=== PATIENT | female | born 1955 | race Caucasian/White ===

== ENCOUNTER 2020-03-26 08:18 | Outpatient (REF) | payer OTHER, SELFPAY | END 2020-03-26 08:19 | disposition home or self-care (01) | LOC: HO.LAB 08:18 | PROVIDERS: PCP Internal Medicine; Visit Provider Internal Medicine | DX: Z20.828 Contact with and (suspected) exposure to other viral communicable diseases (principal) | CPT/HCPCS: C9803; U0003 ==

== ENCOUNTER 2020-06-04 10:09 | Outpatient (REF) | payer OTHER, SELFPAY | END 2020-06-04 10:10 | disposition home or self-care (01) | LOC: HO.LAB 10:09 | PROVIDERS: PCP Internal Medicine; Visit Provider Internal Medicine | DX: Z20.822 Contact with and (suspected) exposure to COVID-19 (principal) | CPT/HCPCS: 36415; C9803; U0003 ==

== ENCOUNTER → 2021-03-30 14:44 | Outpatient (REF) | payer OTHER, SELFPAY ==
--- NOTE | 2021-03-30 14:48 | CA_ITS ---
INDICATIONS: OTHER SPECIFIED SOFT TISSUE DISORDERS BILATERAL ANKLE EDEMA HT: 5'2 WT: 252 BSA: BP: 120/80 M-MODE/2D MEASUREMENTS: LVd: 4.67 LVs: 3.14 IVSd: 1.10 IVSs: LVPWd: .97 LVPWs: ASC AORTA: 3.0 RVd: 3.15 AO Root: 3.8 LA: 3.0 AV Cusp: LVOT: 24 EF% 60-65% TAPSE: 1.78 OTHER: EFFUSION: 0 THROMBUS: 0 WALL MOTION: RVSP: MITRAL E/A: 59.6/72.4 = ,8 E MED 4.57 E LAT. 5.55 AV CUSPS TRILEAFLET: DOPPLER MEASUREMENTS: AORTIC PP mmHg MP mmHg VELOCITY: 154 m/s VALVE AREA: 3.53 cm^2 RA VOL. 14.2 IVC: 1.67 LA VOL. 22.5 RVS: 10 MTDD
--- NOTE | 2021-03-30 14:48 | CA_ITS ---
Transthoracic Echocardiogram Patient (Last, First, Middle): Rena Cancino A Gender: Female Date of : 1955 Age: 65 Procedure Date: 03/30/2021 Procedure Type: Transthoracic Echocardiogram Location: OP Height: 157.48 cm Weight: 114.31 kg BSA: 2.11 m2 Heart Rate: bpm BP: 120 / 80 mmHg Personal Care Aid: LUIS Sheffield MD: Radha PRAJAPATI Nursing Teacher: Marc Ewing MD Symptoms: M79.89 - Other specified soft tissue disorders Study Quality: Technically Difficult ECG Rhythm: Sinus Conclusions: - 1. Normal LV systolic function with impaired relaxation filling pattern 2. Normal cardiac valvular Doppler 3. Normal RV systolic pressure 4. No gross pericardial effusion Findings Left Ventricle Normal left ventricular size, thickness, and systolic function. The visually estimated ejection fraction is between 55-60%. Regional wall motion abnormalities can not be excluded due to suboptimal endocardial definition. Spectral Doppler is indicative of an impaired relaxation filling pattern. E/E prime ratio is between 8 and 15 consistent with indeterminate filling pressures. Right Ventricle Normal right ventricular cavity size. There is normal right ventricular systolic function. Atria The left atrium is normal in size. Interatrial shunt cannot be excluded. The right atrium was not well visualized. Aortic Valve The aortic valve was not well visualized. There is no aortic valve stenosis. There is no aortic valve regurgitation. Mitral Valve Likely normal mitral valve structure and function. There is trace mitral valve regurgitation. There is no mitral valve stenosis. Pulmonic Valve The pulmonic valve was not well visualized. Tricuspid Valve Likely normal tricuspid valve structure and function. There is trace tricuspid valve regurgitation. The right ventricular systolic pressure is normal. The right ventricular systolic pressure is 21 mmHg. Normal right atrial pressure. There is no evidence of pulmonary hypertension. Great Vessels All visible segments of the aorta are normal in size. The pulmonary artery was not well visualized. Venous The inferior vena cava is normal in size and collapses greater than 50% with inspiration. Pericardium/Pleural There is no evidence of pericardial effusion. Prior Study Comparison No significant change compared to prior study dated: 01/26/2019. Measurements 2D Linear Measurements IVSd: 1.10 0.6-0.9/0.6-1.0 cm LVIDd: 4.67 3.9-5.3/4.2-5.9 cm LVIDd Index: 2.21 2.4-3.2/2.2-3.1 cm/m2 LVIDs: 3.14 2.0-3.6 cm LVPWd: 0.97 0.7-1.1 cm Ao Root: 3.80 2.1-3.5 cm LA Diam: 3.00 2.7-3.8/3.0-4.0 cm LAIDs Index: 1.42 1.5-2.3 cm/m2 LV Mass: 212.65 67-162/88-224 g LV Mass Index: 100.78 43-95/49-115 g/m2 LVOT Diam: 2.40 3.0+(-)1.3 cm 2D Systolic Function EF 4C: 59.20 >55% EF 2C: 55.90 >55% EF BiP: 56.90 >55% Mitral Valve MV Pk E: 0.60 MV PK A: 0.72 MV Decel Time: 338.00 E/A: 0.80 E'Lateral: 5.55 E'Medial: 4.57 E/E' Med: 13.00 E/E' Lat: 10.70 PHT: 99.00 MVA PHT: 2.22 Decel [place]: 1.76 Aortic Valve AoV Pk Van: 1.54 AoV Mn Vna: 1.11 AoV VTI: 0.34 AoV Pk Grad: 9.00 Aov Mn Grad: 5.00 REGINALD Cont.VTI: 3.53 LVOT LVOT Pk Van: 1.25 LVOT Mn Avn: 0.80 LVOT VTI: 0.27 LVOT Pk Grad: 6.00 LVOT Mn Grad: 3.00 LVOT Diam: 2.40 LVOT Area: 4.52 Diastolic Function MV Pk E: 0.60 MV Pk A: 0.72 E/A: 0.80 E'Medial: 4.57 E/E' Med: 13.00 E' Laterial: 5.55 E/E' Lat: 10.70 Right Ventricle TAPSE (mm): 1.78 Tricuspid Valve TR Pk Van: 1.78 TR Pk Grad: 13.00 RA Press: 8.00 RVSP: 21.00 Great Vessels Aorta Ao Root-2D: 3.80 2.0-3.7 cm Ao Asc: 3.00 2.1-3.4 cm Updated in Other Vendor System with Status of Final Marc Ewing MD electronically signed on 04/05/2021 3:41:12 PM with status of Final
== END ==
LOC: HO.CARD 14:44
PROVIDERS: PCP Internal Medicine; Visit Provider Nurse Practitioner Family
DX: M79.89 Other specified soft tissue disorders (principal)
CPT/HCPCS: 93306

== ENCOUNTER 2021-04-21 09:44 | Outpatient (REF) | payer OTHER, SELFPAY ==
[2021-04-21 11:05] LABS: Hematocrit 50.7 % (37.0-47.0); Hemoglobin 16.1 g/dl (12.0-16.0); Mean Corpuscular HGB Conc 31.8 g/dl (31.0-35.0); Mean Corpuscular Volume 97.5 fL (80.0-98.0); Mean Platelet Volume 11.8 fL (9.4-12.3); Platelet Count 145 X10*3/uL (160-400); White Blood Count 7.9 X10*3/uL (4.8-10.8)
[2021-04-21 11:39] LABS: Alanine Aminotransferase 30 U/L (0-31); Albumin Level 4.3 g/dL (3.5-5.0); Alkaline Phosphatase 118 U/L (39-117); Anion Gap 15 (12-20); Aspartate Amino Transferase 42 U/L (5-31); Bilirubin Total 0.9 mg/dL (0.0-1.0); Blood Urea Nitrogen 16 mg/dL (9-16); Calcium 9.9 mg/dL (8.4-10.2); Carbon Dioxide 32 mmol/L (22-29); Chloride 103 mmol/L (96-108); Cholesterol 165 mg/dL; Estimated Glomerular Filt Rate 34; Glucose Fasting 88 mg/dL (60-99); HDL Cholesterol 54 mg/dL; LDL Cholesterol Calculated 81 mg/dl; Potassium 4.6 mmol/L (3.3-5.1); Sodium 145 mmol/L (135-145); Total Protein 7.4 g/dL (6.5-8.0); Triglycerides 152 mg/dL
== END 2021-04-21 09:45 | disposition home or self-care (01) ==
LOC: HO.LAB 09:44
PROVIDERS: PCP Internal Medicine; Visit Provider Nurse Practitioner Family
DX: I10 Essential (primary) hypertension (principal)
CPT/HCPCS: 36415; 80053; 80061; 85027

== ENCOUNTER 2021-06-09 12:27 | Outpatient (REF) | payer OTHER, SELFPAY ==
--- NOTE | ~2021-06-09 | US_ITS ---
EXAMINATION: US VENOUS ULTRASOUND WITH DOPPLER LOWER EXTREMITY, LEFT CLINICAL INFORMATION: Leg pain. COMPARISON: None TECHNIQUE: Ultrasound of the deep veins is performed from the hip to the calf with compression sonography and color and pulse Doppler assessment. Spectral analysis with color-flow imaging is performed. FINDINGS: There is normal venous compression and respiratory variation and augmented flow. The visualized common femoral vein, superficial femoral vein, profunda femoral vein, popliteal vein, and the trifurcation region shows no evidence of deep venous thrombosis. The left peroneal vein is not visualized due to calf swelling. There is no significant popliteal fossa cyst. If the patient's symptoms persist, followup ultrasound in 5 days 7 days might be of value to exclude proximal propagation from a non-visualized calf vein. US/US venous duplex LE LT IMPRESSION: No DVT demonstrated in the left lower extremity. Peroneal vein is not seen due to calf swelling.
== END 2021-06-09 12:28 | disposition home or self-care (01) ==
LOC: HO.US 12:27
PROVIDERS: PCP Internal Medicine; Visit Provider Nurse Practitioner Acute Care
DX: R60.0 Localized edema (principal); M79.89 Other specified soft tissue disorders
CPT/HCPCS: 93971

== ENCOUNTER 2021-06-15 11:42 | Outpatient (REF) | payer OTHER, SELFPAY ==
--- NOTE | ~2021-06-15 | XR_ITS ---
EXAMINATION: XR ankle LT min 3V, XR tibia fibula LT 2V CLINICAL INFORMATION: Reason for Exam M79.662 - Pain in left lower leg COMPARISON: Left foot radiographs 07/23/2019 TECHNIQUE: AP, lateral, and oblique views of the ankle and 2 views of the fibula and tibia XR/XR ankle LT min 3V FINDINGS/IMPRESSION: No acute fracture or dislocation. Joint spaces are preserved. No tibiotalar joint effusion. No suprapatellar joint effusion. Plantar calcaneal and Achilles tendon enthesopathy. Marked soft tissue swelling about the ankle and in the calf. Atherosclerotic vascular calcification.
--- NOTE | ~2021-06-15 | XR_ITS ---
EXAMINATION: XR ankle LT min 3V, XR tibia fibula LT 2V CLINICAL INFORMATION: Reason for Exam M79.662 - Pain in left lower leg COMPARISON: Left foot radiographs 07/23/2019 TECHNIQUE: AP, lateral, and oblique views of the ankle and 2 views of the fibula and tibia XR/XR tibia fibula LT 2V FINDINGS/IMPRESSION: No acute fracture or dislocation. Joint spaces are preserved. No tibiotalar joint effusion. No suprapatellar joint effusion. Plantar calcaneal and Achilles tendon enthesopathy. Marked soft tissue swelling about the ankle and in the calf. Atherosclerotic vascular calcification.
== END 2021-06-15 11:43 | disposition home or self-care (01) ==
LOC: HO.XRAY 11:42
PROVIDERS: PCP Internal Medicine; Visit Provider Nurse Practitioner Acute Care
DX: M79.662 Pain in left lower leg (principal)
CPT/HCPCS: 73590; 73610

== ENCOUNTER → 2021-07-31 09:07 | Outpatient (BNVA) | payer OTHER, SELFPAY | PROVIDERS: PCP Internal Medicine; Referring Provider Internal Medicine; Visit Provider Internal Medicine | DX: I25.10 Atherosclerotic heart disease of native coronary artery without angina pectoris (principal); E66.01 Morbid (severe) obesity due to excess calories; F17.200 Nicotine dependence, unspecified, uncomplicated; Z71.3 Dietary counseling and surveillance; Z71.6 Tobacco abuse counseling | CPT/HCPCS: 93005; 99212 ==

== ENCOUNTER 2021-09-11 04:20 | Inpatient (IN) | payer OTHER, SELFPAY ==
[2021-09-11] VITALS (13 sets, daily range): BP systolic 109–207; BP diastolic 38–111; PULSE 42–55; RESP 9–28; TEMP 34.5–36.5; O2SAT 88–97; BMI 43.9; BMI 51.4
--- NOTE | ~2021-09-11 | MR_ITS ---
EXAMINATION: MR ABDOMEN WITHOUT AND WITH CONTRAST CLINICAL INFORMATION: Followup renal mass seen on ultrasound. COMPARISON: Abdominal ultrasound from yesterday, previous MRI of the abdomen March [address] of the abdomen March 2015. TECHNIQUE: MR abdomen was performed without and with use of 10 mL intravenous Gadavist gadolinium contrast. Postcontrast images are performed in multiphase dynamic sequences. Imaging was performed in 3 planes. Exam is significantly limited due to motion artifact. FINDINGS: LUNG BASES: The visualized lung bases are unremarkable. LIVER, GALLBLADDER, AND BILIARY TREE: The liver is normal in size and contour. There is signal loss in the liver on [id number] sequences suggestive of fatty infiltration. No focal liver lesion. The gallbladder has been removed. There is no biliary duct dilatation. PANCREAS: Unremarkable. SPLEEN: Normal. ADRENAL GLANDS: There is a right suprarenal 4.2 x 4.7 x 4.4 cm lesion probably adrenal in origin. This does not demonstrate signal loss on gradient echo sequences. This is intermediate to low signal on T1-weighted sequences, heterogeneous in signal on T2-weighted sequences and demonstrates no evidence of enhancement. This is a new finding from previous exams. The left adrenal gland is normal. KIDNEYS AND URETERS: There is a 4.2 x 4.7 x 4.4 cm right suprarenal mass that is probably adrenal in origin. There is a slight increased stranding of the right perinephric fat. Small amount of fluid in the right posterior pararenal fascia. The kidneys are otherwise normal. GASTROINTESTINAL TRACT: No bowel obstruction. No ascites or fluid collection. ABDOMINAL WALL: No significant hernia is appreciated. LYMPH NODES: No lymphadenopathy. VASCULAR: There is dilatation of the lower abdominal aorta measuring 3.2 x 3.3 cm. OSSEOUS STRUCTURES: Marrow signal normal. There are degenerative changes of the spine. MR/MR abdomen wo/w con IMPRESSION: Very limited exam due to motion. New 4.2 x 4.7 x 4.4 cm right suprarenal mass probably adrenal in origin. Slight asymmetric fat stranding in the right perinephric fat and small amount of fluid in the posterior pararenal fascia. This may represent right adrenal hemorrhage. Differential would include a complex cyst. This is a new finding from previous exams. Follow-up CT scan may be helpful. Fatty infiltration of the liver.
--- NOTE | ~2021-09-11 | XR_ITS ---
EXAMINATION: XR CHEST CLINICAL INFORMATION: Shortness of breath COMPARISON: Chest radiograph 05/26/2019 TECHNIQUE: Frontal view of the chest was obtained. FINDINGS: Low lung volumes are present. No effusions or pneumothoraces are identified. The upper lung zones are partially obscured from visualization by maxillofacial structures projected over the upper thorax. Making allowances for low lung volumes, grossly normal pattern of pulmonary vasculature is noted. No focal pulmonary consolidation noted. Single subpleural reticular opacity is present peripherally in the left lung base and may represent minimal atelectasis. XR/XR chest 1V IMPRESSION: Low lung volumes; otherwise, no acute cardiopulmonary abnormalities identified.
--- NOTE | ~2021-09-11 | US_ITS ---
EXAMINATION: US ABDOMEN LIMITED CLINICAL INFORMATION: Transaminitis. COMPARISON: Previous MRI of the abdomen March [address] of the abdomen and pelvis March 2020 TECHNIQUE: Real-time imaging of the right upper quadrant abdominal viscera. FINDINGS: PANCREAS: Not well visualized due to bowel gas. LIVER: Liver echotexture is increased. The liver is heterogeneous probably representing fatty infiltration with areas of focal fatty sparing. The liver is normal in size and contour. There is no biliary duct dilatation. GALLBLADDER: Surgically removed COMMON BILE DUCT: Slightly dilated measuring 1 cm in diameter. This may be normal postcholecystectomy. RIGHT KIDNEY: There is a 3.9 x 4.5 x 4.2 cm hypoechoic solid lesion in the upper pole worrisome for a renal mass. No hydronephrosis. No renal calculi. The kidney measures 11.2 cm in maximum dimension. FREE FLUID: None. US/US abdomen limited IMPRESSION: Echogenic heterogeneous liver echotexture probably representing fatty infiltration with areas of focal fatty sparing. 3.9 x 4.5 x 4.2 cm solid hypoechoic lesion in the upper pole of the right kidney worrisome for a mass. Follow-up CT or MRI kidneys with and without contrast recommended. Slightly dilated common bile duct. This may be normal postcholecystectomy. Limited visualization of the pancreas.
--- NOTE | 2021-09-11 05:13 | ED.SOB ---
HPI - SOB/Dyspnea General Chief Complaint: Dyspnea Stated Complaint: Flank pain Time Seen by Provider: 09/11/21 05:13 Source: patient Mode of arrival: ambulatory Limitations: no limitations History of Present Illness HPI Narrative: Patient with increasing shortness of breath and lethargy, states she has right lower abdominal pain. MD elicited complaint: shortness of breath Pertinent past history: COPD Onset (ago): day(s) Timing: constant Severity: severe Known history of: COPD Associated symptoms: cough and wheezing Related Data Home Medications Medication Instructions Recorded Confirmed peginterferon beta-1a 125 mcg/0.5 mcg SUBCUT Q28D 09/11/21 mL subcutaneous pen injector (Plegridy) Previous Rx's Medication Instructions Recorded albuterol sulfate 90 mcg/actuation 2 puff INHALATION Q6H PRN 30 Days 05/04/20 aerosol inhaler (Ventolin HFA) #8.5 g incontinence pad, liner, disp #80 ea 06/07/20 atorvastatin 40 mg tablet 40 mg PO BEDTIME #90 tab 08/08/20 compr.stocking,knee,long,large #2 ea 02/08/21 albuterol sulfate 2.5 mg (3 mL) INHALATION TID PRN 06/09/21 30 Days #270 ml furosemide 20 mg tablet (Lasix) 20 mg PO Q OTHER DAY PRN #14 tab 06/09/21 tiotropium bromide 18 mcg capsule 1 cap INHALATION DAILY 30 Days #3 06/09/21 with inhalation device (Spiriva inh with HandiHaler) diclofenac sodium 1 % topical gel 2 g TOPICAL QID PRN 30 Days #100 g 06/22/21 (Arthritis Pain (diclofenac)) levothyroxine 25 mcg tablet 25 mcg PO DAILY 90 Days #90 tab 06/23/21 ibuprofen 800 mg tablet 800 mg PO Q8H PRN 30 Days #90 tab 07/16/21 aspirin 81 mg tablet,delayed 81 mg PO DAILY #90 tab 07/31/21 release (Adult Low Dose Aspirin) gabapentin 400 mg capsule 400 mg PO TID 30 Days #90 cap 08/20/21 Allergies Allergy/AdvReac Type Severity Reaction Status Date / Time dimethyl fumarate [Tecfidera] Allergy Intermediate hives Verified 09/11/21 05:09 Plegridy Allergy Intermediate Hives Uncoded 09/11/21 05:09 Review of Systems Constitutional: Constitutional: Reports no additional constitutional complaints Eyes: Eyes: Reports no additional eye complaints ENT: Denies dizziness Cardiovascular: Cardiovascular: Reports no additional cardiovascular complaints Respiratory: Respiratory: Reports as per HPI Gastrointestinal: Gastrointestinal: Reports no additional gastrointestinal complaints Genitourinary: Genitourinary: Reports no additional female genitourinary complaints Musculoskeletal: Musculoskeletal: Reports no additional musculoskeletal complaints Integumentary/Breasts: Skin/Breast: Denies rash Neurologic: Reports system reviewed and no additional complaints, except as documented, Denies dizziness and Denies Sensory deficit (Neuro) Psychiatric: Psychiatric: Denies anxiety [facility] Past Medical History Medical History Atherosclerotic cardiovascular disease COPD (chronic obstructive pulmonary disease) Daytime sleepiness Dyslipidemia Essential hypertension History of heart attack Morbid obesity Multiple sclerosis Swelling of both ankles Surgical History History of cholecystectomy History of heart artery stent Family History Family History Father No problems noted. Mother No problems noted. Social History Social History Housing: House Alcohol intake: never Patient Tobacco Use Status: Current everyday Tobacco user Cigarette Packs Per Day: 1 Cigarettes Per Day: 20 e-Cigarette/Vaping Use: Never Used Second Hand Smoke Exposure: No Use of substances other than those prescribed or required for medical reasons: No Advance Directives: No Current occupational status: retired Cognitive needs: No Hearing needs: No Vision needs: No Physical Exam Vital Signs: Vital Signs: Last Vital Signs Temp 94.3 F L 09/11/21 07:56 Pulse 42 L 09/11/21 07:18 Resp 14 09/11/21 07:18 BP 119/38 L 09/11/21 07:18 Pulse Ox 95 09/11/21 07:18 BMI result Body Mass Index 43.9 Const: Other: Ill appearing Nutritional Appearance: obese Orientation/consciousness: oriented to person Limitations: other limitations (lethargic) HEENT: Head: Yes normal to inspection Ears: external ears normal General nose exam: Normal external nose present Mouth: Normal oral and palatal mucosa present and oropharynx normal Throat: Yes posterior oropharynx normal Eyes: General: appearance normal, both eyes and all related structures Neck: Other: supple Neck: Yes normal visual inspection Chest: Chest palpation & inspection: normal inspection of the chest Resp: Other: diffuse rhonchi Cardio: Jugular venous distension: no JVD Rate: regular rate Rhythm: regular rhythm Heart sounds: S1 normal heart sound present and S2 normal heart sound present GI: Inspection: Yes normal to inspection Palpation (GI): Soft to palpation, nontender and No hepatosplenomegaly present Auscultation: normal bowel sounds : General: Yes no CVA tenderness Back/Spine/Pelvis: Back: no CVA tenderness Skin: General skin exam: no rashes or lesions noted Neuro: General: oriented to person Cranial nerves: Yes CN's II-XII intact bilaterally Motor exam (neuro): 5/5 motor strength present throughout Sensory Exam: No Sensory deficit (Neuro) Extrem: Other: bilateral edema Psych: Appearance: grossly normal Course Reevaluation(s) Reevaluation #1: Activated code sepsis for lethargy and hypothermia and bradycardia. Lactic acid 1.7, no WBC, LFTs are abnormal but have been chronically abnormal. With the hypothermia and bradycardia, I believe this is most likely hypothyroidism with COPD exacerbation. Will give ceftriaxone, solumedrol for COPD but will also give IV synthroid Time: 06:30 Reevaluation #2: Will cancel the 3L of fluid and give 1L as patient is not in septic shock and is chronically fluid overloaded Time: 06:31 Reevaluation #3: Discussed with Dr. Negrete will come and see the patient, TSH came back 26 Time: 07:41 MDM - SOB/Dyspnea Lab Data Result diagrams: 09/11/21 05:45 09/11/21 05:45 Labs: Lab Results 09/11/21 09/11/21 09/11/21 Range/Units 05:45 05:45 05:45 WBC (4.8-10.8) X10*3/uL RBC (4.20-5.50) X10*6/uL Hgb (12.0-16.0) g/dl Hct (37.0-47.0) % MCV (80.0-98.0) fL MCH (27.0-33.0) pg MCHC (31.0-35.0) g/dl RDW (11.0-16.0) % Plt Count (160-400) X10*3/uL MPV (9.4-12.3) fL Immature Gran % (Auto) (0.0-0.4) % Neut % (Auto) (45-73) % Lymph % (Auto) (20-40) % [place] % (Auto) (2-11) % Eos % (Auto) (0-4) % Baso % (Auto) (0-2) % Lymph # (Auto) (1.2-4.9) X10*3/uL [place] # (Auto) (0.1-1.2) X10*3/uL Eos # (Auto) (0.0-0.4) X10*3/uL Baso # (Auto) (0.0-0.2) X10*3/uL Abs Immat Gran (auto) (0.00-0.03) X10*3/uL Absolute Neuts (auto) (2.0-8.3) x10*3/uL Absolute Nucleated RBC (0.0-0.012) X10*3/uL Nucleated RBC % (auto) (0.0-0.2) /100WBC PT (9.9-13.0) SEC INR (0.9-1.1) APTT (24.1-38.0) SEC VBG pH (7.32-7.43) VBG pCO2 mmHg VBG pO2 mmHg VBG HCO3 (22-26) mmol/L VBG O2 Saturation % VBG Base Excess mmol/L Sodium 137 (135-145) mmol/L Potassium 3.6 D (3.3-5.1) mmol/L Chloride 91 L (96-108) mmol/L Carbon Dioxide 34 H (22-29) mmol/L Anion Gap 16 (12-20) BUN 9 (9-16) mg/dL Creatinine 1.33 (0.5-1.4) mg/dL Estim Creat Clear Calc 49.6 Estimated GFR 40 Random Glucose 91 (60-115) mg/dL Lactic Acid 1.7 (0.5-2.0) mmol/L Calcium 9.6 (8.4-10.2) mg/dL Total Bilirubin 1.6 H (0.0-1.0) mg/dL AST 75 H (5-31) U/L ALT 39 H (0-31) U/L Alkaline Phosphatase 112 (39-117) U/L Troponin I High Sens < 3.5 (<3.5-17.0) ng/L B-Natriuretic Peptide 66 (<100) pg/mL Total Protein 7.8 (6.5-8.0) g/dL Albumin 4.5 (3.5-5.0) g/dL Lipase 22 (8-78) U/L TSH 26.42 H (0.32-4.0) uIU/mL Free T4 0.58 L (0.71-1.85) ng/dL Urine Color Urine Appearance Urine pH (5.0-8.0) Ur Specific [place] (1.005-1.025) Urine Protein (NEG-TRACE) MG/DL Urine Glucose (UA) (NEG) MG/DL Urine Ketones (NEG) MG/DL Urine Blood (NEG) Urine Nitrite (NEG) Ur Leukocyte Esterase (NEG) Urine RBC (0) /HPF Urine WBC (0-4) /HPF Ur Squamous Epith Cells /LPF Urine Bacteria /LPF Hyaline Casts /LPF Granular Casts /LPF COVID-19 (CASEY) (Negative) COVID-19 Clin Com Influenza Type A (JENNA) (Negative) Influenza Type B (JENNA) (Negative) Influenza A & B Note 09/11/21 09/11/21 09/11/21 Range/Units 05:45 05:45 05:50 WBC 8.7 (4.8-10.8) X10*3/uL RBC 5.57 H (4.20-5.50) X10*6/uL Hgb 17.4 H (12.0-16.0) g/dl Hct 52.0 H (37.0-47.0) % MCV 93.4 (80.0-98.0) fL MCH 31.2 (27.0-33.0) pg MCHC 33.5 (31.0-35.0) g/dl RDW 15.8 (11.0-16.0) % Plt Count 124 L (160-400) X10*3/uL MPV 10.4 (9.4-12.3) fL Immature Gran % (Auto) 1.2 H (0.0-0.4) % Neut % (Auto) 78.0 H (45-73) % Lymph % (Auto) 12.2 L (20-40) % [place] % (Auto) 6.3 (2-11) % Eos % (Auto) 1.8 (0-4) % Baso % (Auto) 0.5 (0-2) % Lymph # (Auto) 1.1 L (1.2-4.9) X10*3/uL [place] # (Auto) 0.6 (0.1-1.2) X10*3/uL Eos # (Auto) 0.2 (0.0-0.4) X10*3/uL Baso # (Auto) 0.0 (0.0-0.2) X10*3/uL Abs Immat Gran (auto) 0.10 H (0.00-0.03) X10*3/uL Absolute Neuts (auto) 6.8 (2.0-8.3) x10*3/uL Absolute Nucleated RBC 0.000 (0.0-0.012) X10*3/uL Nucleated RBC % (auto) 0.0 (0.0-0.2) /100WBC PT 10.7 (9.9-13.0) SEC INR 0.9 (0.9-1.1) APTT 50.3 H (24.1-38.0) SEC VBG pH 7.46 H (7.32-7.43) VBG pCO2 49 mmHg VBG pO2 61 mmHg VBG HCO3 35 H (22-26) mmol/L VBG O2 Saturation 91.0 % VBG Base Excess 9.8 mmol/L Sodium (135-145) mmol/L Potassium (3.3-5.1) mmol/L Chloride (96-108) mmol/L Carbon Dioxide (22-29) mmol/L Anion Gap (12-20) BUN (9-16) mg/dL Creatinine (0.5-1.4) mg/dL Estim Creat Clear Calc Estimated GFR Random Glucose (60-115) mg/dL Lactic Acid (0.5-2.0) mmol/L Calcium (8.4-10.2) mg/dL Total Bilirubin (0.0-1.0) mg/dL AST (5-31) U/L ALT (0-31) U/L Alkaline Phosphatase (39-117) U/L Troponin I High Sens (<3.5-17.0) ng/L B-Natriuretic Peptide (<100) pg/mL Total Protein (6.5-8.0) g/dL Albumin (3.5-5.0) g/dL Lipase (8-78) U/L TSH (0.32-4.0) uIU/mL Free T4 (0.71-1.85) ng/dL Urine Color Urine Appearance Urine pH (5.0-8.0) Ur Specific [place] (1.005-1.025) Urine Protein (NEG-TRACE) MG/DL Urine Glucose (UA) (NEG) MG/DL Urine Ketones (NEG) MG/DL Urine Blood (NEG) Urine Nitrite (NEG) Ur Leukocyte Esterase (NEG) Urine RBC (0) /HPF Urine WBC (0-4) /HPF Ur Squamous Epith Cells /LPF Urine Bacteria /LPF Hyaline Casts /LPF Granular Casts /LPF COVID-19 (CASEY) (Negative) COVID-19 Clin Com Influenza Type A (JENNA) (Negative) Influenza Type B (JENNA) (Negative) Influenza A & B Note 09/11/21 09/11/21 09/11/21 Range/Units 07:41 07:41 07:57 WBC (4.8-10.8) X10*3/uL RBC (4.20-5.50) X10*6/uL Hgb (12.0-16.0) g/dl Hct (37.0-47.0) % MCV (80.0-98.0) fL MCH (27.0-33.0) pg MCHC (31.0-35.0) g/dl RDW (11.0-16.0) % Plt Count (160-400) X10*3/uL MPV (9.4-12.3) fL Immature Gran % (Auto) (0.0-0.4) % Neut % (Auto) (45-73) % Lymph % (Auto) (20-40) % [place] % (Auto) (2-11) % Eos % (Auto) (0-4) % Baso % (Auto) (0-2) % Lymph # (Auto) (1.2-4.9) X10*3/uL [place] # (Auto) (0.1-1.2) X10*3/uL Eos # (Auto) (0.0-0.4) X10*3/uL Baso # (Auto) (0.0-0.2) X10*3/uL Abs Immat Gran (auto) (0.00-0.03) X10*3/uL Absolute Neuts (auto) (2.0-8.3) x10*3/uL Absolute Nucleated RBC (0.0-0.012) X10*3/uL Nucleated RBC % (auto) (0.0-0.2) /100WBC PT (9.9-13.0) SEC INR (0.9-1.1) APTT (24.1-38.0) SEC VBG pH (7.32-7.43) VBG pCO2 mmHg VBG pO2 mmHg VBG HCO3 (22-26) mmol/L VBG O2 Saturation % VBG Base Excess mmol/L Sodium (135-145) mmol/L Potassium (3.3-5.1) mmol/L Chloride (96-108) mmol/L Carbon Dioxide (22-29) mmol/L Anion Gap (12-20) BUN (9-16) mg/dL Creatinine (0.5-1.4) mg/dL Estim Creat Clear Calc Estimated GFR Random Glucose (60-115) mg/dL Lactic Acid (0.5-2.0) mmol/L Calcium (8.4-10.2) mg/dL Total Bilirubin (0.0-1.0) mg/dL AST (5-31) U/L ALT (0-31) U/L Alkaline Phosphatase (39-117) U/L Troponin I High Sens (<3.5-17.0) ng/L B-Natriuretic Peptide (<100) pg/mL Total Protein (6.5-8.0) g/dL Albumin (3.5-5.0) g/dL Lipase (8-78) U/L TSH (0.32-4.0) uIU/mL Free T4 (0.71-1.85) ng/dL Urine Color YELLOW Urine Appearance CLEAR Urine pH 7.0 (5.0-8.0) Ur Specific [place] 1.020 (1.005-1.025) Urine Protein 2+ H (NEG-TRACE) MG/DL Urine Glucose (UA) NEG (NEG) MG/DL Urine Ketones NEG (NEG) MG/DL Urine Blood 1+ H (NEG) Urine Nitrite NEG (NEG) Ur Leukocyte Esterase NEG (NEG) Urine RBC 10-14 H (0) /HPF Urine WBC 0-2 (0-4) /HPF Ur Squamous Epith Cells 1+ /LPF Urine Bacteria NONE /LPF Hyaline Casts 0-2 /LPF Granular Casts 0-2 /LPF COVID-19 (CASEY) Negative (Negative) COVID-19 Clin Com See Note Influenza Type A (JENNA) Negative (Negative) Influenza Type B (JENNA) Negative (Negative) Influenza A & B Note See Note Imaging Data Chest x-ray: Radiologist's impression: IMPRESSION: Low lung volumes; otherwise, no acute cardiopulmonary abnormalities identified. ? Procedures Procedure Narrative Procedure Narrative: Patient prepped, IV inserted under ultrasound. Critical Care Time Critical Care Time Attestation: I spent 40 minutes of critical care, with interventions, assessments, speaking to patient, consultants, and family. Discharge Plan Discharge Clinical Impression: Hypothyroid coma, COPD exacerbation Patient Disposition: Admitted As Inpatient
[2021-09-11 05:54] LABS: Mean Corpuscular Volume 93.4 fL (80.0-98.0); Mean Platelet Volume 10.4 fL (9.4-12.3)
[2021-09-11 05:55] LABS: PLT CLUMP 1; SCAN SMEAR FLAG 1
[2021-09-11 05:56] LABS: Basophils Percent Auto 0.5 % (0-2); Eosinophils Absolute Auto 0.2 X10*3/uL (0.0-0.4); Eosinophils Percent Auto 1.8 % (0-4); Hemoglobin 17.4 g/dl (12.0-16.0); Imm Gran Pct Auto 1.2 % (0.0-0.4); Lymphocytes Absolute Auto 1.1 X10*3/uL (1.2-4.9); Lymphocytes Percent Auto 12.2 % (20-40); Mean Corpuscular HGB Conc 33.5 g/dl (31.0-35.0); Mean Corpuscular Hemoglobin 31.2 pg (27.0-33.0); Monocytes Absolute Auto 0.6 X10*3/uL (0.1-1.2); Monocytes Percent Auto 6.3 % (2-11); Neutrophils Absolute Auto 6.8 x10*3/uL (2.0-8.3); Red Blood Count 5.57 X10*6/uL (4.20-5.50); Red Cell Distribution Width 15.8 % (11.0-16.0)
[2021-09-11 05:58] LABS: Venous Blood Gas Refer to POC result
[2021-09-11 06:00] LABS: VBG Base Excess 9.8 mmol/L; VBG HCO3 35 mmol/L (22-26); VBG pCO2 49 mmHg; VBG pH 7.46 (7.32-7.43); VBG pO2 61 mmHg
[2021-09-11 06:02] LABS: Lactic Acid 1.7 mmol/L (0.5-2.0)
[2021-09-11 06:06] LABS: MANUAL DIFF FLAG NO; Platelet Count 124 X10*3/uL (160-400); White Blood Count 8.7 X10*3/uL (4.8-10.8)
[2021-09-11 06:07] LABS: INTERNATIONAL NORM RATIO 0.9 (0.9-1.1); Prothrombin Time 10.7 SEC (9.9-13.0)
[2021-09-11 06:10] LABS: Alanine Aminotransferase 39 U/L (0-31); Albumin Level 4.5 g/dL (3.5-5.0); Alkaline Phosphatase 112 U/L (39-117); Anion Gap 16 (12-20); Aspartate Amino Transferase 75 U/L (5-31); Bilirubin Total 1.6 mg/dL (0.0-1.0); Blood Urea Nitrogen 9 mg/dL (9-16); Calcium 9.6 mg/dL (8.4-10.2); Carbon Dioxide 34 mmol/L (22-29); Chloride 91 mmol/L (96-108); Creatinine Clr Calc Pharmacy 49.6; Estimated Glomerular Filt Rate 40; Glucose Random 91 mg/dL (60-115); Lipase 22 U/L (8-78); Partial Thromboplastin Time 50.3 SEC (24.1-38.0); Potassium 3.6 mmol/L (3.3-5.1); Sodium 137 mmol/L (135-145); Total Protein 7.8 g/dL (6.5-8.0)
[2021-09-11] MEDS: Albuterol Sulfate 90 MCG 8 GM INHALER 4 PUFF INHALE (06:20)
[2021-09-11 06:31] LABS: B Type Natriuretic Peptide 66 pg/mL (<100)
[2021-09-11 06:34] LABS: Troponin-I High Sensitivity < 3.5 ng/L (<3.5-17.0)
[2021-09-11] MEDS: 0.9 % Sodium Chloride 500 ML 999 ML IV (06:48)
[2021-09-11 06:54] LABS: Free T4 (Free Thyroxine) 0.58 ng/dL (0.71-1.85); Thyroid Stimulating Hormone 26.42 uIU/mL (0.32-4.0)
--- NOTE | 2021-09-11 06:54 | PC.NURSE ---
pt came in with sob, unable to ambulate. labs drawn, Iv placed by ultra sound. pt has a low core temp. bear hugger placed. pt Ekg completed. Respiratory provided a breathing treatment.
[2021-09-11] MEDS: Levothyroxine Sodium 100 MCG VIAL 25 MCG IVPUSH (07:17)
--- NOTE | 2021-09-11 07:21 | PC.NURSE ---
Thyroid medication reviewed with Dr. Knox and Pharmacy.
[2021-09-11] MEDS: Atropine Sulfate 1 MG/10 ML SYRINGE 0.5 MG IVPUSH (07:32)
--- NOTE | 2021-09-11 07:51 | PC.NURSE ---
straight cath completed, pt tolerated well. yyellow urine sent to lab. pt lethargic but is arrousable to name, rolled for rectal temp. snoring respiratiosn at times, contin ues on bare hugger.
[2021-09-11 08:03] LABS: Appearance Urine CLEAR; Color Urine YELLOW; Glucose Urine UA NEG (NEG); Leukocyte Esterase Urine NEG (NEG); Nitrite Urine NEG (NEG); UACC Culture Trigger NO; Urine Blood 1+ (NEG); Urine Ketones NEG (NEG); Urine Protein 2+ MG/DL (NEG-TRACE)
[2021-09-11 08:13] LABS: Squamous Epithelial Cell Urine 1+ /LPF
[2021-09-11 08:14] LABS: WBC Urine 0-2 /HPF (0-4)
[2021-09-11 08:15] LABS: Granular Casts Urine 0-2 /LPF; Hyaline Casts Urine 0-2 /LPF
[2021-09-11 08:23] LABS: COVID-19 Test Negative (Negative); IDNOW Serial# 16C4AD1C; Influenza A Negative (Negative); Influenza B2 Negative (Negative)
--- NOTE | 2021-09-11 08:24 | PM.CCN ---
Critical Care Event Note Summary Date of Service: 09/11/21 Code activated: No Narrative: 65-year-old lady with underlying obesity, hypothyroidism, COPD, CAD, poor compliance with medication being admitted on 09/11/2021 with complaints of malaise dyspnea. On ER evaluation patient noted to be hypothermic, bradycardic, but maintain systolic blood pressure in 110 to 120s, lethargic, but arousable and answering appropriately. TSH 26, FT4 0.58, given 25 mcg of IV Synthroid and put on a Jackson Hugger. On my evaluation, lethargic, arousable, answers appropriately, heart rate in 40s, systolic blood pressure 120s, complains of malaise. Would suggest to add additional 75 mcg of IV Synthroid today for total dose of 100 mcg per day, continue over the next 3-5 days, until symptoms improve, to decrease to her baseline dose of 25 mcg daily at that time. At this time patient does not require intensive care unit level of care, please notify for re-evaluation, if patient's condition changes. Critical Care Time (minutes): 0
[2021-09-11 08:48] LABS: Influenza A PCR NEGATIVE (Negative); Influenza B PCR NEGATIVE (Negative); Resp Syncy Virus RNA Qual PCR NEGATIVE (Negative); SARS COV2 PCR INHOUSE NEGATIVE (Negative)
--- NOTE | 2021-09-11 09:23 | P.HPHOSP_ITS ---
History of Present Illness Date of Service: 09/11/21 Chief Complaint: abd pain 65F presented with abd pain for one day. history taken from roomate, as patient is currently obtunded. she states patient has been progressively more lethargic and sleepy over the last few months, she does not follow with physicians and questions her medication compliance. patient does not use CPAP for MAXIMO. she reports weight gain and abdominal and lower extremity swelling. patient had been complaining of feeling sluggish and cold. she has known hypothyroid and is on 25mcg daily at home, but unclear if taking. in ED found to be hypothermic, bradycardic, lethargic. TSH 26.42, free t4 0.58. Review of Systems Review of Systems: Yes Unobtainable due to mental condition PMFSH Medical History Atherosclerotic cardiovascular disease Chronic diastolic (congestive) heart failure COPD (chronic obstructive pulmonary disease) Dyslipidemia Essential hypertension Fatty liver History of heart attack Morbid obesity Multiple sclerosis MAXIMO (obstructive sleep apnea) Family History Father CAD (coronary artery disease) Mother No problems noted. Brother CAD (coronary artery disease) Surgical History History of cholecystectomy History of heart artery stent Social History Housing: House Alcohol intake: never Patient Tobacco Use Status: Current everyday Tobacco user Cigarette Packs Per Day: 1 Cigarettes Per Day: 20 e-Cigarette/Vaping Use: Never Used Second Hand Smoke Exposure: No Use of substances other than those prescribed or required for medical reasons: No Substance Use Type: Crack/Cocaine Advance Directives: No Current occupational status: retired Cognitive needs: No Hearing needs: No Vision needs: No Meds Allergies Allergy/AdvReac Type Severity Reaction Status Date / Time dimethyl fumarate [Tecfidera] Allergy Intermediate hives Verified 09/11/21 05:09 Plegridy Allergy Intermediate Hives Uncoded 09/11/21 05:09 Active Medications: Current Medications Acetaminophen (Acetaminophen 325 Mg Tablet) 650 mg PO Q6H PRN PRN Reason: Pain, Mild (Pain Scale 1-3) Enoxaparin Sodium (Enoxaparin Sodium 40 Mg/0.4 Ml Syringe) 40 mg SUBCUT Q24H [facility] Sodium Chloride (Ns) 1,000 mls @ 999 mls/hr IVCONT .Q1H1M [facility] Stop: 09/11/21 10:45 Levothyroxine Sodium (Levothyroxine Sodium 100 Mcg Vial) 100 mcg IVPUSH DAILY [facility] Pharmacy Consult (Consult Rx Perform Med Rec) 1 each MISCELLANE ONCE PRN PRN Reason: Consult order Sodium Chloride (0.9 % Sodium Chloride Flush 3 Ml Syringe) 3 ml IVFLUSH QSHIFT [facility] Home Medications Medication Instructions Recorded Confirmed Last Taken Type peginterferon beta-1a 125 mcg/0.5 mcg SUBCUT Q28D 09/11/21 Unknown History mL subcutaneous pen injector (Plegridy) Physical Exam Vital Signs and Narrative: Vital Signs: Last Vital Signs Temp 94.3 F L 09/11/21 07:56 Pulse 42 L 09/11/21 07:18 Resp 14 09/11/21 07:18 BP 119/38 L 09/11/21 07:18 Pulse Ox 95 09/11/21 07:18 BMI result Body Mass Index 43.9 General: obtunded HEENT: atraumatic Neck: normal to visual inspection CVS: S1, S2, slow rate Resp: CTA bilateral Chest: non tender GI: soft, non tender, non distended : no CVA tenderness Skin: cool Extremities: LE edema Neuro: obtunded, reacts to sternal rub, protecting airway Psych: impaired insight Results Labs CBC and Chem 7: 09/11/21 05:45 09/11/21 05:45 Labs: Laboratory Results - last 24 hr 09/11/21 09/11/21 09/11/21 05:45 05:45 05:45 MCV MCH MCHC RDW Plt Count MPV Immature Gran % (Auto) Neut % (Auto) Lymph % (Auto) [place] % (Auto) Eos % (Auto) Baso % (Auto) Lymph # (Auto) [place] # (Auto) Eos # (Auto) Baso # (Auto) Abs Immat Gran (auto) Absolute Neuts (auto) Absolute Nucleated RBC Nucleated RBC % (auto) PT INR APTT VBG pH VBG pCO2 VBG pO2 VBG HCO3 VBG O2 Saturation VBG Base Excess Anion Gap 16 Estim Creat Clear Calc 49.6 Estimated GFR 40 Random Glucose 91 Lactic Acid 1.7 Calcium 9.6 Total Bilirubin 1.6 H AST 75 H ALT 39 H Alkaline Phosphatase 112 Troponin I High Sens < 3.5 B-Natriuretic Peptide 66 Total Protein 7.8 Albumin 4.5 Lipase 22 TSH 26.42 H Free T4 0.58 L Urine Color Urine Appearance Urine pH Ur Specific [place] Urine Protein Urine Glucose (UA) Urine Ketones Urine Blood Urine Nitrite Ur Leukocyte Esterase Urine RBC Urine WBC Ur Squamous Epith Cells Urine Bacteria Hyaline Casts Granular Casts COVID-19 (CASEY) COVID-19 Clin Com Influenza Type A (JENNA) Influenza Type A (PCR) Influenza Type B (JENNA) Influenza Type B (PCR) Influenza A & B Note RSV RNA Qual (PCR) SARS-CoV-2 RNA (RT-PCR) 09/11/21 09/11/21 09/11/21 05:45 05:45 05:50 MCV 93.4 MCH 31.2 MCHC 33.5 RDW 15.8 Plt Count 124 L MPV 10.4 Immature Gran % (Auto) 1.2 H Neut % (Auto) 78.0 H Lymph % (Auto) 12.2 L [place] % (Auto) 6.3 Eos % (Auto) 1.8 Baso % (Auto) 0.5 Lymph # (Auto) 1.1 L [place] # (Auto) 0.6 Eos # (Auto) 0.2 Baso # (Auto) 0.0 Abs Immat Gran (auto) 0.10 H Absolute Neuts (auto) 6.8 Absolute Nucleated RBC 0.000 Nucleated RBC % (auto) 0.0 PT 10.7 INR 0.9 APTT 50.3 H VBG pH 7.46 H VBG pCO2 49 VBG pO2 61 VBG HCO3 35 H VBG O2 Saturation 91.0 VBG Base Excess 9.8 Anion Gap Estim Creat Clear Calc Estimated GFR Random Glucose Lactic Acid Calcium Total Bilirubin AST ALT Alkaline Phosphatase Troponin I High Sens B-Natriuretic Peptide Total Protein Albumin Lipase TSH Free T4 Urine Color Urine Appearance Urine pH Ur Specific [place] Urine Protein Urine Glucose (UA) Urine Ketones Urine Blood Urine Nitrite Ur Leukocyte Esterase Urine RBC Urine WBC Ur Squamous Epith Cells Urine Bacteria Hyaline Casts Granular Casts COVID-19 (CASEY) COVID-19 Clin Com Influenza Type A (JENNA) Influenza Type A (PCR) Influenza Type B (JENNA) Influenza Type B (PCR) Influenza A & B Note RSV RNA Qual (PCR) SARS-CoV-2 RNA (RT-PCR) 09/11/21 09/11/21 09/11/21 07:41 07:41 07:41 MCV MCH MCHC RDW Plt Count MPV Immature Gran % (Auto) Neut % (Auto) Lymph % (Auto) [place] % (Auto) Eos % (Auto) Baso % (Auto) Lymph # (Auto) [place] # (Auto) Eos # (Auto) Baso # (Auto) Abs Immat Gran (auto) Absolute Neuts (auto) Absolute Nucleated RBC Nucleated RBC % (auto) PT INR APTT VBG pH VBG pCO2 VBG pO2 VBG HCO3 VBG O2 Saturation VBG Base Excess Anion Gap Estim Creat Clear Calc Estimated GFR Random Glucose Lactic Acid Calcium Total Bilirubin AST ALT Alkaline Phosphatase Troponin I High Sens B-Natriuretic Peptide Total Protein Albumin Lipase TSH Free T4 Urine Color Urine Appearance Urine pH Ur Specific [place] Urine Protein Urine Glucose (UA) Urine Ketones Urine Blood Urine Nitrite Ur Leukocyte Esterase Urine RBC Urine WBC Ur Squamous Epith Cells Urine Bacteria Hyaline Casts Granular Casts COVID-19 (CASEY) Negative COVID-19 Clin Com See Note Influenza Type A (JENNA) Negative Influenza Type A (PCR) NEGATIVE Influenza Type B (JENNA) Negative Influenza Type B (PCR) NEGATIVE Influenza A & B Note See Note RSV RNA Qual (PCR) NEGATIVE SARS-CoV-2 RNA (RT-PCR) NEGATIVE 09/11/21 07:57 MCV MCH MCHC RDW Plt Count MPV Immature Gran % (Auto) Neut % (Auto) Lymph % (Auto) [place] % (Auto) Eos % (Auto) Baso % (Auto) Lymph # (Auto) [place] # (Auto) Eos # (Auto) Baso # (Auto) Abs Immat Gran (auto) Absolute Neuts (auto) Absolute Nucleated RBC Nucleated RBC % (auto) PT INR APTT VBG pH VBG pCO2 VBG pO2 VBG HCO3 VBG O2 Saturation VBG Base Excess Anion Gap Estim Creat Clear Calc Estimated GFR Random Glucose Lactic Acid Calcium Total Bilirubin AST ALT Alkaline Phosphatase Troponin I High Sens B-Natriuretic Peptide Total Protein Albumin Lipase TSH Free T4 Urine Color YELLOW Urine Appearance CLEAR Urine pH 7.0 Ur Specific [place] 1.020 Urine Protein 2+ H Urine Glucose (UA) NEG Urine Ketones NEG Urine Blood 1+ H Urine Nitrite NEG Ur Leukocyte Esterase NEG Urine RBC 10-14 H Urine WBC 0-2 Ur Squamous Epith Cells 1+ Urine Bacteria NONE Hyaline Casts 0-2 Granular Casts 0-2 COVID-19 (CASEY) COVID-19 Clin Com Influenza Type A (JENNA) Influenza Type A (PCR) Influenza Type B (JENNA) Influenza Type B (PCR) Influenza A & B Note RSV RNA Qual (PCR) SARS-CoV-2 RNA (RT-PCR) Imaging Radiologist's Impressions: Impressions Chest X-Ray 09/11/21 06:20 IMPRESSION: Low lung volumes; otherwise, no acute cardiopulmonary abnormalities identified. Assessment and Plan (1) Hypothyroid coma: Status: Acute Plan 65F presented with abd pain, found to be severly hypothyroid abd pain appears comfortable, ?contsipation hypothryoid coma complicatred by metabolic encephalopathy, sinus bradycardia, hypothermia synthroid 100mcg iv daily for several days monitor lachelle pepe morbid obesity multifactorial, low rufus diet treat hypothyroid copd bronchodilators as needed transaminitis suspect NAFLD history of drug use, check hepatitis panel, abd us CAD asa, statin MS outpatient neuro follow up chronic diastolic chf lasix hld statin dvt prophylaxis - lovenox full code Patient is significantly obtunded due to severe hypothyroid causing hypothermia and bradycardia, high risk for decompensation, therefore, likely to require at least 2midnights in hospital Quality Stroke Does the patient have a stroke diagnosis?: No VTE Prior VTE?: No VTE Risk Level:: Medical - moderate - high VTE Device Contraindication: Treatment Not Indicated VTE Drug Contraindication: N/A - Med Ordered
--- NOTE | 2021-09-11 09:24 | PHA.MEDREC ---
Pharmacy Consult ? Medication Reconciliation Pharmacy has completed the medication reconciliation.
[2021-09-11] MEDS: 0.9 % Sodium Chloride 1,000 ML 999 ML IVCONT ×2 (09:33→09:50)
[2021-09-11] MEDS: Levothyroxine Sodium 100 MCG VIAL 75 MCG IVPUSH (09:34)
[2021-09-11] MEDS: Enoxaparin Sodium 40 MG/0.4 ML SYRINGE SUBCUT (09:54)
--- NOTE | 2021-09-11 19:26 | PC.NURSE ---
Report called to Janis BUSBY
[2021-09-11] MEDS: Atorvastatin Calcium 40 MG TABLET PO (20:27)
[2021-09-11] MEDS: 0.9 % Sodium Chloride Flush 3 ML SYRINGE IVFLUSH (20:27)
--- NOTE | 2021-09-11 21:13 | MHC.CM.PN ---
IMM 09/11. Reviewed with HCP/friend Heather Quinn ([phone]). Copy left at bedside. HCP on file. Pt vague, sleeping off and on. States she wants to go home. Pt doesn't seem to understand just how ill she is. Lives with HCP/friend. Uses a nebulizer, cane, walker. Has [employer] services through [employer] insurance. HCP is unsure if patient has been taking her medications. D/C plan pending hospital course. STR vs home with existing services. HCP Heather will provide transportation home. CM to follow for d/c needs.
[2021-09-12 03:52] VITALS: BP 116/62; PULSE 45; RESP 18; TEMP 36.2; O2SAT 92
[2021-09-12 06:41] LABS: Hematocrit 46.2 % (37.0-47.0); Hemoglobin 15.2 g/dl (12.0-16.0); Mean Corpuscular HGB Conc 32.9 g/dl (31.0-35.0); Mean Corpuscular Hemoglobin 31.8 pg (27.0-33.0); Mean Corpuscular Volume 96.7 fL (80.0-98.0); NRBC Pct Auto 0.2 /100WBC (0.0-0.2); Platelet Count 113 X10*3/uL (160-400); Red Blood Count 4.78 X10*6/uL (4.20-5.50); Red Cell Distribution Width 16.3 % (11.0-16.0); White Blood Count 9.6 X10*3/uL (4.8-10.8)
[2021-09-12 06:57] LABS: Anion Gap 13 (12-20); Blood Urea Nitrogen 10 mg/dL (9-16); Calcium 8.6 mg/dL (8.4-10.2); Carbon Dioxide 33 mmol/L (22-29); Chloride 98 mmol/L (96-108); Creatinine Clr Calc Pharmacy 49.1; Estimated Glomerular Filt Rate 36; Glucose Fasting 73 mg/dL (60-99); Magnesium 1.7 mg/dL (1.6-2.6); Potassium 3.2 mmol/L (3.3-5.1); Sodium 141 mmol/L (135-145)
[2021-09-12 07:09] LABS: HBS Num1 2.54 mIU/mL (0-7.99); HBc Num1 0.07 S/CO (0.00-0.79); HBsAGNum1 0.17 S/CO (0.00-0.99); Hepatitis B Core Antibody Nonreactive (Nonreactive); Hepatitis B Surface Antigen Negative (Negative); ~HepC Num1 0.11 S/CO (0.00-0.79); ~Hepatitis B Surface Antibody NONREACTIVE (Nonreactive); ~Hepatitis C Antibody Nonreactive (Nonreactive)
[2021-09-12 07:17] VITALS: BP 129/73; PULSE 54; RESP 18; TEMP 36.1; O2SAT 92
[2021-09-12] MEDS: Aspirin Enteric Coated 81 MG TABLET.DR PO (07:43)
[2021-09-12] MEDS: Potassium Chloride ER 20 MEQ TAB.ER.PRT 40 MEQ PO (07:43)
[2021-09-12] MEDS: 0.9 % Sodium Chloride Flush 3 ML SYRINGE IVFLUSH ×2 (07:43→20:36)
[2021-09-12] MEDS: Levothyroxine Sodium 100 MCG/5 ML VIAL IVPUSH (07:49)
--- NOTE | 2021-09-12 10:18 | HO.PM.IMPN ---
Subjective Subjective Date of Service: 09/12/21 Interval History: cc: right flank pain interval history:more alert, still with pain Cardiovascular Cardiovascular: Reports no additional cardiovascular complaints Respiratory Respiratory: Reports no additional respiratory complaints Physical Exam Vital Signs: Vital Signs: Last Vital Signs Temp 97.0 F 09/12/21 07:17 Pulse 54 09/12/21 07:17 Resp 18 09/12/21 07:17 BP 129/73 09/12/21 07:17 Pulse Ox 92 09/12/21 07:17 BMI result Body Mass Index 51.4 General: AO X 3, no acute distress Resp: CTA bilateral, no accessory muscles used CVS: S1,S2,RRR GI: soft, non tender, non distended Neuro: motor grossly intact, alert Psych: appropriate affect, appropriate insight Objective Data Active Medications Acetaminophen (Acetaminophen 325 Mg Tablet) 650 mg PO Q6H PRN PRN Reason: Pain, Mild (Pain Scale 1-3) Albuterol Sulfate (Albuterol Sulfate 90 Mcg 8 Gm Inhaler) 2 puff INHALE Q6H PRN PRN Reason: bronchospasm Albuterol Sulfate (Albuterol Sulfate (0.083%) 2.5 Mg/3 Ml Vial.Neb) 2.5 mg INHALE TID PRN PRN Reason: bronchospasm Aspirin (Aspirin Enteric Coated 81 Mg Tablet.) 81 mg PO DAILY [facility] Last Admin: 09/12/21 07:43 Dose: 81 mg Documented by: SHINE Atorvastatin Calcium (Atorvastatin Calcium 40 Mg Tablet) 40 mg PO BEDTIME [facility] Last Admin: 09/11/21 20:27 Dose: 40 mg Documented by: MARGE Enoxaparin Sodium (Enoxaparin Sodium 40 Mg/0.4 Ml Syringe) 40 mg SUBCUT Q24H [facility] Last Admin: 09/11/21 09:54 Dose: 40 mg Documented by: SABAS Furosemide (Furosemide 20 Mg Tablet) 20 mg PO Q2D PRN; Protocol PRN Reason: edema Levothyroxine Sodium (Levothyroxine Sodium 100 Mcg/5 Ml Vial) 100 mcg IVPUSH DAILY@0630 [facility] Last Admin: 09/12/21 07:49 Dose: 100 mcg Documented by: SHINE Pharmacy Consult (Consult Rx Perform Med Rec) 1 each MISCELLANE ONCE PRN PRN Reason: Consult order Sodium Chloride (0.9 % Sodium Chloride Flush 3 Ml Syringe) 3 ml IVFLUSH QSHIFT [facility] Last Admin: 09/12/21 07:43 Dose: 3 ml Documented by: SHINE Labs CBC & Chem 7: 09/12/21 06:04 09/12/21 06:04 Labs: Laboratory Results - last 24 hr 09/12/21 09/12/21 09/12/21 06:04 06:04 06:04 MCV 96.7 MCH 31.8 MCHC 32.9 RDW 16.3 H Plt Count 113 L MPV 11.0 Absolute Nucleated RBC 0.020 H Nucleated RBC % (auto) 0.2 Anion Gap 13 Estim Creat Clear Calc 49.1 Estimated GFR 36 Fasting Glucose 73 Calcium 8.6 D Magnesium 1.7 Hep Bs Antigen Negative Hep Bs Antibody NONREACTIVE Hep B Core Total Ab Nonreactive Hepatitis C Ab (EIA) Nonreactive Microbiology Microbiology Results: Microbiology 09/11/21 07:41 Blood Culture - Preliminary Blood - Venous No growth after 24 hours. 09/11/21 05:45 Blood Culture - Preliminary Blood - Venous No growth after 24 hours. Assessment and Plan (1) Renal mass: Status: Acute Plan 65F presented with abd pain, found to be severly hypothyroid abd pain likely due to right renal mass concerning for malignancy pain control check MRI abd (will do inpatient due to continued symptoms) hypothryoid coma complicated by metabolic encephalopathy, sinus bradycardia, hypothermia synthroid 100mcg iv daily for several days much improved likely needs higher than 25mcg daily at baseline, roommate does not think she was taking, but patient insists she was monitor tele morbid obesity multifactorial, low rufus diet treat hypothyroid copd bronchodilators as needed NAFLD weight loss CAD asa, statin MS outpatient neuro follow up chronic diastolic chf lasix hld statin dvt prophylaxis - lovenox full code reason for continued hospitalization: still bradycardic from hypothyroid requriing tele and iv synthroid, also with ongoing abd pain from renal mass Quality Stroke Does the patient have a stroke diagnosis?: No VTE Prior VTE?: No VTE Risk Level:: Medical - moderate - high VTE Device Contraindication: Treatment Not Indicated VTE Drug Contraindication: N/A - Med Ordered
[2021-09-12 11:24] VITALS: BP 166/78; PULSE 55; RESP 19; TEMP 36.4; O2SAT 93
[2021-09-12] MEDS: Enoxaparin Sodium 40 MG/0.4 ML SYRINGE SUBCUT (12:10)
[2021-09-12 15:57] VITALS: BP 168/97; PULSE 59; RESP 19; TEMP 36.7; O2SAT 94
[2021-09-12 19:38] VITALS: BP 122/77; PULSE 56; RESP 19; TEMP 37.1; O2SAT 95
[2021-09-12] MEDS: Atorvastatin Calcium 40 MG TABLET PO (20:36)
[2021-09-12] MEDS: Acetaminophen 325 MG TABLET 650 MG PO (20:41)
[2021-09-13] VITALS (10 sets, daily range): BP systolic 103–142; BP diastolic 64–89; PULSE 46–67; RESP 16–19; TEMP 36.3–36.7; O2SAT 90–98
--- NOTE | 2021-09-13 | ECG_ITS ---
Test Reason : eval bbb Blood Pressure : / mmHG Vent. Rate : 056 BPM Atrial Rate : 056 BPM P-R Int : 196 ms QRS Dur : 096 ms QT Int : 404 ms P-R-T Axes : 053 021 155 degrees QTc Int : 389 ms Sinus bradycardia Septal infarct , age undetermined Abnormal ECG When compared with ECG of 13-MAR-2015 00:00, Minimal criteria for Inferior infarct are no longer Present T wave inversion no longer evident in Anterior leads QT has shortened Referred By: Rahul Guevara Electronically Signed By:Michi Shepard
[2021-09-13] MEDS: Levothyroxine Sodium 100 MCG/5 ML VIAL IVPUSH (05:31)
[2021-09-13 06:20] LABS: Mean Platelet Volume 11.2 fL (9.4-12.3); NRBC Pct Auto 0.3 /100WBC (0.0-0.2); PLT CLUMP 1; Red Cell Distribution Width 16.2 % (11.0-16.0)
[2021-09-13 06:22] LABS: Hematocrit 45.9 % (37.0-47.0); Hemoglobin 14.9 g/dl (12.0-16.0); Mean Corpuscular HGB Conc 32.5 g/dl (31.0-35.0); Mean Corpuscular Hemoglobin 31.6 pg (27.0-33.0); Mean Corpuscular Volume 97.5 fL (80.0-98.0); Red Blood Count 4.71 X10*6/uL (4.20-5.50)
[2021-09-13] MEDS: Nicotine 21 MG PATCH.TD24 TRANSDERMA (06:29)
[2021-09-13 06:35] LABS: Platelet Count 101 X10*3/uL (160-400); White Blood Count 7.7 X10*3/uL (4.8-10.8)
[2021-09-13 06:50] LABS: Anion Gap 12 (12-20); Blood Urea Nitrogen 13 mg/dL (9-16); Calcium 8.9 mg/dL (8.4-10.2); Carbon Dioxide 33 mmol/L (22-29); Chloride 96 mmol/L (96-108); Estimated Glomerular Filt Rate 39; Glucose Fasting 81 mg/dL (60-99); Potassium 3.4 mmol/L (3.3-5.1); Sodium 138 mmol/L (135-145)
[2021-09-13] MEDS: 0.9 % Sodium Chloride Flush 3 ML SYRINGE IVFLUSH ×2 (11:36→15:23)
--- NOTE | 2021-09-13 14:24 | MHC.CM.PN ---
per rounds dc plan pending physical therapy chloe pt saw pt today recommendation was tbd cm will follow
--- NOTE | 2021-09-13 14:36 | P.PNIM_ITS ---
Subjective Subjective Date of Service: 09/13/21 Interval History: cc: Improved right flank pain reporting wheezing interval history: more alert, pain improved in her abdomen Moving around the room with improved shortness of breath Review of Systems No fever, chills but reports generalized weakness No chest pain, palpitation No shortness of breath or coughing but has wheezing improved abdominal pain, no nausea or vomiting No urinary symptoms No any rash or wounds Cardiovascular Cardiovascular: Reports no additional cardiovascular complaints Respiratory Respiratory: Reports no additional respiratory complaints Physical Exam Vital Signs: Vital Signs: Last Vital Signs Temp 97.8 F 09/13/21 11:52 Pulse 61 09/13/21 12:07 Resp 18 09/13/21 11:52 BP 118/65 09/13/21 12:07 Pulse Ox 92 09/13/21 12:07 BMI result Body Mass Index 51.4 Const: Other: Constitutional : Alert, interactive, seems slow in responses,, not in distress Neck : Normal inspection, Supple Cardiovascular : RRR, no JVP, trace bilateral lower extremity edema Respiratory : fair bilateral air entry, no crackles, bilateral scattered expiratory wheezing Gastrointestinal: soft, lax, Normal bowel sounds, Non tender Skin : Warm, Dry Neurological : Alert & oriented x3, No focal deficit , CN 2-12 within normal Objective Data Active Medications Acetaminophen (Acetaminophen 325 Mg Tablet) 650 mg PO Q6H PRN PRN Reason: Pain, Mild (Pain Scale 1-3) Last Admin: 09/12/21 20:41 Dose: 650 mg Documented by: MARLEEN Albuterol Sulfate (Albuterol Sulfate 90 Mcg 8 Gm Inhaler) 2 puff INHALE Q6H PRN PRN Reason: bronchospasm Albuterol Sulfate (Albuterol Sulfate (0.083%) 2.5 Mg/3 Ml Vial.Neb) 2.5 mg INHALE TID PRN PRN Reason: bronchospasm Albuterol/Ipratropium (Albuterol/Iprat 2.5/0.5mg 3 Ml Ampul.Neb) 3 ml INHALE RQ6H WHILE AWAKE [facility] Aspirin (Aspirin Enteric Coated 81 Mg Tablet.) 81 mg PO DAILY [facility] Last Admin: 09/12/21 07:43 Dose: 81 mg Documented by: SHINE Atorvastatin Calcium (Atorvastatin Calcium 40 Mg Tablet) 40 mg PO BEDTIME [facility] Last Admin: 09/12/21 20:36 Dose: 40 mg Documented by: MARLEEN Furosemide (Furosemide 20 Mg Tablet) 20 mg PO Q2D PRN; Protocol PRN Reason: edema Levothyroxine Sodium (Levothyroxine Sodium 100 Mcg/5 Ml Vial) 100 mcg IVPUSH DAILY@0630 [facility] Last Admin: 09/13/21 05:31 Dose: 100 mcg Documented by: ROSE Nicotine (Nicotine 21 Mg Patch.Td24) 21 mg TRANSDERMA DAILY [facility] Last Admin: 09/13/21 06:29 Dose: 21 mg Documented by: ROSE Pharmacy Consult (Consult Rx Perform Med Rec) 1 each MISCELLANE ONCE PRN PRN Reason: Consult order Sodium Chloride (0.9 % Sodium Chloride Flush 3 Ml Syringe) 3 ml IVFLUSH QSHIFT [facility] Last Admin: 09/13/21 11:36 Dose: 3 ml Documented by: GRETA Labs CBC & Chem 7: 09/13/21 06:00 09/13/21 06:00 Labs: Laboratory Results - last 24 hr 09/13/21 09/13/21 06:00 06:00 MCV 97.5 MCH 31.6 MCHC 32.5 RDW 16.2 H Plt Count 101 L MPV 11.2 Absolute Nucleated RBC 0.020 H Nucleated RBC % (auto) 0.3 H Anion Gap 12 Estim Creat Clear Calc 53.0 Estimated GFR 39 Fasting Glucose 81 Calcium 8.9 Imaging MRI - abdomen: Radiologist's impression: Impressions Abdomen MRI 09/12/21 17:48 IMPRESSION: Very limited exam due to motion. New 4.2 x 4.7 x 4.4 cm right suprarenal mass probably adrenal in origin. Slight asymmetric fat stranding in the right perinephric fat and small amount of fluid in the posterior pararenal fascia. This may represent right adrenal hemorrhage. Differential would include a complex cyst. This is a new finding from previous exams. Follow-up CT scan may be helpful. Fatty infiltration of the liver. Microbiology Microbiology Results: Microbiology 09/11/21 07:41 Blood Culture - Preliminary Blood - Venous No growth after 48 hours. 09/11/21 05:45 Blood Culture - Preliminary Blood - Venous No growth after 48 hours. Assessment and Plan (1) Renal mass: Status: Acute (2) MAXIMO (obstructive sleep apnea): Status: Acute (3) Chronic diastolic (congestive) heart failure: Status: Acute (4) COPD (chronic obstructive pulmonary disease): Status: Acute Plan 65F presented with abd pain, found to be severly hypothyroid abd pain improving likely due to right renal mass concerning for malignancy MRI showed 4.5 by for cm mass with possible hemorrhage. Urology reported evaluating the image with Radiology and both think it is an old bleed Hold aspirin and Lovenox pain control To repeat CT scan in 3 months copd exacerbation start IV steroids today NPO tomorrow Duo nebs ATC and p.r.n. Wean oxygen down as tolerated hypothryoid coma complicated by metabolic encephalopathy, sinus bradycardia, hypothermia synthroid 100mcg iv daily for several days much improved likely needs higher than 25mcg daily at baseline, roommate does not think she was taking, but patient insists she was monitor tele To discuss with Endocrinology morbid obesity multifactorial, low rufus diet treat hypothyroid NAFLD weight loss CAD asa, statin MS outpatient neuro follow up chronic diastolic chf lasix hld statin dvt prophylaxis - lovenox full code reason for continued hospitalization: still bradycardic from hypothyroid requriing tele and iv synthroid, Evaluation for possible hemorrhage in adrenal mass, treatment for COPD exacerbation given high chance of decompensation. Quality Stroke Does the patient have a stroke diagnosis?: No VTE Prior VTE?: No VTE Risk Level:: Medical - moderate - high VTE Device Contraindication: Treatment Not Indicated VTE Drug Contraindication: N/A - Med Ordered
[2021-09-13] MEDS: Albuterol/Iprat 2.5/0.5MG 3 ML AMPUL.NEB INHALE ×2 (14:42→18:54)
[2021-09-13] MEDS: methylPREDNISolone Sod Succ 125 MG/2 ML VIAL 60 MG IVPUSH (15:22)
--- NOTE | 2021-09-13 15:56 | PM.HEMONCCN ---
Subjective - Subjective Chief complaint: none reported Consult date: 09/13/21 Requesting Physician: Dr. Guevara Primary Care Provider: Avelina Mclaughlin MD HPI - Consult Narrative Reason for consult: Right adrenal mass/hemorrhage Narrative: Rena Cancino is a 65 year old female who has been admitted for abdominal pain and myxedema coma who was noted to have right suprarenal mass associated with hemorrhage. Patient is a poor historian but as per chart review, patient has been noncompliant with her medications and has not been taking her Synthroid. She was found to be lethargic, hypothermic and bradycardic. She is doing better now since initiation of IV Synthroid. At this time she denies any flank pain or abdominal pain and offers no complaints. Review of Systems - Constitutional Reports as per HPI, Reports fatigue, Reports malaise, Reports weight gain - Neurologic Reports no additional neurologic complaints, Denies dizziness, Denies sensory deficit PMFSH Medical History: Medical History (Last Reviewed 09/13/21 @ 12:08 by Tonya Brown, PT) Atherosclerotic cardiovascular disease Chronic diastolic (congestive) heart failure COPD (chronic obstructive pulmonary disease) Dyslipidemia Essential hypertension Fatty liver History of heart attack Morbid obesity Multiple sclerosis MAXIMO (obstructive sleep apnea) Family History: Family History (Last Reviewed 09/11/21 @ 09:27 by Mark Lay MD) Father CAD (coronary artery disease) Mother No problems noted. Brother CAD (coronary artery disease) Surgical History: Surgical History (Last Reviewed 09/13/21 @ 12:08 by Tonya Brown, PT) History of cholecystectomy History of heart artery stent Social History: Social History (Last Reviewed 09/11/21 @ 09:27 by Mark Lay MD) Living Situation History: Household Members: Other Household Members Other:: lives at friends house Housing: House Tobacco History: Patient Tobacco Use Status: Current everyday Tobacco Cigarette Packs Per Day: 1 Cigarettes Per Day: 20.0 e-Cigarette/Vaping Use: Never Used Second Hand Smoke Exposure: No Substance Use History: Substance Use Type: Crack/Cocaine Occupation Assessmet: service: No Current occupational status: retired Current occupational status: disabled Home Medications and Allergies Current Medications: Current Medications Acetaminophen (Acetaminophen 325 Mg Tablet) 650 mg PO Q6H PRN PRN Reason: Pain, Mild (Pain Scale 1-3) Last Admin: 09/12/21 20:41 Dose: 650 mg Documented by: Albuterol Sulfate (Albuterol Sulfate 90 Mcg 8 Gm Inhaler) 2 puff INHALE Q6H PRN PRN Reason: bronchospasm Albuterol Sulfate (Albuterol Sulfate (0.083%) 2.5 Mg/3 Ml Vial.Neb) 2.5 mg INHALE TID PRN PRN Reason: bronchospasm Albuterol/Ipratropium (Albuterol/Iprat 2.5/0.5mg 3 Ml Ampul.Neb) 3 ml INHALE RQ6H WHILE AWAKE [facility] Last Admin: 09/13/21 14:42 Dose: 3 ml Documented by: Aspirin (Aspirin Enteric Coated 81 Mg Tablet.) 81 mg PO DAILY [facility] Last Admin: 09/12/21 07:43 Dose: 81 mg Documented by: Atorvastatin Calcium (Atorvastatin Calcium 40 Mg Tablet) 40 mg PO BEDTIME [facility] Last Admin: 09/12/21 20:36 Dose: 40 mg Documented by: Furosemide (Furosemide 20 Mg Tablet) 20 mg PO Q2D PRN; Protocol PRN Reason: edema Levothyroxine Sodium (Levothyroxine Sodium 100 Mcg/5 Ml Vial) 100 mcg IVPUSH DAILY@0630 [facility] Last Admin: 09/13/21 05:31 Dose: 100 mcg Documented by: Nicotine (Nicotine 21 Mg Patch.Td24) 21 mg TRANSDERMA DAILY [facility] Last Admin: 09/13/21 06:29 Dose: 21 mg Documented by: Pharmacy Consult (Consult Rx Perform Med Rec) 1 each MISCELLANE ONCE PRN PRN Reason: Consult order Prednisone (Prednisone 20 Mg Tablet) 40 mg PO DAILY [facility] Sodium Chloride (0.9 % Sodium Chloride Flush 3 Ml Syringe) 3 ml IVFLUSH QSHIFT [facility] Last Admin: 09/13/21 15:23 Dose: 3 ml Documented by: Home Medications Medication Instructions Recorded Confirmed Type peginterferon beta-1a 125 mcg/0.5 125 mcg SUBCUT Q28D 09/11/21 09/11/21 History mL subcutaneous pen injector (Plegridy) Allergies Allergy/AdvReac Type Severity Reaction Status Date / Time dimethyl fumarate [Tecfidera] Allergy Intermediate hives Verified 09/11/21 05:09 Plegridy Allergy Intermediate Hives Uncoded 09/11/21 05:09 Physical Exam Vital signs: Vital Signs Temp 98.0 F 09/13/21 15:33 Pulse 61 09/13/21 15:33 Resp 19 09/13/21 15:33 BP 130/72 09/13/21 15:33 Pulse Ox 96 09/13/21 15:33 Intake & Output 09/12/21 09/13/21 09/13/21 18:59 06:59 18:59 Intake Total 100 / 100 600 / 600 Output Total 0 / 0 500 / 500 Balance 100 / 100 100 / 100 Urine Output (Average ml/kg/hr) 0.00 0.33 Intake: Intake, Oral Amount 100 / 100 600 / 600 Output: Output, Urine Amount 0 / 0 500 / 500 Other: Breakfast % Eaten 50% 100% Lunch % Eaten 75% 100% Number of Unmeasured Voids 1 Number of Bowel Movements 1 Urine Bathroom Bathroom Urine Color Yellow Stool Bathroom Bathroom Stool Amount Large Stool Color Brown Stool Consistency Loose Weight 127.6 kg - Constitutional Present: no acute distress, morbidly obese - Routine HEENT Exam Eye: Present: periorbital swelling - Routine Respiratory Exam Present: prolonged expiratory phase, rhonchi - Routine Cardiovascular Exam Cardiovascular: Present: RRR, S1, S2 - Routine Abdominal Exam Present: soft - Routine Extremities Exam Present: pedal edema - Routine Skin Exam Present: dry Hem/Onc Consult Result - Labs CBC & Chem 7: 09/13/21 06:00 09/13/21 06:00 Labs: Short CBC 09/13/21 Range/Units 06:00 WBC 7.7 (4.8-10.8) X10*3/uL Hgb 14.9 (12.0-16.0) g/dl Hct 45.9 (37.0-47.0) % Plt Count 101 L (160-400) X10*3/uL BMP 09/13/21 06:00 Sodium 138 Potassium 3.4 Chloride 96 Carbon Dioxide 33 H BUN 13 Creatinine 1.37 Calcium 8.9 Assessment and Plan Patient Active problem list reviewed?: Yes (1) Adrenal abnormality Status: Acute Assessment and plan: 1. This is a 65-year-old woman admitted for myxedema coma and noted to have right adrenal abnormality on imaging. MRI abdomen with and without contrast performed 09/12/21 revealed a right suprarenal 4.2 x 4.7 x 4.4 cm lesion read as probably add renal in origin. This could represent right adrenal hemorrhage or a complex cyst. Patient has been taken off aspirin and Lovenox. Her H&H is stable. She reports no significant abdominal or flank pain. She denies any past history of bleeding disorder or coagulopathy. Her PTT is elevated at 50 seconds, I would repeat this and do mixing study if indicated. I agree with repeating CT scan in a few months to reassess. I thank you for this consultation. - Time Spent With Patient Time Spent with Patient (in minutes): 10
--- NOTE | 2021-09-13 16:40 | P.CNUR_ITS ---
History of Present Illness Consult details Consult date: 09/13/21 Narrative: 65-year-old female who presented with increasing lethargy Had been noncompliant with thyroid medication Associated flank pain Imaging was performed which showed question of renal hemorrhage versus cyst MRI discussed with radiology Suggestive of adrenal hemorrhage of unknown duration Had previously been on combination Lovenox and aspirin which has now been held Would recommend repeat CT imaging in 3 months for resolution May need medical follow-up for hormone adjustment Review of Systems Constitutional: Constitutional: Reports as per HPI and Reports no additional constitutional complaints Cardiovascular: Cardiovascular: Reports as per HPI and Reports no additional cardiovascular complaints Respiratory: Respiratory: Reports as per HPI and Reports no additional respiratory complaints Gastrointestinal: Gastrointestinal: Reports as per HPI and Reports no additional gastrointestinal complaints Genitourinary: Genitourinary: Reports as per HPI Musculoskeletal: Musculoskeletal: Reports no additional musculoskeletal co mplaints and Reports as per HPI Neurologic: Reports system reviewed and no additional complaints, except as documented and Reports as per HPI [facility] Past Medical History Medical History Atherosclerotic cardiovascular disease Chronic diastolic (congestive) heart failure COPD (chronic obstructive pulmonary disease) Dyslipidemia Essential hypertension Fatty liver History of heart attack Morbid obesity Multiple sclerosis MAXIMO (obstructive sleep apnea) Family History Family History Father CAD (coronary artery disease) Mother No problems noted. Brother CAD (coronary artery disease) Surgical History Surgical History History of cholecystectomy History of heart artery stent Social History Social History Household Members: Other Household Members Other:: lives at friends house Housing: House Alcohol intake: never Patient Tobacco Use Status: Current everyday Tobacco user Cigarette Packs Per Day: 1 e-Cigarette/Vaping Use: Never Used Second Hand Smoke Exposure: No Substance Use Type: Crack/Cocaine service: No Current occupational status: retired and disabled Cognitive needs: No Hearing needs: No Vision needs: No Meds Allergies Allergy/AdvReac Type Severity Reaction Status Date / Time dimethyl fumarate [Tecfidera] Allergy Intermediate hives Verified 09/11/21 05:09 Plegridy Allergy Intermediate Hives Uncoded 09/11/21 05:09 Active Medications: Current Medications Acetaminophen (Acetaminophen 325 Mg Tablet) 650 mg PO Q6H PRN PRN Reason: Pain, Mild (Pain Scale 1-3) Last Admin: 09/12/21 20:41 Dose: 650 mg Documented by: Albuterol Sulfate (Albuterol Sulfate 90 Mcg 8 Gm Inhaler) 2 puff INHALE Q6H PRN PRN Reason: bronchospasm Albuterol Sulfate (Albuterol Sulfate (0.083%) 2.5 Mg/3 Ml Vial.Neb) 2.5 mg INHALE TID PRN PRN Reason: bronchospasm Albuterol/Ipratropium (Albuterol/Iprat 2.5/0.5mg 3 Ml Ampul.Neb) 3 ml INHALE RQ6H WHILE AWAKE [facility] Last Admin: 09/13/21 14:42 Dose: 3 ml Documented by: Aspirin (Aspirin Enteric Coated 81 Mg Tablet.) 81 mg PO DAILY [facility] Last Admin: 09/12/21 07:43 Dose: 81 mg Documented by: Atorvastatin Calcium (Atorvastatin Calcium 40 Mg Tablet) 40 mg PO BEDTIME [facility] Last Admin: 09/12/21 20:36 Dose: 40 mg Documented by: Furosemide (Furosemide 20 Mg Tablet) 20 mg PO Q2D PRN; Protocol PRN Reason: edema Levothyroxine Sodium (Levothyroxine Sodium 100 Mcg/5 Ml Vial) 100 mcg IVPUSH DAILY@0630 [facility] Last Admin: 09/13/21 05:31 Dose: 100 mcg Documented by: Nicotine (Nicotine 21 Mg Patch.Td24) 21 mg TRANSDERMA DAILY [facility] Last Admin: 09/13/21 06:29 Dose: 21 mg Documented by: Pharmacy Consult (Consult Rx Perform Med Rec) 1 each MISCELLANE ONCE PRN PRN Reason: Consult order Prednisone (Prednisone 20 Mg Tablet) 40 mg PO DAILY [facility] Sodium Chloride (0.9 % Sodium Chloride Flush 3 Ml Syringe) 3 ml IVFLUSH QSHIFT [facility] Last Admin: 09/13/21 15:23 Dose: 3 ml Documented by: Home Medications Medication Instructions Recorded Confirmed Last Taken Type peginterferon beta-1a 125 mcg/0.5 125 mcg SUBCUT Q28D 09/11/21 09/11/21 Unknown History mL subcutaneous pen injector (Plegridy) Physical Exam Vital Signs: Vital Signs: Last Vital Signs Temp 98.0 F 09/13/21 15:33 Pulse 61 09/13/21 15:33 Resp 19 09/13/21 15:33 BP 130/72 09/13/21 15:33 Pulse Ox 96 09/13/21 15:33 BMI result Body Mass Index 51.4 Const: General: cooperative, healthy appearing, comfortable and no acute distress Orientation/consciousness: patient oriented x3 HEENT: Face and sinus: Yes normal facial exam Mouth: moist mucous membranes Neck: Neck: Yes normal visual inspection, Yes full ROM and Yes trachea midline Chest: Chest palpation & inspection: normal inspection of the chest Resp: Effort & Inspection: normal respiratory effort, able to speak in complete sentences and no respiratory distress GI: Inspection: Yes normal to inspection Back/Spine/Pelvis: Cervical Spine: normal cervical lordosis Thoracic/Lumbar Spine: thoracic and lumbar spine normal to inspection Skin: General skin exam: no rashes or lesions noted Neuro: General: patient oriented x3, tone normal and moves all extremities Extrem: General: Yes normal to inspection and Yes capillary refill normal Results Labs Result diagrams: 09/13/21 06:00 09/13/21 06:00 Labs: Abnormal lab results 09/13/21 09/13/21 Range/Units 06:00 06:00 RDW 16.2 H (11.0-16.0) % Plt Count 101 L (160-400) X10*3/uL Absolute Nucleated RBC 0.020 H (0.0-0.012) X10*3/uL Nucleated RBC % (auto) 0.3 H (0.0-0.2) /100WBC Carbon Dioxide 33 H (22-29) mmol/L Short CBC 09/13/21 Range/Units 06:00 WBC 7.7 (4.8-10.8) X10*3/uL Hgb 14.9 (12.0-16.0) g/dl Hct 45.9 (37.0-47.0) % Plt Count 101 L (160-400) X10*3/uL BMP 09/13/21 06:00 Sodium 138 Potassium 3.4 Chloride 96 Carbon Dioxide 33 H BUN 13 Creatinine 1.37 Calcium 8.9 Urine 09/11/21 Range/Units 07:57 Urine Color YELLOW Urine Appearance CLEAR Urine pH 7.0 (5.0-8.0) Ur Specific [place] 1.020 (1.005-1.025) Urine Protein 2+ H (NEG-TRACE) MG/DL Urine Glucose (UA) NEG (NEG) MG/DL All other labs normal. Assessment and Plan (1) Adrenal hemorrhage: Status: Acute Plan Follow-up imaging 3 months Procedures Date of Service Date of Service: 09/13/21
[2021-09-13] MEDS: Atorvastatin Calcium 40 MG TABLET PO (20:06)
[2021-09-14] VITALS (7 sets, daily range): BP systolic 135–172; BP diastolic 67–90; PULSE 53–94; RESP 16–23; TEMP 36.4–36.7; O2SAT 64–95
[2021-09-14] MEDS: 0.9 % Sodium Chloride Flush 3 ML SYRINGE IVFLUSH ×2 (00:22→08:47)
[2021-09-14] MEDS: Levothyroxine Sodium 100 MCG/5 ML VIAL IVPUSH (05:52)
[2021-09-14] MEDS: Albuterol/Iprat 2.5/0.5MG 3 ML AMPUL.NEB INHALE ×2 (07:22→13:35)
[2021-09-14 07:28] LABS: Hematocrit 45.7 % (37.0-47.0); Mean Corpuscular HGB Conc 32.8 g/dl (31.0-35.0); Mean Corpuscular Hemoglobin 31.6 pg (27.0-33.0); Mean Corpuscular Volume 96.2 fL (80.0-98.0); Mean Platelet Volume 11.5 fL (9.4-12.3); Platelet Count 105 X10*3/uL (160-400); Red Blood Count 4.75 X10*6/uL (4.20-5.50); Red Cell Distribution Width 15.8 % (11.0-16.0); White Blood Count 9.4 X10*3/uL (4.8-10.8)
[2021-09-14 07:34] LABS: Anion Gap 17 (12-20); Blood Urea Nitrogen 12 mg/dL (9-16); Calcium 9.5 mg/dL (8.4-10.2); Carbon Dioxide 32 mmol/L (22-29); Chloride 96 mmol/L (96-108); Creatinine Clr Calc Pharmacy 58.7; Estimated Glomerular Filt Rate 44; Glucose Random 96 mg/dL (60-115); Potassium 3.7 mmol/L (3.3-5.1); Sodium 141 mmol/L (135-145)
[2021-09-14 07:53] LABS: Thyroid Stimulating Hormone 31.84 uIU/mL (0.32-4.0)
[2021-09-14] MEDS: predniSONE 20 MG TABLET 40 MG PO (08:38)
[2021-09-14] MEDS: Nicotine 21 MG PATCH.TD24 TRANSDERMA (08:38)
--- NOTE | 2021-09-14 12:18 | PM.DS ---
DS: Providers Provider Date of Service: 09/14/21 Date of admission: 09/11/21 09:17 Primary care physician: Avelina Mclaughlin MD Consults: 09/13/21 08:18 Consult to Hematology / Oncology Routine Consulting Provider: Alejandrina Mtz Reason for consultation: Right Adrenal mass, Consult to Urology Routine Consulting Provider: Frank Kumar Reason for consultation: Rt renal mass with question bleeding for your kind eval. DS: Diagnosis Discharge Diagnosis (1) Adrenal hemorrhage: Status: Acute (2) Acute respiratory failure with hypoxia: Status: Acute (3) Adrenal abnormality: Status: Acute (4) MAXIMO (obstructive sleep apnea): Status: Acute (5) COPD exacerbation: Status: Acute (6) Hypothyroid coma: Status: Acute (7) Smoking: Status: Acute DS: Summary Hospital Course Hospital Course: Admission note HPI 65F presented with abd pain for one day. history taken from roomate, as patient is currently obtunded. she states patient has been progressively more lethargic and sleepy over the last few months, she does not follow with physicians and questions her medication compliance. patient does not use CPAP for MAXIMO. she reports weight gain and abdominal and lower extremity swelling. patient had been complaining of feeling sluggish and cold. she has known hypothyroid and is on 25mcg daily at home, but unclear if taking. in ED found to be hypothermic, bradycardic, lethargic. TSH 26.42, free t4 0.58. Hospital course The patient was admitted to the hospital for evaluation of altered mentation and metabolic encephalopathy, sinus bradycardia and hypothermia which all were believed to be secondary to hypothyroid coma as the patient reported taking her thyroid pill along with the rest of her medications while her roommate does not thing she was even taking them. Her TSH was found around 26 with low T4. Started on IV levothyroxine with good response over the course of hospital stay as she became more alert, oriented and was able to participate with physical therapy sessions who recommended home PT. the case discussed with police communications dispatcher Dr. Glasgow who recommended the patient to be discharged on a higher dose of levothyroxine of 100 mcg and to follow-up with him in the office as referral was placed at the day of discharge. The patient also complained of abdominal pain which was evaluated by an ultrasound showing suprarenal mass. MRI was done confirming the findings showing 4.5x4 cm mass with possible hemorrhage. Images reviewed with Radiology and Urology who suggested an old bleeding and to follow-up in 3 months for repeat images and to hold anticoagulation. The mass was evaluated by oncologist who believe it could be right adrenal hemorrhage or complex cyst that will need repeat imaging in few months to reassess. Endocrinology would like to evaluate her in the office for hormonal studies related to this adrenal gland mass. She was treated for COPD exacerbation associated with acute hypoxic respiratory failure with oxygen supplement, steroids and nebulizers with good response. Evaluated for home O2 which she qualified for as her oxygen level remains below 90. CXR showed hypoinflated lungs likely related to morbid obesity and body habitus. Started on incentive spirometry. Prescribed nicotine patches advised to lose weight. Start levothyroxine 100 mcg daily, take the medication 1st thing in the morning and do not eat or drink for the next hour. Continue prednisone for the next 4 days Quit smoking, use nicotine patches as prescribed To wean oxygen down as needed at home. Use incentive spirometry. To follow-up with Endocrinology after calling for an appointment to follow-up with PCP as planned. Time Spent with Patient Time attestation: Total time spent providing and/or coordinating discharge services: Discharge coordination time: Greater than 30 minutes Quality: Safe Use of Opioids Does Pt have an Active Cancer Diagnosis on the Problem List?: No Quality: Stroke Does the patient have a stroke diagnosis?: No Physical Exam Vital Signs: Vital Signs: Last Vital Signs Temp 98.0 F 09/14/21 11:55 Pulse 74 09/14/21 11:55 Resp 23 H 09/14/21 11:55 BP 160/90 H 09/14/21 11:55 Pulse Ox 93 09/14/21 11:55 BMI result Body Mass Index 51.4 Const: Other: Constitutional : Alert, interactive, better and quicker responses, not in distress, morbidly obese Neck : Normal inspection, Supple Cardiovascular : RRR, no JVP, no bilateral lower extremity edema Respiratory : fair bilateral air entry, no crackles, improved scattered expiratory wheezing Gastrointestinal: soft, lax, Normal bowel sounds, Non tender Skin : Warm, Dry Neurological : Alert & oriented x3, No focal deficit , CN 2-12 within normal DS: Data Data Completed and Pending Labs on day of discharge: Laboratory Results - last 24 hr 09/14/21 09/14/21 09/14/21 06:11 06:11 06:11 WBC 9.4 RBC 4.75 Hgb 15.0 Hct 45.7 MCV 96.2 MCH 31.6 MCHC 32.8 RDW 15.8 Plt Count 105 L MPV 11.5 Absolute Nucleated RBC 0.000 Nucleated RBC % (auto) 0.0 Sodium 141 Potassium 3.7 Chloride 96 Carbon Dioxide 32 H Anion Gap 17 BUN 12 Creatinine 1.24 Estim Creat Clear Calc 58.7 Estimated GFR 44 Random Glucose 96 Calcium 9.5 D TSH 31.84 H Preliminary micro results at discharge 09/11/21 07:41 Blood Culture - Preliminary Blood - Venous No growth after 48 hours. 09/11/21 05:45 Blood Culture - Preliminary Blood - Venous No growth after 48 hours. Imaging MRI - abdomen: Radiologist's impression: ITS Impressions Chest X-Ray 09/11/21 06:20 IMPRESSION: Low lung volumes; otherwise, no acute cardiopulmonary abnormalities identified. Abdomen Ultrasound 09/11/21 11:00 IMPRESSION: Echogenic heterogeneous liver echotexture probably representing fatty infiltration with areas of focal fatty sparing. 3.9 x 4.5 x 4.2 cm solid hypoechoic lesion in the upper pole of the right kidney worrisome for a mass. Follow-up CT or MRI kidneys with and without contrast recommended. Slightly dilated common bile duct. This may be normal postcholecystectomy. Limited visualization of the pancreas. Abdomen MRI 09/12/21 17:48 IMPRESSION: Very limited exam due to motion. New 4.2 x 4.7 x 4.4 cm right suprarenal mass probably adrenal in origin. Slight asymmetric fat stranding in the right perinephric fat and small amount of fluid in the posterior pararenal fascia. This may represent right adrenal hemorrhage. Differential would include a complex cyst. This is a new finding from previous exams. Follow-up CT scan may be helpful. Fatty infiltration of the liver. Discharge Plan Discharge Patient Disposition: Home Health Service Discharge Diagnosis: Hypothyroid coma COPD exacerbation Adrenal gland cyst, hemorrhage Referrals: [facility] [Outside] - 1 Week Brent Glasgow MD [Physician] - 1 Week (Discussed regarding Myxedema coma, Suprarenal cyst\hemorrhage for your kind eval and recommendations ) Avelina Rdz MD [Primary Care Provider] - 1 Week Discharge Medications: New nicotine 21 mg/24 hr Patch 24 Hour 21 mg transdermal DAILY Qty: 28 0RF prednisone 20 mg Tablet 40 mg PO DAILY 4 Days Qty: 8 0RF levothyroxine 100 mcg capsule 100 mcg PO DAILY Qty: 30 0RF Continued albuterol sulfate [Ventolin HFA] 90 mcg/actuation HFA aerosol inhaler 2 puff inhalation Q6H PRN (Reason: bronchospasm) 30 Days Qty: 8.5 3RF (DME) incontinence pad, liner, disp Pad See Rx Instructions .ROUTE .MEDSUPPLY Qty: 80 11RF Rx Instructions: BRAND: FIT RIGHT atorvastatin 40 mg tablet 40 mg PO BEDTIME Qty: 90 3RF (DME) compr.stocking,knee,long,large Misc See Rx Instructions .Route Qty: 2 6RF Rx Instructions: moderate compression 20mmHG diclofenac sodium [Arthritis Pain (diclofenac)] 1 % gel 2 g topical QID PRN (Reason: pain) 30 Days Qty: 100 1RF Rx Instructions: apply to single elbow, wrist or hand; for hand includes palm/fingers/back of hand ibuprofen 800 mg tablet 800 mg PO Q8H PRN (Reason: pain) 30 Days Qty: 90 1RF gabapentin 400 mg capsule 400 mg PO TID 30 Days Qty: 90 1RF Plegridy 125 mcg/0.5 mL pen injector 125 mcg subcut Q28D 0RF furosemide [Lasix] 20 mg tablet 20 mg PO Q OTHER DAY PRN (Reason: edema) Qty: 14 0RF albuterol sulfate 2.5 mg /3 mL (0.083 %) solution for nebulization 2.5 mg inhalation TID PRN (Reason: bronchospasm) 30 Days Qty: 270 4RF Spiriva with HandiHaler 18 mcg capsule, w/inhalation device 1 cap inhalation DAILY 30 Days Qty: 3 2RF Rx Instructions: puncture 1 cap using device; one dose = 2 inhalations aspirin [Adult Low Dose Aspirin] 81 mg tablet,delayed release (DR/EC) 81 mg PO DAILY Qty: 90 3RF Discontinued levothyroxine 25 mcg tablet 25 mcg PO DAILY 90 Days Qty: 90 1RF Discharge Orders: Discharge Order (Routine); Ordered 09/14/21 Ordered By: Rahul Guevara Diet: advance to usual diet Activity on Discharge: As tolerated Stand Alone Forms: Patient Portal Discharge page Care Plan Goals: Read below Health Concerns: Read below Plan of Treatment: Follow-up with [facility] as outpatient within [address] Glasgow. Follow-up with your PCP as scheduled Assessment: You were evaluated in the hospital for altered mentation found to be in hypothyroid, with low level of your thyroid hormone. Treated with IV thyroid hormone with good response over the course of hospital stay as you were able to participate with physical therapy. You were treated with steroids and nebulizers for COPD exacerbation. Nicotine patches were used as well. Start levothyroxine 100 mcg daily, take the medication 1st thing in the morning and do not eat or drink for the next hour. Continue prednisone for the next 4 days Quit smoking, use nicotine patches as prescribed To wean your oxygen down as needed at home. Use incentive spirometry. Discharge Date/Time: 09/14/21 14:42
--- NOTE | 2021-09-14 12:37 | MHC.CM.PN ---
Patient has been medically cleared for dc to home with new VNA today. [facility] is the only accepting VNA and they have been notified of today's dc.Last IMM addressed on 09/12/21.
--- NOTE | 2021-09-14 12:40 | W.MHC.F2F ---
Service Date Service Date: 09/14/21 Encounter Date of encounter: 09/14/21 Reasons for Services Signs and symptoms assessed: physical deconditioning, hypoxia Hypothyroid coma: needs to learn when to take Levothyroxine Reason for custodial: medication treatment and teach disease management Reason for physical therapy: home safety and mobility and therapeutic exercises Homebound: Leaving the home is medically contraindicated at this time without the asist of a device and/or another person due th the listed conditions above and below. Reason homebound: unsteady gait / fall risk Certification: Based on the above findings, I certify that this patient is confined to the home and needs intermittent custodial care, physical therapy and/or speech therapy, or continues to need occupational therapy. The patient is under my care, and I have initiated the establishment of the plan of care. The patient will be followed by a physician who will periodically review the plan of care.
--- NOTE | 2021-09-14 13:25 | MHC.CM.PN ---
Per RN's request, NISHA spoke with Patient's HCP/Heather @ [phone]; Heather will provide transportation to home at 2:30 (message relayed to RN/ Idaina). Heather has also been notified that [facility] will provide services at home.
--- NOTE | 2021-09-14 13:31 | PC.NURSE ---
Per Dr Guevara - patient does not need outpatient MRI in discharge paper work. Order removed.
[2021-09-14 13:38] LABS: Partial Thromboplastin Time 48.3 SEC (24.1-38.0)
== END 2021-09-14 14:42 | disposition home health service (06) | DRG 80 ==
LOC: HO.ED 08:39 → HO.EDOVER 09:22 → HO.IMC 18:50
PROVIDERS: Admitting Provider Internal Medicine; Emergency Provider Emergency Medicine; PCP Internal Medicine; Visit Provider Student in an Organized Health Care Education/Training Program
DX: E03.5 Myxedema coma (principal); G93.41 Metabolic encephalopathy; Z68.43 Body mass index [BMI] 50.0-59.9, adult; J44.1 Chronic obstructive pulmonary disease with (acute) exacerbation; E27.49 Other adrenocortical insufficiency; R68.0 Hypothermia, not associated with low environmental temperature; I25.10 Atherosclerotic heart disease of native coronary artery without angina pectoris; E66.01 Morbid (severe) obesity due to excess calories; G35 Multiple sclerosis; E03.9 Hypothyroidism, unspecified; F17.210 Nicotine dependence, cigarettes, uncomplicated; E78.5 Hyperlipidemia, unspecified; K76.0 Fatty (change of) liver, not elsewhere classified; T38.1X6A Underdosing of thyroid hormones and substitutes, initial encounter; R00.1 Bradycardia, unspecified; Z71.6 Tobacco abuse counseling; Z20.822 Contact with and (suspected) exposure to COVID-19; Z88.8 Allergy status to other drugs, medicaments and biological substances; Z79.52 Long term (current) use of systemic steroids; Z79.82 Long term (current) use of aspirin; Z79.890 Hormone replacement therapy; Z79.899 Other long term (current) drug therapy
CPT/HCPCS: 0241U; 36415; 71045; 74183; 76705; 80048; 80053; 81001; 81003; 82803; 83605; 83690; 83735; 83880; 84439; 84443; 84484; 85025; 85027; 85610; 85730; 86704; 86706; 86803; 87040; 87340; 87502; 87635; 93005; 94640; 96361; 96374; 96375; 97110; 97116; 97162; 99285; A9585; J0461; J1650; J2930

== ENCOUNTER → 2021-10-27 14:29 | Outpatient (BNVA) | payer OTHER, SELFPAY | PROVIDERS: PCP Internal Medicine; Visit Provider Hospitalist | DX: J44.9 Chronic obstructive pulmonary disease, unspecified (principal); J96.10 Chronic respiratory failure, unspecified whether with hypoxia or hypercapnia; G47.33 Obstructive sleep apnea (adult) (pediatric); N28.89 Other specified disorders of kidney and ureter; F17.210 Nicotine dependence, cigarettes, uncomplicated | CPT/HCPCS: 99202 ==

== ENCOUNTER 2021-12-12 13:17 | Outpatient (REF) | payer OTHER, SELFPAY ==
--- NOTE | ~2021-12-12 | MR_ITS ---
EXAMINATION: MR BRAIN WITHOUT AND WITH CONTRAST CLINICAL INFORMATION: MS. New weakness in legs and speech difficulty. COMPARISON: 07/09/2019 MRI TECHNIQUE: Multiplanar, multisequence MRI of the brain was obtained before and after the intravenous administration of 10 mL Gadavist. FINDINGS: Since the previous exam, there is now evidence of a chronic left MCA territory infarct with associated parenchymal gliosis and volume loss in the left parasylvian region which involves the left superior temporal gyrus and left frontal operculum. DWI sequence demonstrates no restricted diffusion. Specifically, there is no evidence for acute or subacute cerebral ischemia or active demyelination. Gradient refocused imaging demonstrates no evidence for hemorrhage, hemosiderin staining or abnormal mineral deposition. Redemonstrated are the previously noted white matter lesions throughout both cerebral hemispheres, with a similar overall distribution and appearance compared to the previous exam with no abnormal enhancement, consistent with MS. There appears to have been mild progression of disease in the deep centrum semiovale bilaterally with more confluence of lesions in this region since the previous exam but no abnormal enhancement. No extra-axial fluid collections, significant space-occupying process or mass effect. The ventricular system is unchanged in appearance without hydrocephalus. There is diminished signal void in the intracranial left internal carotid artery, suggesting the possibility of stenosis or segmental occlusion. Recommend MRA to further assess. There are nonspecific small bilateral mastoid effusions, left more than right similar to the previous exam. MR/MR head/brain wo/w con IMPRESSION: 1. Mild progression of white matter lesions with no abnormal enhancement as described above, mainly involving the deep centrum semiovale bilaterally in the periventricular region. 2. Chronic left MCA territory infarct noted since the previous exam and suspicion for possible stenosis of the intracranial left internal carotid artery. Consider MRA to further assess. 3. No acute intracranial process.
== END 2021-12-12 13:18 | disposition home or self-care (01) ==
LOC: HO.MRI 13:17
PROVIDERS: Visit Provider Psychiatry & Neurology Neurology
DX: G35 Multiple sclerosis (principal)
CPT/HCPCS: 70553; A9585

== ENCOUNTER → 2021-12-19 12:50 | Outpatient (BNVA) | payer OTHER, SELFPAY | PROVIDERS: PCP Internal Medicine; Visit Provider Urology | DX: E27.49 Other adrenocortical insufficiency (principal) | CPT/HCPCS: 99212 ==

== ENCOUNTER 2022-01-24 13:46 | Outpatient (REF) | payer OTHER, SELFPAY ==
--- NOTE | 2022-01-24 14:01 | PFT_ITS ---
Forced vital capacity 49%, FEV1 56%, FEV1/FVC ratio is 87. OFV55-10 81% and MVV 46%. Post bronchodilator therapy, there is a significant increase in FVC, FEV1, and NHY88-99. Total lung capacity 86%. Residual volume 111%. Diffusion capacity 91% CONCLUSION: Lung volumes are normal, so there is no restrictive pulmonary disorder. Also diffusion capacity is normal. The findings are consistent with mild to moderate degree of obstructive airway disorder with significant response to bronchodilator therapy indicating asthma/COPD overlap syndrome. Clinical correlation is recommended. MD RAN Dubose/MODL / [id number]
== END 2022-01-24 13:47 | disposition home or self-care (01) ==
LOC: HO.RESP 13:46
PROVIDERS: PCP Internal Medicine; Visit Provider Hospitalist
DX: J44.9 Chronic obstructive pulmonary disease, unspecified (principal); G47.33 Obstructive sleep apnea (adult) (pediatric)
CPT/HCPCS: 94060; 94727; 94729

== ENCOUNTER → 2022-01-25 09:51 | Outpatient (BNVA) | payer OTHER, SELFPAY | PROVIDERS: PCP Internal Medicine; Visit Provider Hospitalist | DX: J44.9 Chronic obstructive pulmonary disease, unspecified (principal); J96.10 Chronic respiratory failure, unspecified whether with hypoxia or hypercapnia; G47.33 Obstructive sleep apnea (adult) (pediatric); N28.89 Other specified disorders of kidney and ureter; F17.210 Nicotine dependence, cigarettes, uncomplicated; Z79.899 Other long term (current) drug therapy | CPT/HCPCS: 94618; 99212 ==

== ENCOUNTER 2022-02-06 15:46 | Outpatient (REF) | payer OTHER, SELFPAY ==
[2022-02-06 17:15] LABS: Blood Urea Nitrogen 14 mg/dL (9-16); Estimated Glomerular Filt Rate > 60
[2022-02-06 17:33] LABS: TSH reflex Free T4 9.68 uIU/mL (0.32-4.0)
[2022-02-06 18:09] LABS: Free T4 (Free Thyroxine) 0.88 ng/dL (0.71-1.85)
[2022-02-08 10:22] LABS: Thyroglobulin Antibodies 262 IU/mL (< or = 1); Thyroid Peroxidase Antibodies 38 IU/mL (<9)
[2022-02-11 14:17] LABS: Vitamin D 25-OH, D2 <4 ng/mL; Vitamin D 25-OH, D3 9 ng/mL; Vitamin D 25-OH, Total 9 ng/mL (30-100)
== END 2022-02-06 15:47 | disposition home or self-care (01) ==
LOC: HO.LAB 15:46
PROVIDERS: Nurse Practitioner Family; Urology; PCP Internal Medicine; Visit Provider Internal Medicine
DX: E03.5 Myxedema coma (principal); E03.9 Hypothyroidism, unspecified; E27.49 Other adrenocortical insufficiency
CPT/HCPCS: 36415; 82306; 82565; 84439; 84443; 84520; 86376; 86800

== ENCOUNTER 2022-03-02 10:43 | Outpatient (REF) | payer OTHER, SELFPAY ==
--- NOTE | ~2022-03-02 | XR_ITS ---
EXAMINATION: XR knee LT 2V CLINICAL INFORMATION: Reason for Exam M17.12 - Unilateral primary osteoarthritis, left knee COMPARISON: Tibia and fibula radiographs 06/15/2021 TECHNIQUE: AP and lateral views of the knee FINDINGS: No acute fracture or dislocation. Moderate degenerative changes of the medial compartment with loss of joint space and a bony defect in the medial femoral condyle which may reflect an osteochondral defect, which could be better characterized with MR if warranted. Atherosclerotic vascular calcification. Small suprapatellar joint effusion. XR/XR knee LT 2V IMPRESSION: 1. Moderate degenerative changes of the medial compartment with loss of joint space and a bony defect in the medial femoral condyle which may reflect an osteochondral defect, which could be better characterized with MR if warranted. 2. Atherosclerotic vascular calcification. 3. Small suprapatellar joint effusion.
--- NOTE | ~2022-03-02 | CT_ITS ---
EXAMINATION: CT ABDOMEN WITHOUT AND WITH CONTRAST CLINICAL INFORMATION: Adrenal cortical insufficiency COMPARISON: Previous MRI of the abdomen September 2021, limited abdominal ultrasound September [address] of the abdomen and pelvis March 2015 TECHNIQUE: Contiguous axial thin section helical images of the abdomen were performed before and after the administration of oral contrast and 85 mL of Omnipaque 350 intravenous contrast. The data set was reformatted in the coronal and sagittal planes and reviewed on an independent workstation. This CT examination was performed using dose optimization techniques as appropriate, variously including the following: *Automated exposure control *Adjustment of mA and/or kV according to patient size (this includes techniques or standardized protocols for targeted exams where dose is matched to indication/reason for exam; i.e. extremities or head) *Use of iterative reconstruction technique DLP: 774 mGy-cm FINDINGS: LUNG BASES: Normal LIVER, GALLBLADDER, AND BILIARY TREE: The liver is normal. The gallbladder is been removed. There is no biliary duct dilatation. PANCREAS: Normal SPLEEN: Normal ADRENAL GLANDS AND KIDNEYS: There is a right adrenal lesion measuring 1.9 x 2.8 cm in dimension. This appears decreased in size from previous MRI September 2021 and is new from previous CT from 2014. Hounsfield units precontrast measure 35. Hounsfield units postcontrast measure 62. This is heterogeneous in attenuation on delayed postcontrast images with low-attenuation centrally and higher attenuation peripherally. Low-attenuation central area Hounsfield measure 45. Higher attenuation peripheral area Hounsfield measurement 70. The previously identified right perinephric fat stranding on previous MRI September 2021 is no longer seen. The kidneys are normal. BOWEL LOOPS: There is diverticulosis of the colon. Visualized bowel is otherwise unremarkable. LYMPH NODES: Normal. VASCULAR: Partially thrombosed aneurysm of the lower abdominal aorta measuring 3.5 x 3.6 cm. BONES: There are degenerative changes of the spine. CT/CT abdomen wo/w IV con IMPRESSION: 1.9 x 2.8 cm right adrenal lesion decreased in size from previous MRI September 2021 and new from previous CT from 2014. This is heterogeneous in attenuation on delayed postcontrast images. The previously identified area of adrenal and perinephric fat stranding on MRI September 2021 is no longer seen. This may represent resolving adrenal hemorrhage. Continued imaging follow-up of the adrenal glands in 6 months recommended. Partially thrombosed 3.5 x 3.6 cm abdominal aortic aneurysm. According to best practice criteria, ultrasound follow-up in one, 2, 3 and 5 years recommended. Diverticulosis of the colon. Fleischner guidelines were followed.
[2022-03-02] MEDS: iohexoL 350 MG/ML 100 ML INFUS..BTL IV (11:51)
== END 2022-03-02 10:44 | disposition home or self-care (01) ==
LOC: HO.CT 10:43
PROVIDERS: PCP Internal Medicine; Visit Provider Urology
DX: E27.49 Other adrenocortical insufficiency (principal); M17.12 Unilateral primary osteoarthritis, left knee
CPT/HCPCS: 73560; 74170; Q9967

== ENCOUNTER → 2022-03-09 14:42 | Outpatient (BNVA) | payer OTHER, SELFPAY | PROVIDERS: PCP Internal Medicine; Visit Provider Urology | DX: E27.8 Other specified disorders of adrenal gland (principal) | CPT/HCPCS: 99202 ==

== ENCOUNTER 2022-03-23 09:26 | Outpatient (REF) | payer OTHER, SELFPAY ==
--- NOTE | ~2022-03-23 | XR_ITS ---
EXAMINATION: XR BILATERAL KNEES CLINICAL INFORMATION: Knee pain. COMPARISON: Left knee 03/02/2022. TECHNIQUE: Single standing view of both knees with lateral and sunrise view of the left knee. FINDINGS: Standing view demonstrates minimal narrowing of the medial compartment on the right and moderate narrowing of the medial compartment on the left. Again seen is the sclerotic osteochondral lesion medial condyle on the left with some depression. Appearances are unchanged when compared to 03/02/2022. Trace left joint effusion is present. On the sunrise view, a small bony fragment is seen medially in the joint space which could represent a small free intra-articular osseous body possibly related to the osteochondral defect. Vascular calcifications are again seen. XR/XR knee LT 2V IMPRESSION: 1. Bilateral medial compartment narrowings, left greater than right. 2. Osteochondral lesion at the medial condyle of the left knee with question of a free intra-articular osseous body.
--- NOTE | ~2022-03-23 | XR_ITS ---
EXAMINATION: XR BILATERAL KNEES CLINICAL INFORMATION: Knee pain. COMPARISON: Left knee 03/02/2022. TECHNIQUE: Single standing view of both knees with lateral and sunrise view of the left knee. FINDINGS: Standing view demonstrates minimal narrowing of the medial compartment on the right and moderate narrowing of the medial compartment on the left. Again seen is the sclerotic osteochondral lesion medial condyle on the left with some depression. Appearances are unchanged when compared to 03/02/2022. Trace left joint effusion is present. On the sunrise view, a small bony fragment is seen medially in the joint space which could represent a small free intra-articular osseous body possibly related to the osteochondral defect. Vascular calcifications are again seen. XR/XR knee standing BI IMPRESSION: 1. Bilateral medial compartment narrowings, left greater than right. 2. Osteochondral lesion at the medial condyle of the left knee with question of a free intra-articular osseous body.
== END 2022-03-23 09:27 | disposition home or self-care (01) ==
LOC: HO.HOSX 09:26
PROVIDERS: Visit Provider Orthopaedic Surgery
DX: M25.562 Pain in left knee (principal); M17.12 Unilateral primary osteoarthritis, left knee; E66.01 Morbid (severe) obesity due to excess calories; Z68.41 Body mass index [BMI] 40.0-44.9, adult; F17.210 Nicotine dependence, cigarettes, uncomplicated
CPT/HCPCS: 20610; 73560; 73565; 99202; J1100

== ENCOUNTER → 2022-09-28 09:28 | Outpatient (BNVA) | payer OTHER, SELFPAY | PROVIDERS: PCP Internal Medicine; Visit Provider Hospitalist | DX: Z23 Encounter for immunization (principal); J96.10 Chronic respiratory failure, unspecified whether with hypoxia or hypercapnia; J44.9 Chronic obstructive pulmonary disease, unspecified; G47.33 Obstructive sleep apnea (adult) (pediatric); N28.89 Other specified disorders of kidney and ureter; F17.210 Nicotine dependence, cigarettes, uncomplicated | CPT/HCPCS: 90471; 90677; 99212 ==

== ENCOUNTER → 2022-10-17 13:20 | Outpatient (BNVA) | payer OTHER, SELFPAY | PROVIDERS: PCP Internal Medicine; Referring Provider Internal Medicine; Visit Provider Internal Medicine | DX: I25.10 Atherosclerotic heart disease of native coronary artery without angina pectoris (principal); I44.7 Left bundle-branch block, unspecified; E66.01 Morbid (severe) obesity due to excess calories; Z68.41 Body mass index [BMI] 40.0-44.9, adult; F17.210 Nicotine dependence, cigarettes, uncomplicated; I25.2 Old myocardial infarction | CPT/HCPCS: 93005; 99212 ==

== ENCOUNTER 2022-10-26 14:07 | Outpatient (REF) | payer OTHER, SELFPAY ==
--- NOTE | ~2022-10-26 | CT_ITS ---
EXAMINATION: CT CHEST SCREENING CLINICAL INFORMATION: Current smoker. 51 pack year history. COMPARISON: Previous chest x-ray September 2021 TECHNIQUE: Multidetector volumetric CT imaging of the chest is performed without contrast using low dose technique. Additional 2D coronal and sagittal reformatted images and axial 3D maximum intensity projection (MIP) images are generated on the CT workstation. This CT examination was performed using dose optimization techniques as appropriate, variously including the following: *Automated exposure control *Adjustment of mA and/or kV according to patient size (this includes techniques or standardized protocols for targeted exams where dose is matched to indication/reason for exam; i.e. extremities or head) *Use of iterative reconstruction technique DLP: 94 mGy-cm FINDINGS: LUNGS: Mild emphysema. Subsegmental atelectasis or scarring in the inferior segment of the lingula. The lungs are otherwise clear. No endobronchial or endotracheal lesion. MEDIASTINUM: Left superior mediastinal calcification question representing calcification in the inferior left lobe of thyroid gland. The mediastinum is otherwise normal. CORONARY ARTERY CALCIFICATION: Moderate to severe PLEURA: There is no pleural effusion. No pleural mass or thickening. AXILLA: Small axillary lymph nodes. No enlarged lymph nodes or chest wall mass. UPPER ABDOMEN: Unremarkable OSSEOUS STRUCTURES: Degenerative changes of the spine. CT/CT lung screening IMPRESSION: Mild emphysema. Calcified left thyroid nodule. Follow-up thyroid ultrasound recommended. moderate to severe coronary artery calcification. ASSESSMENT: Lung-RADS category 1: Negative RECOMMENDATION: Annual low-dose chest CT follow-up recommended
== END 2022-10-26 14:08 | disposition home or self-care (01) ==
LOC: HO.CT 14:07
PROVIDERS: PCP Internal Medicine; Visit Provider Physician Assistant Medical
DX: Z12.2 Encounter for screening for malignant neoplasm of respiratory organs (principal); F17.210 Nicotine dependence, cigarettes, uncomplicated
CPT/HCPCS: 71271

== ENCOUNTER → 2022-11-29 08:05 | Outpatient (REF) | payer OTHER, SELFPAY ==
--- NOTE | ~2022-11-29 | NM_ITS ---
Myocardial perfusion study Indication: Precordial chest pain to evaluate for myocardial ischemia Technique: The patient was brought in for a Lexiscan perfusion study on 11/11/2022. Patient performed low-level exercise and was injected 0.4 mg of Lexiscan intravenously. Within a minute of injection, 40 mCi of sestamibi was given intravenously. Images were obtained using the SPECT gamma camera interlaced with the gating device. Images were obtained in supine position. Resting perfusion study was performed on 12/07/2022. Patient was administered 40 mCi of sestamibi intravenously at rest. Images were then obtained in supine position. Images obtained with and without CT attenuation. Total DLP 169 mGy-cm. . Images were processed with the software and compared side to side in short axis, horizontal long axis and vertical long axis views. Findings: The stress perfusion study showed Non attenuated images show mildly reduced uptake in the anteroseptal area of the LV myocardium. Remainder of the LV myocardium is normally perfused. There is suggestion of left ventricle hypertrophy. Attenuation corrected images show mildly reduced uptake in the distal septum and the apex of the LV myocardium.. The gated study shows normal LV systolic function with visually estimated LVEF of grreater than 50%. LV cavity is normal in size. The gated study shows normal systolic wall thickening and contraction of segments. Resting study shows no change in perfusion pattern compared to stress perfusion study. Gating at rest reveals normal systolic wall motion with ejection fraction at 55%. The findings are consistent with no clear reversible defect suggestive of ischemia. Likely normal myocardial perfusion. NM/NM cardiolite stress test Impression: 1. Myocardial perfusion imaging study shows likely normal myocardial perfusion 2. Gated LVEF is 55% 3. Transient ischemic dilatation not present EKG is nondiagnostic for ischemia
--- NOTE | 2022-11-29 08:08 | CA_ITS ---
Transthoracic Echocardiogram Patient (Last, First, Middle): Rena Cancino A Gender: Female Date of : 1955 Age: 67 Procedure Date: 11/29/2022 Procedure Type: Transthoracic Echocardiogram Location: OP Height: 157.48 cm Weight: 111.13 kg BSA: 2.08 m2 Heart Rate: bpm BP: 165 / 104 mmHg [facility] Coordinator: ISAI Referring MD: Yeison Bowden MD Symptoms: I25.10 - Atherosclerotic heart disease of [place] coronary artery without... Study Quality: Fair Conclusions: - The left ventricular systolic function is low normal. The visually estimated ejection fraction is between 50-55%. - There is mild calcification of the aortic valve. - No obvious valvular pathology seen on this study. Findings Left Ventricle Normal left ventricular cavity size. There is mildly increased left ventricular wall thickness. The left ventricular systolic function is low normal. The visually estimated ejection fraction is between 50-55%. There is paradoxical septal motion consistent with a left bundle branch block. Evidence suggests grade I (mild) diastolic dysfunction. Right Ventricle Normal right ventricular cavity size and systolic function. Atria Both atria are normal in size. Aortic Valve There is a normal trileaflet aortic valve. There is mild calcification of the aortic valve. There is no aortic valve stenosis. There is trace (trivial) aortic valve regurgitation. Mitral Valve The mitral valve appears normal. There is no mitral valve regurgitation. There is no mitral valve stenosis. Pulmonic Valve The pulmonic valve is likely normal. Tricuspid Valve Normal tricuspid valve structure. There is trace tricuspid valve regurgitation. There is no evidence of pulmonary hypertension. Great Vessels The asc aorta is normal in size. Venous The inferior vena cava is normal in size and collapses greater than 50% with inspiration. Pericardium/Pleural There is no evidence of pericardial effusion. Prior Study Comparison No significant change compared to prior study dated: 03/30/2021. Recommendations, Care & Conclusions No obvious valvular pathology seen on this study. Measurements 2D Linear Measurements IVSd: 1.13 0.6-0.9/0.6-1.0 cm LVIDd: 4.44 3.9-5.3/4.2-5.9 cm LVIDd Index: 2.13 2.4-3.2/2.2-3.1 cm/m2 LVIDs: 3.82 2.0-3.6 cm LVPWd: 1.05 0.7-1.1 cm LV Mass: 210.69 67-162/88-224 g LV Mass Index: 101.29 43-95/49-115 g/m2 LVOT Diam: 2.00 3.0+(-)1.3 cm 2D Systolic Function EF 4C: 56.30 >55% EF 2C: 62.60 >55% EF BiP: 59.20 >55% Mitral Valve MV Pk E: 0.79 MV PK A: 1.03 MV Decel Time: 276.00 E/A: 0.80 E'Lateral: 4.35 E'Medial: 3.15 E/E' Med: 25.00 E/E' Lat: 18.10 PHT: 81.00 MVA PHT: 2.72 Decel [place]: 2.85 Aortic Valve AoV Pk Van: 1.59 AoV Mn Van: 1.13 AoV VTI: 0.34 AoV Pk Grad: 10.00 Aov Mn Grad: 6.00 REGINALD Cont.VTI: 2.20 LVOT LVOT Pk Van: 1.29 LVOT Mn Van: 0.78 LVOT VTI: 0.24 LVOT Pk Grad: 7.00 LVOT Mn Grad: 3.00 LVOT Diam: 2.00 LVOT Area: 3.14 Diastolic Function MV Pk E: 0.79 MV Pk A: 1.03 E/A: 0.80 E'Medial: 3.15 E/E' Med: 25.00 E' Laterial: 4.35 E/E' Lat: 18.10 Right Ventricle TAPSE (mm): 20.40 TVS' Van: 10.60 Tricuspid Valve TR Pk Van: 2.33 TR Pk Grad: 22.00 RA Press: 3.00 RVSP: 25.00 Great Vessels Aorta Sinus of Valsalva: 3.90 2.0-3.5 cm Ao Asc: 3.60 2.1-3.4 cm Updated in Other Vendor System with Status of Final Yeison Bowden MD electronically signed on 11/29/2022 4:34:40 PM with status of Final
--- NOTE | 2022-11-29 08:08 | CA_ITS ---
Acquisition Time: 2022-11-29 09:22:45 Total Exercise Time: 00:02:00 Test Indications: CAD, LBBB Medications: SEE H Protocol: LEXISCAN Max HR: 081 BPM 52% of Pred: 154 BPM Max BP: 148/096 mmHG Max Work Load: 1.0 METS Pharmacological stress test usind Lexiscan while sitting. PT. tolerated well. Denies any cardiac symptpms. EKG with isolated PVC's. Normotensive response. Nuclear images to follow. Test reviewed with Dr. Ewing. Referred By: Yeison Bowden Overread By: Meseret Mcmanus NP
== END ==
LOC: HO.CARD 08:05
PROVIDERS: PCP Internal Medicine; Visit Provider Internal Medicine
DX: R07.2 Precordial pain (principal); I44.7 Left bundle-branch block, unspecified; I25.119 Atherosclerotic heart disease of native coronary artery with unspecified angina pectoris
CPT/HCPCS: 78452; 93017; 93306; A9500; J0280; J2785

== ENCOUNTER → 2022-11-29 08:08 | Outpatient (BNV) | payer OTHER, SELFPAY | PROVIDERS: PCP Internal Medicine; Visit Provider Nurse Practitioner Family | DX: R07.2 Precordial pain (principal) | CPT/HCPCS: 78452; 93016; 93018; 93306 ==

== ENCOUNTER 2022-12-14 13:38 | Outpatient (AMB) | payer OTHER, SELFPAY ==
--- NOTE | 2022-12-14 09:30 | A.OFFVIS_ITS ---
Intake Intake Visit Reasons: LDCT SD Allergies dimethyl fumarate [Tecfidera] Allergy (Intermediate, Verified 10/17/22 13:33) hives HPI LDCT SD HPI Details Initial visit for this 67yo smoker - for SDM visit - NO SCAN TODAY Patient has been smoking since age 15 for 52 years at 1ppd - with a 50PYH . Denies marijuana use. Denies second hand smoke exposure. Denies exposure to chemicals or substances like asbestos. . Denies known family history of lung cancer. Denies personal history of cancers. . Denies recent travel outside the [place]. Denies recent respiratory illness or recent hospitalization for respiratory issues. Denies testing positive for COVID. Admits receiving COVID Vaccine. x 2. . Denies fever, chills, new/worsening cough, hemoptysis, hoarseness or dysphagia. Denies significant chest pain, significant dyspnea or unintentional weight loss. Patient Lung Cancer Screening Questionnaire reviewed with patient by provider. . Shared Decision Making Completed. Patient meets criteria. Discussed in detail with patient, the risk vs benefit of LDCT screening. Patient consents to proceed with scan. Discussed smoking cessation. . She had intial LDCT on 10/26/22 - Lung RADS 1 Negative Plan will be annual LDCT scan. [facility] Medical History (Updated 12/14/22 @ 13:36 by Idania Altamirano PA-C) Adrenal mass Atherosclerotic cardiovascular disease Chronic diastolic (congestive) heart failure COPD (chronic obstructive pulmonary disease) Dyslipidemia Essential hypertension Fatty liver History of heart attack Hypothyroidism Morbid obesity Multiple sclerosis Nicotine dependence, cigarettes, uncomplicated MAXIMO (obstructive sleep apnea) Renal mass Surgical History (Updated 10/22/22 @ 11:31 by Idania Altamirano PA-C) History of cholecystectomy History of heart artery stent Family History Father CAD (coronary artery disease) Mother No problems noted. Brother CAD (coronary artery disease) Social History Household Members: Other Household Members Other:: lives at friends house Housing: House Alcohol intake: never Patient Tobacco Use Status: Current everyday Tobacco user Tobacco use type: Cigarette Cigarette Packs Per Day: 1 e-Cigarette/Vaping Use: Never Used Second Hand Smoke Exposure: No Substance Use Type: Crack/Cocaine service: No Current occupational status: retired and disabled Cognitive needs: No Hearing needs: No Vision needs: Yes Assessment & Plan Assessment & Plan (1) Nicotine dependence, cigarettes, uncomplicated: Comment: (current smoker, onset 15yo, 1ppd x 53yo, 50pyh) Code(s): F17.210 - Nicotine dependence, cigarettes, uncomplicated Plan: - SDM visit completed today in office. - She had intial LDCT on 10/26/22 - Lung RADS 1 Negative - Patient meets criteria for LDCT for lung cancer screening purposes and is asymptomatic. - Smoking cessation counseling offered. Patients can always call [phone]. - Will arrange for a LDCT scan of the chest for screening purposes at [facility] - in 1 year. - Risks, benefits, and alternatives were discussed in detail and the patient agrees to proceed. - Risks discussed include but are not limited to: radiation exposure, anxiety during testing and while awaiting results, false negatives, false positives and possibility of additional intervention such as further imaging or surgical procedures for benign disease. - Benefits are obviously detection of lung cancer at an early stage which can lead to improved outcomes. - Discussed the importance of screening program compliance with adherence to yearly LDCT scan as scheduled - or sooner interval scans for personalized screening regimen. - Discussed follow up plan. Our office will send a letter discussing results and if needed set up phone call and office visit based on CT findings. - Patient educated on results categorization and the management decisions for suspicious findings potentially found on the screening LDCT scan. Any patient with a Lung RADS score of 3 or 4 will be reviewed by a multidisciplinary team at [facility] to form a plan of action in regards to scan findings. - If further work up is warranted for a suspicious lung finding this will be followed by the Lung Cancer Screening program in conjunction with the Thoracic Surgery Department at [facility]. - A copy of the office note and LDCT will be sent to the patient's PCP - as well as documentation on any associated further plans of care. - Incidental findings on LDCT are the PCP's responsibility. These findings are indicated with an S finding on the LDCT Assessment. A note discussing the findings will be sent to the PCP who is then responsible for further management. - All questions answered.? Quality Reporting (2019) Adult ([facility] 138/07/04/68) Smoking risk assessment performed?: Yes Patient Tobacco Use Status: Current everyday Tobacco user Coding Level of Care Code Lung Cancer Screening G0296 Diagnoses Nicotine dependence, cigarettes, uncomplicated F17.210
== END 2022-12-14 14:18 | disposition home or self-care (01) ==
PROVIDERS: PCP Internal Medicine; Visit Provider Physician Assistant Medical
DX: F17.210 Nicotine dependence, cigarettes, uncomplicated (principal)
CPT/HCPCS: G0296

== ENCOUNTER → 2022-12-14 13:38 | Outpatient (BNVA) | payer OTHER, SELFPAY | PROVIDERS: Visit Provider Physician Assistant Medical | DX: F17.210 Nicotine dependence, cigarettes, uncomplicated (principal) | CPT/HCPCS: G0296 ==

== ENCOUNTER 2022-12-17 13:39 | Outpatient (REF) | payer OTHER, SELFPAY ==
--- NOTE | ~2022-12-17 | MR_ITS ---
EXAMINATION: MR BRAIN WITHOUT AND WITH CONTRAST CLINICAL INFORMATION: Multiple sclerosis. COMPARISON: Brain MRI 12/12/2021, 07/09/2019. TECHNIQUE: Multiplanar MR imaging of the brain was performed without and with contrast. 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 Numerous foci of T2 FLAIR signal hyperintense are also visualized within the periventricular white matter with a periventricular predominant distribution. No acute territorial infarct. No pathological magnetic susceptibility artifact. Intracranial vascular flow voids are maintained. Postcontrast images reveal no abnormal intracranial mass or enhancement. There is no intracranial mass effect or midline shift. No hydrocephalus. Midline structures including the cervicomedullary junction are normal. No acute bone marrow signal changes. There are bilateral mastoid effusions. Mild paranasal sinus disease primarily affecting the ethmoid air cells. Globes and orbits are symmetric. 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 Extensive chronic signal changes drain is stable with no evidence of new or worsening white matter disease. Post contrast images reveal no abnormal enhancement. No evidence of acute territorial infarct or hemorrhage.
== END 2022-12-17 13:40 | disposition home or self-care (01) ==
LOC: HO.MRI 13:39
PROVIDERS: PCP Internal Medicine; Visit Provider Psychiatry & Neurology Neurology
DX: G35 Multiple sclerosis (principal)
CPT/HCPCS: 70553; A9585

== ENCOUNTER 2023-01-22 08:21 | Outpatient (AMB) | payer OTHER, SELFPAY ==
--- NOTE | 2023-01-22 08:32 | MHC.PC.OV ---
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: No Accompanied by: Self / Same As Patient Allergies dimethyl fumarate [Tecfidera] Allergy (Intermediate, Verified 01/22/23 08:42) hives Medication List - Last Reconciled 01/22/23 by Avelina Mclaughlin MD [adult diapers pull-ups As directed] albuterol sulfate 2.5 mg (3 mL) inhalation TID PRN 30 days albuterol sulfate 90 mcg/actuation (Ventolin HFA) 2 puffs inhalation Q6H PRN 30 days aspirin 81 mg PO DAILY atorvastatin 40 mg PO BEDTIME 90 days clotrimazole 1% 1 appl topical BID 4 weeks diclofenac sodium 1% (Arthritis Pain (diclofenac)) 2 grams topical QID PRN 30 days iouuyltulln-[id number]-znqulnkv 200-62.5-25 mcg (Trelegy Ellipta) 1 inh inhalation DAILY 30 days gabapentin 400 mg PO TID 30 days incontinence pad, liner, disp BRAND: FIT RIGHT levothyroxine 100 mcg PO DAILY 90 days lisinopril 10 mg PO DAILY 90 days nebulizers As directed omeprazole 20 mg PO DAILY 90 days Oxygen Home Use As directed peginterferon beta-1a (Plegridy) 125 mcg subcut Q28D tiotropium bromide (Spiriva with HandiHaler) 1 cap inhalation DAILY 30 days Tobacco use date assessed: 09/14/22 Fall risk assessment: No Falls in past year Last assessed Fall Risk: 01/22/23 Dental Screening Dental Screen Date: 01/22/23 Did you have a dental visit in the last 12 months?: No Did you have a dental problem in the last 6 months where you did not have access to dental care?: No Was dental information given to patient?: Patient declined HPI HPI Comments History of Present Illness Details This is a 67-year-old female with COPD, multiple sclerosis, hypertension, morbid obesity and hypothyroidism that comes today for follow-up on her conditions. She is alone today. COPD stable with Trelegy and follow by pulmonology. Last MRI of the brain shows chronic infarct of left middle cerebral artery but she has no residual deficit. Multiple sclerosis is follow by Neurology and has been in remission. Walks with a walker for gait stability. Blood pressure stable with lisinopril. She is morbidly obese with BMI of 44.3 and was advised to diet and exercise to reach BMI goal less than 30. Last TSH was elevated but improved and TSH will be repeated. No chest pain or shortness of breath. [facility] Medical History Nicotine dependence, cigarettes, uncomplicated Adrenal mass Hypothyroidism Renal mass MAXIMO (obstructive sleep apnea) Fatty liver Chronic diastolic (congestive) heart failure Atherosclerotic cardiovascular disease History of heart attack Multiple sclerosis Essential hypertension COPD (chronic obstructive pulmonary disease) Dyslipidemia Morbid obesity Surgical History History of heart artery stent History of cholecystectomy Family History Father CAD (coronary artery disease) Mother No problems noted. Brother CAD (coronary artery disease) Social History Household Members: Other Household Members Other:: lives at friends house Housing: House Alcohol intake: never Patient Tobacco Use Status: Current everyday Tobacco user Tobacco use type: Cigarette Cigarette Packs Per Day: 1 e-Cigarette/Vaping Use: Never Used Second Hand Smoke Exposure: No Substance Use Type: Crack/Cocaine service: No Current occupational status: retired and disabled Cognitive needs: No Hearing needs: No Vision needs: Yes Questionnaire Thrive Questionnaire Date Thrive assessed: 09/14/22 SCHUYLER-7 AMB Questionnaire SCHUYLER-7 Date SCHUYLER - 7 assessed: 09/14/22 Source: Developed by Drs. Brent Meade, Nicole Roberts, Dav Giordano and colleagues, with an educational holli from [employer]. Review of Systems Const All systems reviewed & are unremarkable except as noted in HPI and below Eyes Reports no additional complaints, Denies change in vision and Denies other visual disturbances Card Denies chest pain at rest, Denies chest pain with activity, Denies edema, Denies irregular heart rhythm, Denies claudication, Denies dyspnea, Denies dyspnea on exertion, Denies orthopnea, Denies paroxysmal nocturnal dyspnea and Denies slow heart rate Resp Denies cough, Denies dyspnea and Denies dyspnea on exertion GI Denies abdominal pain, Denies change in bowel habits, Denies excessive flatus, Denies nausea and Denies vomiting Denies urinary incontinence, Denies urinary hesitancy and Denies urinary urgency Musc Denies abnormal gait, Denies atrophy, Denies deformity and Denies limited range of motion Skin/Breast Denies bleeding lesions, Denies changing lesions and Denies rash Neuro Denies abnormal gait and Denies lack of coordination Physical exam (Primary Care) Vital Signs: Last Vital Signs Pulse 64 01/22/23 08:33 BP 136/82 01/22/23 08:33 Pulse Ox 92 01/22/23 08:33 Oxygen Delivery Method Room Air 01/22/23 08:33 BMI result Body Mass Index 44.3 Tobacco/Smoking Status: Tobacco use Status Tobacco use date assessed 09/14/22 01/22/23 08:33 Patient Tobacco Use Status Current everyday Tobacco 01/22/23 08:33 Tobacco use type Cigarette 01/22/23 08:33 e-Cigarette/Vaping Use Never Used 01/22/23 08:33 Thrive Assessment: Date of Thrive Assessment Date Thrive assessed 09/14/22 01/22/23 08:33 Const Limitations: ambulation with walker Eyes General: appearance normal, both eyes and all related structures Eyelids: Yes eyelids normal Conjunctivae: conjunctivae normal Neck Neck: Yes normal visual inspection and Yes supple Resp Effort & Inspection: normal respiratory effort Auscultation: clear to auscultation bilaterally Cardio Jugular venous distension: no JVD Rate: regular rate Rhythm: regular rhythm Heart sounds: S1 normal heart sound present and S2 normal heart sound present Extrem General: Yes full ROM Assessment and Plan Assessment & Plan (1) Multiple sclerosis: Code(s): G35 - Multiple sclerosis Plan: Follow-up with neurology. In remission. (2) Essential hypertension: Code(s): I10 - Essential (primary) hypertension Plan: Continue lisinopril. Blood pressure goal is equal or less than 130/80. (3) COPD (chronic obstructive pulmonary disease): Code(s): J44.9 - Chronic obstructive pulmonary disease, unspecified Plan: Continue Trelegy. Use rescue inhaler as needed. (4) Morbid obesity: Code(s): E66.01 - Morbid (severe) obesity due to excess calories Plan: Start diet and exercise. Patient declines weight loss surgery. BMI goal is less than 30. (5) Hypothyroidism: Code(s): E03.9 - Hypothyroidism, unspecified Plan: Continue levothyroxine. Repeat TSH. Orders: Orders Lipid Panel Today E78.5 - Hyperlipidemia, unspecified, I10 - Essential (primary) hypertension Comprehensive [place]. Panel Fast Today I10 - Essential (primary) hypertension Thyroid Stimulating Hormone Today E03.9 - Hypothyroidism, unspecified Complete Blood Count Auto Diff Today E66.01 - Morbid (severe) obesity due to excess calories Coding Level of Care Code Est Pt Level 4 (29835) Diagnoses Multiple sclerosis G35 Essential hypertension I10 COPD (chronic obstructive pulmonary disease) J44.9 Morbid obesity E66.01 Hypothyroidism E03.9 Time Spent (min) 24
[2023-01-22 08:33] VITALS: BP 136/82; PULSE 64; O2SAT 92; BMI 44.3
== END 2023-01-22 08:59 | disposition home or self-care (01) ==
PROVIDERS: PCP Internal Medicine; Visit Provider Internal Medicine
DX: G35 Multiple sclerosis (principal); I10 Essential (primary) hypertension; E66.01 Morbid (severe) obesity due to excess calories; Z68.41 Body mass index [BMI] 40.0-44.9, adult; J44.9 Chronic obstructive pulmonary disease, unspecified; E03.9 Hypothyroidism, unspecified
CPT/HCPCS: 99214

== ENCOUNTER 2023-01-25 08:45 | Outpatient (AMB) | payer OTHER, SELFPAY ==
--- NOTE | 2023-01-25 08:49 | A.OFFVIS_ITS ---
Intake Vital Signs 01/25/23 08:50 Height 5 ft 2 in Weight 243 lb 6.245 oz BMI 44.5 BP 140/92 H Blood Pressure Location Lt brachial Position Sitting Pulse 74 Pulse Source Pulse Oximeter Intake Visit Reasons: 3 mth s/p anju/ echo/ HS Intake Note: 3 month follow up after echo and anju stress. 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 Required: No Accompanied by: Self / Same As Patient Allergies dimethyl fumarate [Tecfidera] Allergy (Intermediate, Verified 01/25/23 08:50) hives Medication List - Last Reconciled 01/25/23 by Sparkle Davis, VAL-C [adult diapers pull-ups As directed] albuterol sulfate 2.5 mg (3 mL) inhalation TID PRN 30 days albuterol sulfate 90 mcg/actuation (Ventolin HFA) 2 puffs inhalation Q6H PRN 30 days aspirin 81 mg PO DAILY atorvastatin 40 mg PO BEDTIME 90 days clotrimazole 1% 1 appl topical BID 4 weeks diclofenac sodium 1% (Arthritis Pain (diclofenac)) 2 grams topical QID PRN 30 days cukxattrrdy-vkhfpjcoq-lcucqgif 200-62.5-25 mcg (Trelegy Ellipta) 1 inh inhalation DAILY 30 days gabapentin 400 mg PO TID 30 days incontinence pad, liner, disp BRAND: FIT RIGHT levothyroxine 100 mcg PO DAILY 90 days lisinopril 10 mg PO DAILY 90 days nebulizers As directed omeprazole 20 mg PO DAILY 90 days Oxygen Home Use As directed peginterferon beta-1a (Plegridy) 125 mcg subcut Q28D tiotropium bromide (Spiriva with HandiHaler) 1 cap inhalation DAILY 30 days HPI 3 mth s/p anju/ echo/ HS HPI Details Rena is a 67-year-old female with past medical history of hypertension, hyperlipidemia, morbid obesity, multiple sclerosis, smoking, CAD, abdominal aortic aneurysm, who was found to have new left bundle branch block on recent EKG. She underwent a stress test and echocardiogram and now presents for follow-up. Today she reports she has been feeling quite well without concerning symptoms. She denies any chest discomfort at rest or with activity. She denies shortness of breath, heart palpitations, dizziness, presyncope, syncope, PND, orthopnea or edema. She ambulates with her walker. She takes her medications as directed. [facility] Medical History Nicotine dependence, cigarettes, uncomplicated Adrenal mass Hypothyroidism Renal mass MAXIMO (obstructive sleep apnea) Fatty liver Chronic diastolic (congestive) heart failure Atherosclerotic cardiovascular disease History of heart attack Multiple sclerosis Essential hypertension COPD (chronic obstructive pulmonary disease) Dyslipidemia Morbid obesity Surgical History History of heart artery stent History of cholecystectomy Family History Father CAD (coronary artery disease) Mother No problems noted. Brother CAD (coronary artery disease) Social History Household Members: Other Household Members Other:: lives at friends house Housing: House Alcohol intake: never Patient Tobacco Use Status: Current everyday Tobacco user Tobacco use type: Cigarette Cigarette Packs Per Day: 1 Cigarettes Per Day: 20 Years Smoked: 40 +/- e-Cigarette/Vaping Use: Never Used Second Hand Smoke Exposure: No Substance Use Type: Crack/Cocaine service: No Current occupational status: retired and disabled Cognitive needs: No Hearing needs: No Vision needs: Yes Review of Systems Const Details: Ambulates with a walker All systems reviewed & are unremarkable except as noted in HPI and below Denies weakness ENT Denies dizziness Card Denies chest pain, Denies chest pain with activity, Denies syncope, Denies rapid heart rate, Denies pedal edema, Denies edema, Denies leg edema, Denies lightheadedness, Denies palpitations, Denies dyspnea, Denies dyspnea on exertion and Denies orthopnea Resp Denies cough, Denies dyspnea and Denies dyspnea on exertion GI Denies hematochezia and Denies change in stool character Musc Denies abnormal gait, Denies muscle cramps, Denies muscle weakness, Denies numbness, Denies radiating pain into limb and Denies tingling Neuro Denies abnormal gait, Denies dizziness, Denies syncope, Denies numbness, Denies tingling and Denies weakness Endo Denies palpitations Physical Exam Vital Signs: Last Vital Signs Pulse 74 01/25/23 08:50 BP 140/92 H 09/15/23 08:50 BMI result Body Mass Index 44.5 Const Other: Morbidly obese General: cooperative, comfortable and no acute distress Orientation/consciousness: patient oriented x3 Neck Neck: Yes normal visual inspection Resp Effort & Inspection: normal respiratory effort Auscultation: clear to auscultation bilaterally, no crackles, no rales, no rhonchi and no wheezes Cardio Jugular venous distension: no JVD Rate: regular rate Rhythm: regular rhythm Heart sounds: S1 normal heart sound present, S2 normal heart sound present, no murmurs and no rubs Neuro General: patient oriented x3 Extrem General: Yes normal to inspection, No no pedal edema and No calf tenderness Psych Appearance: grossly normal Mental Status: mental status grossly normal Speech and movement: Normal speech and movement present Assessment & Plan Assessment & Plan (1) Atherosclerotic cardiovascular disease: Comment: (NSTEMI/PCI stents to mid & distal RCA in 2011; NSTEMI in 2013) Code(s): I25.10 - Atherosclerotic heart disease of [place] coronary artery without angina pectoris Plan: History of CAD with bare metal stent to the distal RCA in 2011 for NSTEMI. She had recurrent NSTEMI 2013 with cardiac catheterization showing patent stents. She has done well since then. Recent EKG showing new left bundle branch block. She underwent a nuclear stress test on 11/29/2022 showing normal myocardial perfusion imaging with EF 55%. Echocardiogram done 11/29/2022 showing EF 50-55%, mild calcification of the aortic valve, no significant change from echo 03/2021. At present she denies any anginal sounding symptoms. Will continue medical management for stable CAD with aspirin indefinitely. Continue atorvastatin with LDL goal less than 70. Benefits of good blood pressure control with reviewed with her. She has not yet taking her medication today. Benefits of weight loss and smoking cessation discussed. Increase physical activity as tolerated. Cardiology follow-up in 6 months, sooner if needed (2) LBBB (left bundle branch block): Code(s): I44.7 - Left bundle-branch block, unspecified Plan: Newer finding on EKG. Stress test normal (3) Essential hypertension: Code(s): I10 - Essential (primary) hypertension Plan: Mildly elevated today. Has not yet taken and meds. No med changes made at this time. Continue lisinopril (4) Dyslipidemia: Code(s): E78.5 - Hyperlipidemia, unspecified Plan: [facility] LDL goal less than 70. No recent labs for review. She has lab orders in the system and patient was reminded of this. Continue atorvastatin (5) Nicotine dependence, cigarettes, uncomplicated: Comment: (current smoker, onset 15yo, 1ppd x 53yo, 50pyh) Code(s): F17.210 - Nicotine dependence, cigarettes, uncomplicated Plan: Continues to smoke 1 pack per day. Tells me she has not been able to cut back but will continue to work on it. (6) Morbid obesity: Code(s): E66.01 - Morbid (severe) obesity due to excess calories Plan: Is mostly sedentary due to history of multiple scleroses. Has not been able to lose weight recently. Quality Reporting (2019) Adult ([facility] 138/07/04/68) Smoking risk assessment performed?: Yes Patient Tobacco Use Status: Current everyday Tobacco user Coding Level of Care Code Est Pt Level 4 (49557) Diagnoses Atherosclerotic cardiovascular disease I25.10 LBBB (left bundle branch block) I44.7 Essential hypertension I10 Dyslipidemia E78.5 Nicotine dependence, cigarettes, uncomplicated F17.210 Morbid obesity E66.01 Time Spent (min) 24
[2023-01-25 08:50] VITALS: BP 140/92; PULSE 74; BMI 44.5
== END 2023-01-25 09:02 | disposition home or self-care (01) ==
PROVIDERS: PCP Internal Medicine; Referring Provider Internal Medicine; Visit Provider Nurse Practitioner Family
DX: I25.10 Atherosclerotic heart disease of native coronary artery without angina pectoris (principal); I44.7 Left bundle-branch block, unspecified; I10 Essential (primary) hypertension; E78.5 Hyperlipidemia, unspecified; F17.210 Nicotine dependence, cigarettes, uncomplicated; E66.01 Morbid (severe) obesity due to excess calories
CPT/HCPCS: 99214

== ENCOUNTER → 2023-01-25 08:45 | Outpatient (BNVA) | payer OTHER, SELFPAY | PROVIDERS: PCP Internal Medicine; Referring Provider Internal Medicine; Visit Provider Nurse Practitioner Family | DX: I25.10 Atherosclerotic heart disease of native coronary artery without angina pectoris (principal); I44.7 Left bundle-branch block, unspecified; I10 Essential (primary) hypertension; E78.5 Hyperlipidemia, unspecified; E66.01 Morbid (severe) obesity due to excess calories; F17.210 Nicotine dependence, cigarettes, uncomplicated; Z68.41 Body mass index [BMI] 40.0-44.9, adult | CPT/HCPCS: 99212 ==

== ENCOUNTER 2023-03-19 09:31 | Outpatient (AMB) | payer OTHER, SELFPAY ==
[2023-03-19 09:34] VITALS: BP 138/78; PULSE 70; RESP 12; O2SAT 91; BMI 45.0
--- NOTE | 2023-03-19 09:34 | A.OFFVIS_ITS ---
Intake Vital Signs 03/19/23 09:34 Height 5 ft 2 in Weight 246 lb BMI 45.0 BP 138/78 Blood Pressure Location Rt radial Position Sitting Respiration 12 Pulse 70 Pulse Source Pulse Oximeter Pulse Oximetry (%) 91 L Oxygen Delivery Method Room Air Intake Visit Reasons: COPD Allergies dimethyl fumarate [Tecfidera] Allergy (Intermediate, Verified 03/19/23 09:35) hives Medication List - Last Reconciled 03/19/23 by Iris Allen LPN [adult diapers pull-ups As directed] albuterol sulfate 2.5 mg (3 mL) inhalation TID PRN 30 days albuterol sulfate 90 mcg/actuation (Ventolin HFA) 2 puffs inhalation Q6H PRN 30 days aspirin 81 mg PO DAILY atorvastatin 40 mg PO BEDTIME 90 days clotrimazole 1% 1 appl topical BID 4 weeks diclofenac sodium 1% (Arthritis Pain (diclofenac)) 2 grams topical QID PRN 30 days ftjqoaymqev-tzgipynut-oztvbgxc 200-62.5-25 mcg (Trelegy Ellipta) 1 ea inhalation DAILY gabapentin 400 mg PO TID 30 days incontinence pad, liner, disp BRAND: FIT RIGHT levothyroxine 100 mcg PO DAILY 90 days lisinopril 10 mg PO DAILY 90 days nebulizers As directed omeprazole 20 mg PO DAILY 90 days Oxygen Home Use As directed peginterferon beta-1a (Plegridy) 125 mcg subcut Q28D tiotropium bromide (Spiriva with HandiHaler) 1 cap inhalation DAILY 30 days HPI HPI Comments History of Present Illness Details The patient is a 67-year-old woman with a known history of tobacco dependency and COPD. She has had multiple admissions to the hospital. The real ent has evidence of respiratory failure currently on oxygen. While in the hospital she did have a CT scan of the abdomen that demonstrated a renal mass. She was evaluated by Oncology and Urology in the hospital. She does have follow-up for this. Patient has been using the oxygen. Oxygen tanks are too heavy. In the office we did have her undergo a 6 minutes walk test with the conserving device and she did well on 2 L pulse. Therefore I will really send a script to her [employer] company on the conserving device. The patient also is willing to start the lung cancer screening program. She continues to use her Trelegy inhaler which appears to be effective for her. In addition to that has a short- acting beta agonist. Will continue on her therapy. The patient also has nicotine patches prescribed. She understands she is not smoke on top of the nicotine patches. Although she can use the the great gum or any other nicotine supplements for breakthrough symptoms. 01/25/2022 the patient is here for a keaton esposito follow-up visit. Since we last spoke she is doing a little better. She responded well to the Trelegy inhaler. Unfortunate she did not tolerate the Nicotrol inhaler. She did not like the mental. She is still smoking cigarettes. She is smoking almost a pack a day. She is willing to try cutting down to half a pack. The patient understands that she has severe COPD based on her pulmonary function studies. She deferred on her lung cancer screening she did not want after CT scan this time. The patient has been using her oxygen. However she did not get any small portable tanks from her [employer] company,. Therefore we did do another walking test which she again qualify for oxygen with a pulse device. The patient should start 2 L pulse with activity. Also, she should really consider pulmonary rehabilitation. 09/28/2022 the patient is here for pulortega lemus follow-up visit. Overall she is doing well using the Trelegy inhaler. She has not had to use the rescue inhale r. She could not tolerate the Nicotrol inhaler because of the mental flavor. Although she will try it again. She also has a patch. She is not ready to quit smoking but I will hope that she can cut down some more. She is not participating in the lung cancer screening program which is reassuring. She is using her oxygen with good effect. Will plan to do pulmonary function studies sometime in the fall and hope to set her up with pulmonary rehabilitation. She does have some plan trips this summer. 03/19/2023 the patient is here for pulortega lemus follow-up visit. She has been doing well at this time. She is tolerating the Trelegy. She has a rescue inhaler that she rarely uses. The patient has been responding well to the oxygen. Unfortunately she continues to smoke cigarettes. She understands that is a health risk to use oxygen smoke as she can cause a fire M hurt herself as well as others. The patient needs to quit altogether. She is participating in the lung cancer screening program. Last CT scan was reassuring. Will follow-up after her next CT scan in October 2022. [facility] Medical History (Updated 03/19/23 @ 21:16 by William Hall MD) Thyroid nodule Nicotine dependence, cigarettes, uncomplicated Adrenal mass Hypothyroidism Renal mass MAXIMO (obstructive sleep apnea) Fatty liver Chronic diastolic (congestive) heart failure Atherosclerotic cardiovascular disease History of heart attack Multiple sclerosis Essential hypertension COPD (chronic obstructive pulmonary disease) Dyslipidemia Morbid obesity Surgical History History of heart artery stent History of cholecystectomy Family History Father CAD (coronary artery disease) Mother No problems noted. Brother CAD (coronary artery disease) Social History Household Members: Other Household Members Other:: lives at friends house Housing: House Alcohol intake: never Patient Tobacco Use Status: Current everyday Tobacco user Tobacco use type: Cigarette Cigarette Packs Per Day: 1 Cigarettes Per Day: 20 Years Smoked: 40 +/- e-Cigarette/Vaping Use: Never Used Second Hand Smoke Exposure: No Substance Use Type: Crack/Cocaine service: No Current occupational status: retired and disabled Cognitive needs: No Hearing needs: No Vision needs: Yes Review of Systems Const Denies chills, Denies fever(s) and Denies headache(s) Eyes Denies change in vision ENT Denies dizziness and Denies headache(s) Card Reports no additional complaints, Denies syncope and Reports dyspnea on exertion Resp Reports cough, Reports dyspnea on exertion and Denies wheezing GI Denies abdominal pain and Denies heartburn Skin/Breast Denies rash Neuro Denies Abnormal speech present, Denies dizziness, Denies syncope and Denies headache(s) Aller/Immun Denies wheezing Physical Exam Vital Signs: Last Vital Signs Pulse 70 03/19/23 09:34 Resp 12 03/19/23 09:34 BP 138/78 03/19/23 09:34 Pulse Ox 91 L 03/19/23 09:34 Oxygen Delivery Method Room Air 03/19/23 09:34 BMI result Body Mass Index 45.0 Const General: alert Neck Neck: Yes supple Chest Chest palpation & inspection: normal inspection of the chest Resp Auscultation: diminished lung sounds Cardio Rate: regular rate Rhythm: regular rhythm Heart sounds: S1 normal heart sound present and S2 normal heart sound present GI Inspection: Yes normal to inspection Skin General skin exam: no rashes or lesions noted Neuro Speech: No Abnormal speech present Extrem General: Yes normal to inspection Results Reviewed Results Reviewed: [address] [address] [address] Scan Report Signed Patient: Rena Cancino MR#: [id number] : 1955 Acct:[id number] Age/Sex: 67 / F ADM Date: 10/26/22 Loc: HO.CT Attending Dr: Idania Altamirano PA-C Ordering Physician: Idania Altamirano PA-C Date of Service: 10/26/22 Procedure(s): CT lung screening Accession Number(s): [id number] cc: Idania Altamirano PA-C~ EXAMINATION: CT CHEST SCREENING CLINICAL INFORMATION: Current smoker. 51 pack year history. COMPARISON: Previous chest x-ray September 2021 TECHNIQUE: Multidetector volumetric CT imaging of the chest is performed without contrast using low dose technique. Additional 2D coronal and sagittal reformatted images and axial 3D maximum intensity projection (MIP) images are generated on the CT workstation. This CT examination was performed using dose optimization techniques as appropriate, variously including the following: *Automated exposure control *Adjustment of mA and/or kV according to patient size (this includes techniques or standardized protocols for targeted exams where dose is matched to indication/reason for exam; i.e. extremities or head) *Use of iterative reconstruction technique DLP: 94 mGy-cm FINDINGS: LUNGS: Mild emphysema. Subsegmental atelectasis or scarring in the inferior segment of the lingula. The lungs are otherwise clear. No endobronchial or endotracheal lesion. MEDIASTINUM: Left superior mediastinal calcification question representing calcification in the inferior left lobe of thyroid gland. The mediastinum is otherwise normal. CORONARY ARTERY CALCIFICATION: Moderate to severe PLEURA: There is no pleural effusion. No pleural mass or thickening. AXILLA: Small axillary lymph nodes. No enlarged lymph nodes or chest wall mass. UPPER ABDOMEN: Unremarkable OSSEOUS STRUCTURES: Degenerative changes of the spine. CT/CT lung screening IMPRESSION: Mild emphysema. Calcified left thyroid nodule. Follow-up thyroid ultrasound recommended. moderate to severe coronary artery calcification. ASSESSMENT: Lung-RADS category 1: Negative RECOMMENDATION: Annual low-dose chest CT follow-up recommended Dictated By: Nery Salcedo MD Signed By: <Electronically signed by Nery Salcedo MD in OV> 11/02/22 1406 DD/ 1430 TD/TT: Parts Cataloguer: BERENICE Assessment & Plan Assessment & Plan (1) Chronic respiratory failure: Code(s): J96.10 - Chronic respiratory failure, unspecified whether with hypoxia or hypercapnia Qualifiers: Respiratory failure complication: hypoxia Qualified Code(s): J96.11 - Chronic respiratory failure with hypoxia (2) COPD (chronic obstructive pulmonary disease): Code(s): J44.9 - Chronic obstructive pulmonary disease, unspecified Qualifiers: COPD type: chronic bronchitis Chronic bronchitis type: simple Qualified Code(s): J41.0 - Simple chronic bronchitis (3) Smoker: Code(s): F17.200 - Nicotine dependence, unspecified, uncomplicated (4) Renal mass: Code(s): N28.89 - Other specified disorders of kidney and ureter (5) MAXIMO (obstructive sleep apnea): Comment: non compliant Code(s): G47.33 - Obstructive sleep apnea (adult) (pediatric) (6) Thyroid nodule: Code(s): E04.1 - Nontoxic single thyroid nodule Plan Thyroid us continue Trelegy continue the short-acting beta agonist as needed lung cancer screening program use nicotine patch Nicotrol inhaler as needed in between for breakthrough symptoms consider pulmonary rehab Oxygen 2L with sleep and 2L/pulse with small b cylinders with activity F/U 6 months Orders: Orders US thyroid Today E04.1 - Nontoxic single thyroid nodule Quality Reporting (2019) Adult ([facility] 138//) Smoking risk assessment performed?: Yes Patient Tobacco Use Status: Current everyday Tobacco user Coding Level of Care Code Est Pt Level 4 (85123) Diagnoses Chronic respiratory failure with hypoxia J96.11 Respiratory failure complication: hypoxia Simple chronic bronchitis J41.0 COPD type: chronic bronchitis Chronic bronchitis type: simple Smoker F17.200 Renal mass N28.89 MAXIMO (obstructive sleep apnea) G47.33 Thyroid nodule E04.1 Time Spent (min) 16
== END 2023-03-19 09:57 | disposition home or self-care (01) ==
PROVIDERS: PCP Internal Medicine; Visit Provider Hospitalist
DX: J96.11 Chronic respiratory failure with hypoxia (principal); J41.0 Simple chronic bronchitis; F17.200 Nicotine dependence, unspecified, uncomplicated; N28.89 Other specified disorders of kidney and ureter; G47.33 Obstructive sleep apnea (adult) (pediatric); E04.1 Nontoxic single thyroid nodule
CPT/HCPCS: 99214

== ENCOUNTER → 2023-03-19 09:31 | Outpatient (BNVA) | payer OTHER, SELFPAY | PROVIDERS: PCP Internal Medicine; Visit Provider Hospitalist | DX: J96.11 Chronic respiratory failure with hypoxia (principal); J41.0 Simple chronic bronchitis; N28.89 Other specified disorders of kidney and ureter; G47.33 Obstructive sleep apnea (adult) (pediatric); E04.1 Nontoxic single thyroid nodule; F17.210 Nicotine dependence, cigarettes, uncomplicated | CPT/HCPCS: 99212 ==

== ENCOUNTER 2023-07-26 08:43 | Outpatient (AMB) | payer OTHER, SELFPAY ==
[2023-07-26 08:52] VITALS: BP 150/90; PULSE 66; BMI 46.2
--- NOTE | 2023-07-26 08:52 | A.OFFVIS_ITS ---
Intake Vital Signs 07/26/23 08:52 Height 5 ft 2 in Weight 252 lb 10.396 oz BMI 46.2 BP 150/90 H Blood Pressure Location Lt brachial Position Sitting Pulse 66 Pulse Source Pulse Oximeter Intake Visit Reasons: 6M follow up Core Winding Operator Required: No Allergies dimethyl fumarate [Tecfidera] Allergy (Intermediate, Verified 07/26/23 08:55) hives Medication List - Last Reconciled 07/26/23 by Sparkle Davis, VAL-C [adult diapers pull-ups As directed] albuterol sulfate 2.5 mg (3 mL) inhalation TID PRN 30 days albuterol sulfate 90 mcg/actuation (Ventolin HFA) 2 puffs inhalation Q6H PRN 30 days aspirin 81 mg PO DAILY atorvastatin 40 mg PO BEDTIME 90 days clotrimazole 1% 1 appl topical BID 4 weeks diclofenac sodium 1% (Arthritis Pain (diclofenac)) 2 grams topical QID PRN 30 days eexfwmctxct-nqjpcxgnk-cikwudwi 200-62.5-25 mcg (Trelegy Ellipta) 1 ea inhalation DAILY gabapentin 400 mg PO TID 30 days incontinence pad, liner, disp BRAND: FIT RIGHT levothyroxine 100 mcg PO DAILY 90 days lisinopril 10 mg PO DAILY 90 days nebulizers As directed omeprazole 20 mg PO DAILY 90 days Oxygen Home Use As directed peginterferon beta-1a (Plegridy) 125 mcg subcut Q28D tiotropium bromide (Spiriva with HandiHaler) 1 cap inhalation DAILY 30 days HPI 6M follow up HPI Details Rena is a 67-year-old female with past medical history of hypertension, hyperlipidemia, morbid obesity, multiple sclerosis, smoking, CAD, abdominal aortic aneurysm, newer left bundle branch block who presents for follow-up. Today she reports she has been feeling unchanged since her last visit in January. She denies any chest discomfort at rest or with activity. She does have an intermittent cough which she relates to smoking. She has no significant shortness of breath, PND, orthopnea or edema. She denies heart palpitations, lightheadedness, presyncope, syncope, falls. She is mostly sedentary and ambulates short distances with her walker. She takes her medications as directed but did not take them yet today as she was rushing to get to this appointment. [facility] Medical History Thyroid nodule Nicotine dependence, cigarettes, uncomplicated Adrenal mass Hypothyroidism Renal mass MAXIMO (obstructive sleep apnea) Fatty liver Chronic diastolic (congestive) heart failure Atherosclerotic cardiovascular disease History of heart attack Multiple sclerosis Essential hypertension COPD (chronic obstructive pulmonary disease) Dyslipidemia Morbid obesity Surgical History History of heart artery stent History of cholecystectomy Family History Father CAD (coronary artery disease) Mother No problems noted. Brother CAD (coronary artery disease) Social History Household Members: Other Household Members Other:: lives at friends house Housing: House Alcohol intake: never Patient Tobacco Use Status: Current everyday Tobacco user Tobacco use type: Cigarette Cigarette Packs Per Day: 1 Cigarettes Per Day: 20 Years Smoked: 40 +/- e-Cigarette/Vaping Use: Never Used Second Hand Smoke Exposure: No Substance Use Type: Crack/Cocaine service: No Current occupational status: retired and disabled Cognitive needs: No Hearing needs: No Vision needs: Yes Review of Systems Const All systems reviewed & are unremarkable except as noted in HPI and below ENT Denies dizziness Card Denies chest pain, Denies chest pain at rest, Denies chest pain with activity, Denies rapid heart rate, Denies pedal edema, Denies edema, Denies leg edema, Denies lightheadedness, Denies palpitations, Reports dyspnea, Denies dyspnea on exertion and Denies orthopnea Resp Details: still smoking 1 ppd Reports cough, Reports dyspnea and Denies dyspnea on exertion GI Denies hematochezia and Denies change in stool character Musc Reports abnormal gait (uses walker), Denies limited range of motion, Denies muscle cramps, Denies muscle weakness, Denies numbness, Denies radiating pain into limb, Denies stiffness and Denies tingling Neuro Reports abnormal gait (uses walker), Denies dizziness, Denies numbness and Denies tingling Endo Denies palpitations Physical Exam Vital Signs: Last Vital Signs Pulse 66 07/26/23 08:52 BP 150/90 H 07/26/23 08:52 BMI result Body Mass Index 46.2 Const Other: morbidly obese General: cooperative, comfortable and no acute distress Orientation/consciousness: patient oriented x3 Neck Neck: Yes normal visual inspection and Yes no JVD Resp Other: congested sounding cough Effort & Inspection: normal respiratory effort Auscultation: clear to auscultation bilaterally, no crackles, no rales, no rhonchi and no wheezes Cardio Jugular venous distension: no JVD Rate: regular rate Rhythm: regular rhythm Heart sounds: S1 normal heart sound present, S2 normal heart sound present, no murmurs and no rubs Peripheral pulses: Peripheral pulses 2+ throughout Neuro General: patient oriented x3 Extrem General: Yes normal to inspection and No no pedal edema Psych Appearance: grossly normal Mental Status: mental status grossly normal Speech and movement: Normal speech and movement present Assessment & Plan Assessment & Plan (1) Atherosclerotic cardiovascular disease: Comment: (NSTEMI/PCI stents to mid & distal RCA in 2011; NSTEMI in 2013) Code(s): I25.10 - Atherosclerotic heart disease of grindstone coronary artery without angina pectoris Plan: History of CAD with bare metal stent to the distal RCA in 2011 for NSTEMI. She had recurrent NSTEMI 2013 with cardiac catheterization showing patent stents. She has done well since then. Recent EKG showing new left bundle branch block. She underwent a nuclear stress test on 11/29/2022 showing normal myocardial perfusion imaging with EF 55%. Echocardiogram done 11/29/2022 showing EF 50-55%, mild calcification of the aortic valve, no significant change from echo 03/2021. At present she denies any anginal sounding symptoms. Will continue medical management for stable CAD with aspirin indefinitely. Continue atorvastatin with LDL goal less than 70. Benefits of good blood pressure control with reviewed with her. She has not yet taking her medication today. Benefits of weight loss and smoking cessation discussed. Increase physical activity as tolerated. Will enter labs into the system, CMP and lipids. Patient informed to obtain. Cardiology follow-up in 6 months, sooner if needed (2) LBBB (left bundle branch block): Code(s): I44.7 - Left bundle-branch block, unspecified Plan: Newer finding on EKG. Stress test normal (3) Essential hypertension: Code(s): I10 - Essential (primary) hypertension Plan: Mildly elevated today. Has not yet taken and meds. Was elevated on last visit as well. Will increase her lisinopril up from 10 mg daily up to 20 mg daily. (4) Dyslipidemia: Code(s): E78.5 - Hyperlipidemia, unspecified Plan: [place] LDL goal less than 70. No recent labs for review. New lab orders entered into the system and informed to obtain. Continue atorvastatin (5) Nicotine dependence, cigarettes, uncomplicated: Comment: (current smoker, onset 15yo, 1ppd x 53yo, 50pyh) Code(s): F17.210 - Nicotine dependence, cigarettes, uncomplicated Plan: Continues to smoke 1 pack per day. Tells me she has not been able to cut back but will continue to work on it. Congested cough noted at time of exam. (6) Morbid obesity: Code(s): E66.01 - Morbid (severe) obesity due to excess calories Plan: Is mostly sedentary due to history of multiple scleroses. Has not been able to lose weight recently. Plan Time spent on chart review, documentation, interview and assessment Orders: Orders Lipid Panel Today I25.10 - Atherosclerotic heart disease of grindstone coronary artery without angina pectoris Comprehensive [place]. Panel Fast Today I25.10 - Atherosclerotic heart disease of grindstone coronary artery without angina pectoris Medications: New lisinopril dose increase 20 mg PO DAILY 90 tabs 3RF Discontinued lisinopril Discontinued Reason: Doctor's Order 10 mg PO DAILY 90 days 90 tabs 1RF I10 - Essential (primary) hypertension Quality Reporting (2019) Adult ([facility] 138/2/22/69) Smoking risk assessment performed?: Yes Patient Tobacco Use Status: Current ev eryday Tobacco user Coding Level of Care Code Est Pt Level 4 (64926) Diagnoses Atherosclerotic cardiovascular disease I25.10 LBBB (left bundle branch block) I44.7 Essential hypertension I10 Dyslipidemia E78.5 Nicotine dependence, cigarettes, uncomplicated F17.210 Morbid obesity E66.01 Time Spent (min) 28
== END 2023-07-26 09:16 | disposition home or self-care (01) ==
PROVIDERS: PCP Internal Medicine; Visit Provider Nurse Practitioner Family
DX: I25.10 Atherosclerotic heart disease of native coronary artery without angina pectoris (principal); I44.7 Left bundle-branch block, unspecified; I10 Essential (primary) hypertension; E78.5 Hyperlipidemia, unspecified; F17.210 Nicotine dependence, cigarettes, uncomplicated; E66.01 Morbid (severe) obesity due to excess calories
CPT/HCPCS: 99214

== ENCOUNTER → 2023-07-26 08:43 | Outpatient (BNVA) | payer OTHER, SELFPAY | PROVIDERS: PCP Internal Medicine; Visit Provider Nurse Practitioner Family | DX: I25.10 Atherosclerotic heart disease of native coronary artery without angina pectoris (principal); I44.7 Left bundle-branch block, unspecified; I10 Essential (primary) hypertension; E78.5 Hyperlipidemia, unspecified; E66.01 Morbid (severe) obesity due to excess calories; F17.210 Nicotine dependence, cigarettes, uncomplicated; Z71.6 Tobacco abuse counseling | CPT/HCPCS: 99212 ==

== ENCOUNTER 2023-09-18 08:08 | Outpatient (AMB) | payer OTHER, SELFPAY ==
[2023-09-18 08:14] VITALS: BP 160/100; BMI 45.7
--- NOTE | 2023-09-18 08:14 | MHC.PC.OV ---
Vital Signs 09/18/23 08:14 Height 5 ft 2 in Weight 250 lb BMI 45.7 BP 160/100 H Blood Pressure Location Lt brachial Position Sitting Intake Visit Reasons: PE Intake Note: Patient here for a physical exam Camp Manager Required: No Accompanied by: Heather Allergies dimethyl fumarate [Tecfidera] Allergy (Intermediate, Verified 09/18/23 08:35) hives Medication List - Last Reconciled 09/18/23 by Avelina Mclaughlin MD [adult diapers pull-ups As directed] albuterol sulfate 2.5 mg (3 mL) inhalation TID PRN 30 days albuterol sulfate 90 mcg/actuation (Ventolin HFA) 2 puffs inhalation Q6H PRN 30 days aspirin 81 mg PO DAILY atorvastatin 40 mg PO BEDTIME 90 days clotrimazole 1% 1 appl topical BID 4 weeks diclofenac sodium 1% (Arthritis Pain (diclofenac)) 2 grams topical QID PRN 30 days fzvsxmistuc-syagaynvl-vfwbplap 200-62.5-25 mcg (Trelegy Ellipta) 1 ea inhalation DAILY gabapentin 400 mg PO TID 30 days incontinence pad, liner, disp BRAND: FIT RIGHT levothyroxine 100 mcg PO DAILY 90 days lisinopril 20 mg PO DAILY nebulizers As directed omeprazole 20 mg PO DAILY 90 days Oxygen Home Use As directed peginterferon beta-1a (Plegridy) 125 mcg subcut Q28D tiotropium bromide (Spiriva with HandiHaler) 1 cap inhalation DAILY 30 days underpads (Bed Underpads) As directed [wipes As directed] Tobacco use date assessed: 09/18/23 Fall risk assessment: No Falls in past year Last assessed Fall Risk: 09/18/23 Dental Screening Dental Screen Date: 09/18/23 Did you have a dental visit in the last 12 months?: No Did you have a dental problem in the last 6 months where you did not have access to dental care?: No Was dental information given to patient?: Patient has dentist HPI HPI Comments History of Present Illness Details This is a 67-year-old female with COPD, multiple sclerosis, morbid obesity, right adrenal mass and abdominal aortic aneurysm that comes accompanied by roommate for her physical exam. COPD is follow by pulmonology and has improved with Trelegy. She has a smoker and was advised to quit with [employer] works and [address] scan of the lung October 2022 which was negative. She also has multiple sclerosis follow by Neurology on Plegridy. 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 Walks with a walker for gait stability due to severe knee osteoarthritis. She is morbidly obese with a BMI of 45.7 and has been referred multiple times to weight management but she is very noncompliant patient that frequently no showed to her appointments. I will start her on Wegovy if insurance approved. Has a right adrenal mass that has been present for few years and CT scan of the abdomen will be repeated. Has an abdominal aortic aneurysm and an ultrasound will be repeated. Blood pressure elevated today and she did took her lisinopril and this is why I will increase lisinopril from 20 mg to 40 mg. Blood pressure will be recheck by nurse navigator in 3 weeks. Last mammogram was over 2 years ago. She had a colonoscopy over 10 years ago which was normal as per patient at [place]. Declines to do it now and will be willing to do Cologuard. [facility] Medical History (Updated 09/18/23 @ 09:10 by Avelina Mclaughlin MD) Chronic respiratory failure Thyroid nodule Nicotine dependence, cigarettes, uncomplicated Adrenal mass Hypothyroidism Renal mass MAXIMO (obstructive sleep apnea) Fatty liver Chronic diastolic (congestive) heart failure Atherosclerotic cardiovascular disease History of heart attack Multiple sclerosis Essential hypertension COPD (chronic obstructive pulmonary disease) Dyslipidemia Morbid obesity Surgical History History of heart artery stent History of cholecystectomy Family History Father CAD (coronary artery disease) Mother No problems noted. Brother CAD (coronary artery disease) Social History Household Members: Other Household Members Other:: lives at friends house Housing: House Alcohol intake: never Patient Tobacco Use Status: Current everyday Tobacco user Tobacco use type: Cigarette Cigarette Packs Per Day: 1 Cigarettes Per Day: 20 Years Smoked: 40 +/- e-Cigarette/Vaping Use: Never Used Second Hand Smoke Exposure: No Substance Use Type: Crack/Cocaine service: No Current occupational status: retired and disabled Cognitive needs: No Hearing needs: No Vision needs: Yes Questionnaire Thrive Questionnaire Date Thrive assessed: 09/14/22 SCHUYLER-7 AMB Questionnaire SCHUYLER-7 Date SCHUYLER - 7 assessed: 09/14/22 Source: Developed by Drs. Brent Meade, Nicole Roberts, Dav Giordano and colleagues, with an educational holli from [employer]. Review of Systems Const All systems reviewed & are unremarkable except as noted in HPI and below Eyes Reports no additional complaints, Denies change in vision and Denies other visual disturbances Card Denies chest pain at rest, Denies chest pain with activity, Denies edema, Denies irregular heart rhythm, Denies claudication, Denies dyspnea, Denies dyspnea on exertion, Denies orthopnea, Denies paroxysmal nocturnal dyspnea and Denies slow heart rate Resp Denies cough, Denies dyspnea and Denies dyspnea on exertion Physical exam (Primary Care) Vital Signs: Last Vital Signs BP 160/100 H 09/18/23 08:14 BMI result Body Mass Index 45.7 Tobacco/Smoking Status: Tobacco use Status Tobacco use date assessed 09/18/23 09/18/23 08:19 Patient Tobacco Use Status Current everyday Tobacco 09/18/23 08:19 Tobacco use type Cigarette 09/18/23 08:19 e-Cigarette/Vaping Use Never Used 09/18/23 08:19 Thrive Assessment: Date of Thrive Assessment Date Thrive assessed 09/14/22 09/18/23 08:19 Const Orientation/consciousness: patient oriented x3 Limitations: ambulation with walker HENMT Other: scaly external ears bilaterally Head: Yes normal to inspection, Yes normocephalic and Yes atraumatic Ears: external ears normal Eyes General: appearance normal, both eyes and all related structures Eyelids: Yes eyelids normal Conjunctivae: conjunctivae normal Neck Neck: Yes normal visual inspection and Yes supple Thyroid: solitary palpable nodule Resp Effort & Inspection: normal respiratory effort Auscultation: clear to auscultation bilaterally Cardio Jugular venous distension: no JVD Rate: regular rate Rhythm: regular rhythm Heart sounds: S1 normal heart sound present and S2 normal heart sound present GI Inspection: Yes normal to inspection Palpation (GI): Soft to palpation and nontender Auscultation: normal bowel sounds Skin Rashes: rashes noted (under the breasts) maculopapular rash bilateral Neuro General: patient oriented x3 and no focal motor deficits Extrem General: Yes full ROM Psych Appearance: grossly normal Immunizations tetanus-diphtheria toxoids-Td 2 Lf unit-2 Lf unit/0.5 mL IM suspension Performing Provider: Avelina Mclaughlin MD [facility] Administered by: ISACC Mckenzie on 09/18/23 08:56 Dose Route Admin Location Dispensed Lot Number Expiration Date NDC Senior Manager Asset Protection 0.5 mL IM Left Deltoid 0.5 mL [id number] 06/22/24 [address]-0 [employer] VIS Given Date VIS Provided VIS Publication Date 09/18/23 Single Vaccine 20 Eligibility Eligibility Date Funding Source Not [facility] Eligible 09/18/23 [facility] funds Assessment and Plan Assessment & Plan (1) Physical exam: Code(s): Z00.00 - Encounter for general adult medical examination without abnormal findings Plan: Repeat in a year. (2) Abdominal aortic aneurysm: Comment: (Partially thrombosed 3.5 x 3.6 cm abdominal aortic aneurysm - on 03/02/[address]) Code(s): I71.40 - Abdominal aortic aneurysm, without rupture, unspecified Plan: Repeat ultrasound of the abdomen. (3) Adrenal mass: Code(s): E27.8 - Other specified disorders of adrenal gland Plan: Repeat CT scan of the abdomen. (4) Multiple sclerosis: Code(s): G35 - Multiple sclerosis Plan: Follow-up with neurology. Continue plegridy. (5) COPD (chronic obstructive pulmonary disease): Code(s): J44.9 - Chronic obstructive pulmonary disease, unspecified Qualifiers: COPD type: chronic bronchitis Chronic bronchitis type: simple Qualified Code(s): J41.0 - Simple chronic bronchitis Plan: Continue Trelegy on Spiriva. Use rescue inhaler as needed. Follow-up with pulmonology. (6) Morbid obesity: Code(s): E66.01 - Morbid (severe) obesity due to excess calories Plan: Start Wegovy. BMI goal is less than 30. Orders: Orders MM screening mammo BI Today Z12.31 - Encounter for screening mammogram for malignant neoplasm of breast XR DEXA axial skeleton Today N95.9 - Unspecified menopausal and perimenopausal disorder Thyroid Stimulating Hormone Today E03.9 - Hypothyroidism, unspecified US abdominal aortic aneurysm Today I71.40 - Abdominal aortic aneurysm, without rupture, unspecified Vitamin D 25-OH Total Today E55.9 - Vitamin D deficiency, unspecified US thyroid Today E04.1 - Nontoxic single thyroid nodule Td State Immunization Today Z23 - Encounter for immunization CT abdomen wo/w IV con Today E27.8 - Other specified disorders of adrenal gland Referrals Cologuard Test Z12.11 - Encounter for screening for malignant neoplasm of colon, Z12.12 - Encounter for screening for malignant neoplasm of rectum Medications: New semaglutide (weight loss) (Wegovy) administer weeks 1 through 4 of therapy 0.25 mg (0.5 mL) subcut QWEEK 30 days 2.5 mL 0RF E66.01 - Morbid (severe) obesity due to excess calories lisinopril 40 mg PO DAILY 90 days 90 tabs 1RF I10 - Essential (primary) hypertension nystatin 1 appl topical DAILY 30 days PRN 30 grams 0RF rash B37.2 - Candidiasis of skin and nail Discontinued lisinopril dose increase Discontinued Reason: Patient Completed Course 20 mg PO DAILY 90 tabs 3RF Coding Level of Care Code Est Pt Prev Care >65y(58069) Diagnoses Physical exam Z00.00 Abdominal aortic aneurysm I71.40 Adrenal mass E27.8 Multiple sclerosis G35 Simple chronic bronchitis J41.0 COPD type: chronic bronchitis Chronic bronchitis type: simple Morbid obesity E66.01 Time Spent (min) 40
== END 2023-09-18 08:56 | disposition home or self-care (01) ==
PROVIDERS: Visit Provider Internal Medicine
DX: Z00.00 Encounter for general adult medical examination without abnormal findings (principal); I71.40 Abdominal aortic aneurysm, without rupture, unspecified; E27.8 Other specified disorders of adrenal gland; Z23 Encounter for immunization; G35 Multiple sclerosis; J41.0 Simple chronic bronchitis; E66.01 Morbid (severe) obesity due to excess calories
CPT/HCPCS: 90471; 90714; 99397

== ENCOUNTER 2023-09-30 06:36 | Outpatient (REF) | payer OTHER, SELFPAY ==
[2023-09-30 08:18] LABS: Alanine Aminotransferase 22 U/L (0-31); Albumin Level 4.1 g/dL (3.5-5.0); Alkaline Phosphatase 112 U/L (39-117); Anion Gap 17 (12-20); Aspartate Amino Transferase 22 U/L (5-31); Blood Urea Nitrogen 12 mg/dL (9-16); Calcium 10.1 mg/dL (8.4-10.2); Carbon Dioxide 30 mmol/L (22-29); Chloride 106 mmol/L (96-108); Cholesterol 121 mg/dL (<200); Estimated Glomerular Filt Rate > 60; Glucose Fasting 85 mg/dL (60-99); HDL Cholesterol 40 mg/dL (>40); LDL Cholesterol Calculated 50 mg/dL (<100); Potassium 5.1 mmol/L (3.3-5.1); Sodium 148 mmol/L (135-145); Total Protein 7.3 g/dL (6.5-8.0); Triglycerides 155 mg/dL (<150)
[2023-09-30 08:34] LABS: Thyroid Stimulating Hormone 5.88 uIU/mL (0.32-4.0); Vitamin D 25-OH Total 12.4 ng/mL (>30)
== END 2023-09-30 06:37 | disposition home or self-care (01) ==
LOC: HO.LAB 06:36
PROVIDERS: PCP Internal Medicine; Visit Provider Internal Medicine
DX: E55.9 Vitamin D deficiency, unspecified (principal); E03.9 Hypothyroidism, unspecified; I25.10 Atherosclerotic heart disease of native coronary artery without angina pectoris
CPT/HCPCS: 36415; 80053; 80061; 82306; 84443

== ENCOUNTER 2023-10-30 10:05 | Outpatient (AMB) | payer OTHER, SELFPAY ==
[2023-10-30 10:09] VITALS: PULSE 81; O2SAT 90; BMI 45.2
--- NOTE | 2023-10-30 10:09 | A.OFFVIS_ITS ---
Vital Signs 10/30/23 10:09 Height 5 ft 2 in Weight 247 lb BMI 45.2 Pulse 81 Pulse Source Pulse Oximeter Pulse Oximetry (%) 90 L Oxygen Delivery Method Room Air Intake Visit Reasons: COPD Blending Technician Required: No Allergies dimethyl fumarate [Tecfidera] Allergy (Intermediate, Verified 10/30/23 10:12) hives HPI Comments Details: The patient is a 68-year-old woman with a known history of tobacco dependency and COPD. She has had multiple admissions to the hospital. The patient has evidence of respiratory failure currently on oxygen. While in the hospital she did have a CT scan of the abdomen that demonstrated a renal mass. She was evaluated by Oncology and Urology in the hospital. She does have follow-up for this. Patient has been using the oxygen. Oxygen tanks are too heavy. In the office we did have her undergo a 6 minutes walk test with the conserving device and she did well on 2 L pulse. Therefore I will really send a script to her [employer] on the conserving device. The patient also is willing to start the lung cancer screening program. She continues to use her Trelegy inhaler which appears to be effective for her. In addition to that has a short-acting beta agonist. Will continue on her therapy. The patient also has nicotine patches prescribed. She understands she is not smoke on top of the nicotine patches. Although she can use the the great gum or any other nicotine supplements for breakthrough symptoms. 01/25/2022 the patient is here for a pulmonary follow-up visit. Since we last spoke she is doing a little better. She responded well to the Trelegy inhaler. Unfortunate she did not tolerate the Nicotrol inhaler. She did not like the mental. She is still smoking cigarettes. She is smoking almost a pack a day. She is willing to try cutting down to half a pack. The patient understands that she has severe COPD based on her pulmonary function studies. She deferred on her lung cancer screening she did not want after CT scan this time. The patient has been using her oxygen. However she did not get any small portable tanks from her [employer] company,. Therefore we did do another walking test which she again qualify for oxygen with a pulse device. The patient should start 2 L pulse with activity. Also, she should really consider pulmonary rehabilitation. 09/28/2022 the patient is here for pulmonary follow-up visit. Overall she is doing well using the Trelegy inhaler. She has not had to use the rescue inhaler. She could not tolerate the Nicotrol inhaler because of the mental flavor. Although she will try it again. She also has a patch. She is not ready to quit smoking but I will hope that she can cut down some more. She is not participating in the lung cancer screening program which is reassuring. She is using her oxygen with good effect. Will plan to do pulmonary function studies sometime in the fall and hope to set her up with pulmonary rehabilitation. She does have some plan trips this summer. 03/19/2023 the patient is here for pulmonary follow-up visit. She has been doing well at this time. She is tolerating the Trelegy. She has a rescue inhaler that she rarely uses. The patient has been responding well to the oxygen. Unfortunately she continues to smoke cigarettes. She understands that is a health risk to use oxygen smoke as she can cause a fire M hurt herself as well as others. The patient needs to quit altogether. She is participating in the lung cancer screening program. Last CT scan was reassuring. Will follow-up after her next CT scan in October 2022. 10/30/2023 the patient is here for pulmonary follow-up visit. The patient overall okay. She continues to use the Trelegy. She continues to use the oxygen as prescribed. Unfortunately she is still smoking cigarettes. She smoking about a pack a day. Although we did come in agreement that she is going to cut down to half a pack. We did talk about the different ways doing so. She is also participating in the lung cancer screening program. Her last CT scan was back in 10/30/2022 which has rads 1. She has significant calcifications of the coronary arteries likely from her smoking and also has some emphysema. Therefore she is likely to be scheduled for her next CT scan soon. Otherwise will follow-up in 8-12 months. If she has not difficulty she will call for an earlier assessment. [facility] Medical History (Updated 09/18/23 @ 09:10 by Avelina Mclaughlin MD) Chronic respiratory failure Thyroid nodule Nicotine dependence, cigarettes, uncomplicated Adrenal mass Hypothyroidism Renal mass MAXIMO (obstructive sleep apnea) Fatty liver Chronic diastolic (congestive) heart failure Atherosclerotic cardiovascular disease History of heart attack Multiple sclerosis Essential hypertension COPD (chronic obstructive pulmonary disease) Dyslipidemia Morbid obesity Surgical History History of heart artery stent History of cholecystectomy Family History Father CAD (coronary artery disease) Mother No problems noted. Brother CAD (coronary artery disease) Social History Household Members: Other Household Members Other:: lives at friends house Housing: House Alcohol intake: never Patient Tobacco Use Status: Current everyday Tobacco user Tobacco use type: Cigarette Cigarette Packs Per Day: 1 Cigarettes Per Day: 20 Years Smoked: 40 +/- e-Cigarette/Vaping Use: Never Used Second Hand Smoke Exposure: No Substance Use Type: Crack/Cocaine service: No Current occupational status: retired and disabled Cognitive needs: No Hearing needs: No Vision needs: Yes Review of Systems Const Denies chills, Denies fever(s) and Denies headache(s) Eyes Denies change in vision ENT Denies dizziness and Denies headache(s) Card Reports no additional complaints, Denies syncope and Reports dyspnea on exertion Resp Reports cough, Reports dyspnea on exertion and Denies wheezing GI Denies abdominal pain and Denies heartburn Skin/Breast Denies rash Neuro Denies Abnormal speech present, Denies dizziness, Denies syncope and Denies headache(s) Aller/Immun Denies wheezing Physical Exam Vital Signs: Last Vital Signs Pulse 81 10/30/23 10:09 Pulse Ox 90 L 10/30/23 10:09 Oxygen Delivery Method Room Air 10/30/23 10:09 BMI result Body Mass Index 45.2 Const General: alert Neck Neck: Yes supple Chest Chest palpation & inspection: normal inspection of the chest Resp Effort & Inspection: normal respiratory effort Auscultation: diminished lung sounds Cardio Rate: regular rate Rhythm: regular rhythm Heart sounds: S1 normal heart sound present and S2 normal heart sound present GI Inspection: Yes normal to inspection Skin General skin exam: no rashes or lesions noted Neuro Speech: No Abnormal speech present Extrem General: Yes normal to inspection Quality Reporting (2019) Adult ([facility] 138/2/22/69) Smoking risk assessment performed?: Yes Patient Tobacco Use Status: Current everyday Tobacco user Assessment & Plan Assessment & Plan (1) Chronic respiratory failure: Code(s): J96.10 - Chronic respiratory failure, unspecified whether with hypoxia or hypercapnia Category: Medical Qualifiers: Respiratory failure complication: hypoxia Qualified Code(s): J96.11 - Chronic respiratory failure with hypoxia (2) COPD (chronic obstructive pulmonary disease): Code(s): J44.9 - Chronic obstructive pulmonary disease, unspecified Category: Medical Qualifiers: COPD type: chronic bronchitis Chronic bronchitis type: simple Qualified Code(s): J41.0 - Simple chronic bronchitis (3) Smoker: Code(s): F17.200 - Nicotine dependence, unspecified, uncomplicated Category: Social Hx (4) Renal mass: Code(s): N28.89 - Other specified disorders of kidney and ureter Category: Medical (5) MAXIMO (obstructive sleep apnea): Comment: non compliant Code(s): G47.33 - Obstructive sleep apnea (adult) (pediatric) Category: Medical (6) Thyroid nodule: Code(s): E04.1 - Nontoxic single thyroid nodule Category: Medical Plan continue Trelegy continue the short-acting beta agonist as needed lung cancer screening program will cut down consider pulmonary rehab Oxygen 2L with sleep and 2L/pulse with small b cylinders with activity F/U 12 months Coding Level of Care Code Est Pt Level 4 (53275) Diagnoses Chronic respiratory failure with hypoxia J96.11 Respiratory failure complication: hypoxia Simple chronic bronchitis J41.0 COPD type: chronic bronchitis Chronic bronchitis type: simple Smoker F17.200 Renal mass N28.89 MAXIMO (obstructive sleep apnea) G47.33 Thyroid nodule E04.1 Time Spent (min) 16
== END 2023-10-30 10:22 | disposition home or self-care (01) ==
PROVIDERS: PCP Internal Medicine; Visit Provider Hospitalist
DX: J96.11 Chronic respiratory failure with hypoxia (principal); J41.0 Simple chronic bronchitis; F17.200 Nicotine dependence, unspecified, uncomplicated; N28.89 Other specified disorders of kidney and ureter; G47.33 Obstructive sleep apnea (adult) (pediatric); E04.1 Nontoxic single thyroid nodule
CPT/HCPCS: 99214

== ENCOUNTER → 2023-10-30 10:05 | Outpatient (BNVA) | payer OTHER, SELFPAY | PROVIDERS: PCP Internal Medicine; Visit Provider Hospitalist | DX: J96.11 Chronic respiratory failure with hypoxia (principal); J41.0 Simple chronic bronchitis; E04.1 Nontoxic single thyroid nodule; G47.33 Obstructive sleep apnea (adult) (pediatric); N28.89 Other specified disorders of kidney and ureter; F17.210 Nicotine dependence, cigarettes, uncomplicated | CPT/HCPCS: 99212 ==

== ENCOUNTER 2024-05-22 08:46 | Outpatient (AMB) | payer OTHER, SELFPAY ==
[2024-05-22 08:59] VITALS: BP 168/92; PULSE 72; BMI 42.0
--- NOTE | 2024-05-22 08:59 | A.OFFVIS_ITS ---
Vital Signs 05/22/24 08:59 Height 5 ft 2 in Weight 229 lb 11.547 oz BMI 42.0 BP 168/92 H Blood Pressure Location Lt brachial Position Sitting Pulse 72 Pulse Source Monitor Intake Visit Reasons: 6m f/u Global Account Director Required: No Retail Grocer: Retail Grocer Present Allergies dimethyl fumarate [Tecfidera] Allergy (Intermediate, Verified 05/22/24 09:02) hives Medication List - Last Reconciled 05/22/24 by Sparkle Davis NP-C [adult diapers pull-ups As directed] albuterol sulfate 2.5 mg (3 mL) inhalation TID PRN 30 days albuterol sulfate 90 mcg/actuation (Ventolin HFA) 2 puffs inhalation Q6H PRN 30 days amlodipine 5 mg PO DAILY 90 days aspirin 81 mg PO DAILY 90 days atorvastatin 40 mg PO BEDTIME 90 days cholecalciferol (vitamin D3) 50 mcg PO DAILY 90 days clotrimazole 1% 1 appl topical BID 4 weeks diclofenac sodium 1% (Arthritis Pain (diclofenac)) 2 grams topical QID PRN 30 days fluocinolone acetonide oil 0.01% (DermOtic Oil) 5 drps otic (ears) BID 7 days jlyxwwcxbjw-satuwwrms-hfdlcxwt 200-62.5-25 mcg (Trelegy Ellipta) 1 ea inhalation DAILY gabapentin 400 mg PO TID 30 days incontinence pad, liner, disp BRAND: FIT RIGHT levothyroxine 125 mcg PO DAILY 90 days lisinopril 40 mg PO DAILY 90 days nebulizers As directed nystatin 1 appl topical DAILY PRN 30 days omeprazole 20 mg PO DAILY 90 days Oxygen Home Use As directed peginterferon beta-1a (Plegridy) 125 mcg subcut Q28D semaglutide (weight loss) (Wegovy) 2.4 mg (0.75 mL) subcut QWEEK 4 weeks tiotropium bromide (Spiriva with HandiHaler) 1 cap inhalation DAILY 30 days underpads (Bed Underpads) As directed [wipes As directed] HPI HPI 6m f/u: Details: Rena is a 68-year-old female with past medical history of hypertension, hyperlipidemia, morbid obesity, multiple sclerosis, smoking, CAD, abdominal aortic aneurysm, newer left bundle branch block who presents for follow-up. Today she reports she has been feeling well since her last visit in July 2023. She is on injections for weight loss and is down 23 lb since her last visit. She denies any chest discomfort at rest or with activity. She has shortness of breath with activity which is not new. She has oxygen that she can wear as needed. She continues to smoke, currently 1 pack per day. She does not smoke and wear the oxygen at the same time. No PND, orthopnea or edema. She denies heart palpitations, lightheadedness, presyncope, syncope, falls. She is mostly sedentary and ambulates short distances with her walker. She takes her medications as directed but did not take them yet today as she was rushing to get to this appointment. Roommate is present. [facility] Medical History Multiple sclerosis Atherosclerotic cardiovascular disease Abdominal aortic aneurysm Chronic diastolic (congestive) heart failure History of heart attack Essential hypertension Dyslipidemia Chronic respiratory failure COPD (chronic obstructive pulmonary disease) MAXIMO (obstructive sleep apnea) Nicotine dependence, cigarettes, uncomplicated Thyroid nodule Hypothyroidism Adrenal mass Renal mass Fatty liver Morbid obesity Surgical History History of heart artery stent History of cholecystectomy Family History Father CAD (coronary artery disease) Mother No problems noted. Brother CAD (coronary artery disease) Social History Household Members: Other Household Members Other:: lives at friends house Housing: House Alcohol intake: never Patient Tobacco Use Status: Current everyday Tobacco user Tobacco use type: Cigarette Cigarette Packs Per Day: 1 Cigarettes Per Day: 20 Years Smoked: 40 +/- e-Cigarette/Vaping Use: Never Used Second Hand Smoke Exposure: No Substance Use Type: Crack/Cocaine service: No Current occupational status: retired and disabled Cognitive needs: No Hearing needs: No Vision needs: Yes Review of Systems Const All systems reviewed & are unremarkable except as noted in HPI and below ENT Denies dizziness Card Denies chest pain, Denies chest pain at rest, Denies chest pain with activity, Denies rapid heart rate, Denies pedal edema, Denies edema, Denies leg edema, Denies lightheadedness, Denies palpitations, Reports dyspnea, Reports dyspnea on exertion and Denies orthopnea Resp Denies cough, Reports dyspnea and Reports dyspnea on exertion GI Denies hematochezia and Denies change in stool character Musc Denies abnormal gait, Denies limited range of motion, Denies muscle cramps, Denies muscle weakness, Denies numbness, Denies radiating pain into limb, Denies stiffness and Denies tingling Neuro Denies abnormal gait, Denies dizziness, Denies numbness and Denies tingling Endo Denies palpitations Physical Exam Vital Signs: Last Vital Signs Pulse 72 05/22/24 08:59 BP 168/92 H 05/22/24 08:59 BMI result Body Mass Index 42.0 Const General: cooperative, healthy appearing, comfortable and no acute distress Orientation/consciousness: patient oriented x3 Neck Neck: Yes normal visual inspection Resp Effort & Inspection: normal respiratory effort Auscultation: clear to auscultation bilaterally, no rales, no rhonchi and no wheezes Cardio Jugular venous distension: no JVD Rate: regular rate Rhythm: regular rhythm Heart sounds: S1 normal heart sound present, S2 normal heart sound present, no murmurs and no rubs Neuro General: patient oriented x3 Extrem General: Yes normal to inspection and No no pedal edema Psych Appearance: grossly normal Mental Status: mental status grossly normal Speech and movement: Normal speech and movement present Office Procedures EKG Details: Today, read by me, normal sinus rhythm, left axis deviation, LBBB, rate 72 [id number], Complete Quality Reporting (2019) Adult ([facility] 138/07/04/68) Smoking risk assessment performed?: Yes Patient Tobacco Use Status: Current everyday Tobacco user Assessment & Plan Assessment & Plan (1) Atherosclerotic cardiovascular disease: Comment: (NSTEMI/PCI stents to mid & distal RCA in 2011; NSTEMI in 2013) Code(s): I25.10 - Atherosclerotic heart disease of [place] coronary artery without angina pectoris Category: Medical Plan: History of CAD with bare metal stent to the distal RCA in 2011 for NSTEMI. She had recurrent NSTEMI 2013 with cardiac catheterization showing patent stents. She has done well since then. In 2022 she was noted to have new left bundle branch block. She underwent a nuclear stress test on 11/29/2022 showing normal myocardial perfusion imaging with EF 55%. Echocardiogram done 11/29/2022 showing EF 50-55%, mild calcification of the aortic valve, no significant change from echo 03/2021. At present she denies any anginal sounding symptoms. EKG today is showing sinus rhythm with left bundle branch block, rate 73. Will continue medical management for stable CAD with aspirin indefinitely. Continue atorvastatin with LDL goal less than 70 continue lisinopril and amlodipine for blood pressure control. Her blood pressure is elevated today but she says she did not take her meds yet. The need for strict med compliance and taking them at the same time each day was reviewed. She is smoking a pack of cigarettes per day. Benefits of ongoing weight loss and smoking cessation discussed and she states understanding.. Increase physical activity as tolerated. Labs done 09/30/2023 showed creatinine 0.93 LDL 50. Will update echo prior to next visit to reassess EF. Cardiology follow-up in 6 months, sooner if needed (2) LBBB (left bundle branch block): Code(s): I44.7 - Left bundle-branch block, unspecified Category: Medical Plan: Present on EKG. Will recheck echo prior to next visit. Last EF was 50-55%. (3) Essential hypertension: Code(s): I10 - Essential (primary) hypertension Category: Medical Plan: Elevated at this visit, initially 168/92. Recheck done by me 144/78. She is on amlodipine and lisinopril. She says she did not take her medications today. Compliance reviewed. (4) Dyslipidemia: Code(s): E78.5 - Hyperlipidemia, unspecified Category: Medical Plan: [place] LDL goal less than 70. Recent labs show LDL is well controlled. Continue atorvastatin (5) Nicotine dependence, cigarettes, uncomplicated: Comment: (current smoker, onset 15yo, 1ppd x 53yo, 50pyh) Code(s): F17.210 - Nicotine dependence, cigarettes, uncomplicated Category: Medical Plan: Continues to smoke 1 pack per day. Tells me she has not been able to cut back but will continue to work on it. (6) Morbid obesity: Code(s): E66.01 - Morbid (severe) obesity due to excess calories Category: Medical Plan: Is mostly sedentary due to history of multiple scleroses. Currently on weight loss injections. Has lost 23 lb in the last 10 months. Plan Time spent on chart review, documentation, interview and assessment Coding Level of Care Code Est Pt Level 4 (18251) Complex EM visit Add On G2211 Diagnoses Atherosclerotic cardiovascular disease I25.10 LBBB (left bundle branch block) I44.7 Essential hypertension I10 Dyslipidemia E78.5 Nicotine dependence, cigarettes, uncomplicated F17.210 Morbid obesity E66.01 CPT Codes EKG - CPT: 51128-[id number], Complete ([id number]) Time Spent (min) 28
== END 2024-05-22 09:41 | disposition home or self-care (01) ==
PROVIDERS: PCP Internal Medicine; Visit Provider Nurse Practitioner Family
DX: I25.10 Atherosclerotic heart disease of native coronary artery without angina pectoris (principal); I44.7 Left bundle-branch block, unspecified; I10 Essential (primary) hypertension; E78.5 Hyperlipidemia, unspecified; F17.210 Nicotine dependence, cigarettes, uncomplicated; E66.01 Morbid (severe) obesity due to excess calories
CPT/HCPCS: 93010; 99214; G2211

== ENCOUNTER → 2024-05-22 08:46 | Outpatient (BNVA) | payer OTHER, SELFPAY | PROVIDERS: PCP Internal Medicine; Visit Provider Nurse Practitioner Family | DX: I25.10 Atherosclerotic heart disease of native coronary artery without angina pectoris (principal); I44.7 Left bundle-branch block, unspecified; I10 Essential (primary) hypertension; E78.5 Hyperlipidemia, unspecified; E66.01 Morbid (severe) obesity due to excess calories; F17.210 Nicotine dependence, cigarettes, uncomplicated; Z68.41 Body mass index [BMI] 40.0-44.9, adult | CPT/HCPCS: 93005; 99212 ==

== ENCOUNTER 2024-09-23 08:39 | Outpatient (AMB) | payer OTHER, SELFPAY ==
--- NOTE | 2024-09-23 08:44 | MHC.PC.OV ---
Vital Signs 09/23/24 08:45 Height 5 ft 2 in Weight 244 lb BMI 44.6 BP 148/86 H Blood Pressure Location Lt brachial Position Sitting Pulse 65 Pulse Source Pulse Oximeter Pulse Oximetry (%) 90 L Oxygen Delivery Method Room Air Intake Visit Reasons: annual exam/4 month f/u Surgical Scheduler Required: No Accompanied by: Self / Same As Patient Allergies dimethyl fumarate [Tecfidera] Allergy (Intermediate, Verified 09/23/24 09:00) hives Medication List - Last Reconciled 09/23/24 by Avelina Mclaughlin MD [adult diapers pull-ups As directed] albuterol sulfate 2.5 mg (3 mL) inhalation TID PRN 30 days albuterol sulfate 90 mcg/actuation (Ventolin HFA) 2 puffs inhalation Q6H PRN 30 days amlodipine 5 mg PO DAILY 90 days aspirin 81 mg PO DAILY 90 days atorvastatin 40 mg PO BEDTIME 90 days cholecalciferol (vitamin D3) 50 mcg PO DAILY 90 days clotrimazole 1% 1 appl topical BID 4 weeks diclofenac sodium 1% (Arthritis Pain (diclofenac)) 2 grams topical QID PRN 30 days fluocinolone acetonide oil 0.01% (DermOtic Oil) 5 drps otic (ears) BID 7 days ejnfyvuqcir-hrqdvnyey-yhbuyaxm 200-62.5-25 mcg (Trelegy Ellipta) 1 ea PO DAILY gabapentin 400 mg PO TID 30 days incontinence pad, liner, disp BRAND: FIT RIGHT levothyroxine 125 mcg PO DAILY 90 days lisinopril 40 mg PO DAILY 90 days nebulizers As directed nystatin 1 appl topical DAILY PRN 30 days omeprazole 20 mg PO DAILY 90 days Oxygen Home Use As directed peginterferon beta-1a (Plegridy) 125 mcg subcut Q28D tiotropium bromide (Spiriva with HandiHaler) 1 cap inhalation DAILY 30 days underpads (Bed Underpads) As directed [wipes As directed] Tobacco use date assessed: 09/23/24 Fall risk assessment: No Falls in past year Last assessed Fall Risk: 09/23/24 Dental Screening Dental Screen Date: 09/23/24 Did you have a dental visit in the last 12 months?: No Did you have a dental problem in the last 6 months where you did not have access to dental care?: No Was dental information given to patient?: Patient has dentist HPI HPI Comments History of Present Illness Details The patient is a 68-year-old female presenting for a physical examination and health maintenance. She has a significant medical history of chronic diseases, including essential hypertension, chronic obstructive pulmonary disease, and multiple sclerosis. The patient?s history of coronary artery disease includes a stent placement in 2011 and myocardial infarction in 2014. She also has a history of COPD for which she uses an inhaler and supplemental oxygen, and MS for which she takes specific medication. The patient?s current smoking habit is a risk factor for her existing conditions, and she has not adhered to her hypertension medications promptly, which coincides with elevated blood pressure readings. She has a notable past history of healthcare interventions including a past cholecystectomy in 2014 and previous weight management efforts with medication support. She has not recently followed up with her lung doctor or neurologist due to changes in insurance coverage for her prescribed MS medication but remains on another unspecified medication for MS. She lives with a roommate who is a social stressor mentioned during this visit. The patient demonstrates a commitment to addressing her health maintenance through planned screenings such as mammograms and bone density tests which have lapsed over the past year. - Vaccinations: Up to date with pneumonia and tetanus vaccines - Preventative screenings: Due for mammogram and bone density exams - CT scan for lung cancer screening was completed in 2022; recommended annually - Blood work to be ordered - Smoking cessation advised - Weight management discussed; awaiting [facility] approval [facility] Medical History (Updated 09/23/24 @ 13:59 by Avelina Mclaughlin MD) Multiple sclerosis Atherosclerotic cardiovascular disease Abdominal aortic aneurysm Chronic diastolic (congestive) heart failure History of heart attack Essential hypertension Dyslipidemia Chronic respiratory failure COPD (chronic obstructive pulmonary disease) MAXIMO (obstructive sleep apnea) Nicotine dependence, cigarettes, uncomplicated Thyroid nodule Hypothyroidism Adrenal mass Renal mass Fatty liver Morbid obesity Surgical History History of heart artery stent History of cholecystectomy Family History Father CAD (coronary artery disease) Mother No problems noted. Brother CAD (coronary artery disease) Social History Household Members: Other Household Members Other:: lives at friends house Housing: House Alcohol intake: never Patient Tobacco Use Status: Current everyday Tobacco user Tobacco use type: Cigarette Cigarette Packs Per Day: 1 Cigarettes Per Day: 20 Years Smoked: 40 +/- e-Cigarette/Vaping Use: Never Used Second Hand Smoke Exposure: No Substance Use Type: Crack/Cocaine service: No Current occupational status: retired and disabled Cognitive needs: No Hearing needs: No Vision needs: Yes Questionnaire PHQ-9 Over the last 2 weeks, how often have you been bothered by any of the following problems? 1. Little interest or pleasure in doing things: not at all 2. Feeling down, depressed, or hopeless: not at all 3. Trouble falling or staying asleep, or sleeping too much: not at all 4. Feeling tired or having little energy: not at all 5. Poor appetite or overeating: not at all 6. Feeling bad about yourself - or that you are a failure or have let yourself or your family down: not at all 7. Trouble concentrating on things, such as reading the newspaper or watching television: not at all 8. Moving or speaking so slowly that other people could have noticed. Or the opposite - being so fidgety or restless that you have been moving around a lot more than usual: not at all 9. Thoughts that you would be better off or of hurting yourself in some way: not at all Total score: 0 Depression Screening Interpretation: Negative Depression Screening Done: Yes 97175 - PHQ-9 Billing: Yes Source: Developed by Drs. Brent Meade, Nicole Roberts, Dav Giordano and colleagues, with an educational holli from [employer]. Thrive Questionnaire Date Thrive assessed: 09/23/24 I am a: Patient What is your living situation today?: I have a steady place to live Within the past 12 months, did the food you bought not last and you didn't have the money to get more?: Often true Within the past 12 months, did you worry whether your food would run out before you got money to buy more?: Sometimes True Do you have trouble paying for medicines?: Yes Do you have trouble getting transportation to medical appointments?: Yes Do you have trouble paying your heating and electricity bill?: Yes Do you have trouble taking care of your child, family member or friend?: Yes Do you have trouble with day-to-day activities such as bathing, preparing meals, shopping, managing finances, etc.?: Yes Are you currently unemployed and looking for a job?: Yes Are you interested in more education?: No Please select the resources that you would like help with: Housing/Longterm Currently or been in a relationship where the following occur: I choose not to answer THRIVE Score: 4 AUDIT C Alcohol Use Questionnaire (AUDIT-C) 1. How often do you have a drink containing alcohol?: Monthly or less 2. How many drinks containing alcohol do you have on a typical day when you are drinking?: 1 or 2 3. How often do you have six or more drinks on one occasion?: Never Total Score: 1 Score Reviewed/Action Taken: No SCHUYLER-7 AMB Questionnaire SCHUYLER-7 Date SCHUYLER - 7 assessed: 09/23/24 Feeling nervous, anxious, or on edge: 0 = Not at all Not being able to stop or control worryin = Not at all Worrying too much about different things: 0 = Not at all Trouble relaxin = Not at all Being so restless that it is hard to sit still: 0 = Not at all Becoming easily annoyed or irritable: 0 = Not at all Feeling afraid as if something awful might happen: 0 = Not at all Total SCHUYLER-7 score (0-4 normal; 5-9 mild; 10-14 moderate; 15-21 severe): 0 Source: Developed by Drs. Brent Meade, Nicole Roberts, Dav Giordano and colleagues, with an educational holli from [employer]. SCHUYLER-7 Assessment Billing SCHUYLER-7 Assessment Tool: SCHUYLER-7 Assessment 15240 Review of Systems Const All systems reviewed & are unremarkable except as noted in HPI and below Card Denies chest pain at rest, Denies chest pain with activity, Denies edema, Denies irregular heart rhythm, Denies claudication, Denies dyspnea, Denies dyspnea on exertion, Denies orthopnea, Denies paroxysmal nocturnal dyspnea and Denies slow heart rate Resp Denies cough, Denies dyspnea and Denies dyspnea on exertion Physical exam (Primary Care) Vital Signs: Last Vital Signs Pulse 65 09/23/24 08:45 BP 148/86 H 09/23/24 08:45 Pulse Ox 90 L 05/14/25 08:45 Oxygen Delivery Method Room Air 09/23/24 08:45 BMI result Body Mass Index 44.6 BMI Assessment/Plan discussion: High BMI High, discussed plan: lifestyle, weight reduction, dietary and physical activity Tobacco/Smoking Status: Tobacco use Status Tobacco use date assessed 09/23/24 09/23/24 08:53 Patient Tobacco Use Status Current everyday Tobacco 09/23/24 08:53 Tobacco use type Cigarette 09/23/24 08:53 e-Cigarette/Vaping Use Never Used 09/23/24 08:53 Are you ready to quit: No Tobacco cessation counseling provided: Yes Items discussed: Nicotine replacement and QuitWorks Relapse Prevention: discussed the importance of a supportive environment, discussed extending NRT, discussed negative mood or depression after quitting, weight gain after smoking is common and discussed dietary, exercise and/or lifestyle changes Number of minutes spent counselin CPT code: 30018 - 4-10 Minutes PHQ-9: PHQ-9 Score PHQ-9: Total score 0 09/23/24 09:03 Depression Screening Interpretation: Negative Thrive Assessment: Date of Thrive Assessment Date Thrive assessed 09/23/24 09/23/24 08:53 Currently or been in a relationship where the following occur: I choose not to answer Const Limitations: ambulation with cane HENMT Head: Yes normal to inspection, Yes normocephalic and Yes atraumatic Ears: external ears normal Eyes General: appearance normal, both eyes and all related structures Eyelids: Yes eyelids normal Conjunctivae: conjunctivae normal Neck Neck: Yes normal visual inspection and Yes supple Resp Effort & Inspection: normal respiratory effort Auscultation: clear to auscultation bilaterally Cardio Jugular venous distension: no JVD Rate: regular rate Rhythm: regular rhythm Heart sounds: S1 normal heart sound present and S2 normal heart sound present GI Inspection: Yes normal to inspection Palpation (GI): Soft to palpation and nontender Auscultation: normal bowel sounds Skin General skin exam: no rashes or lesions noted Neuro General: no focal motor deficits Extrem General: Yes full ROM Psych Appearance: grossly normal Coding Level of Care Code Est Pt Level 3 (70615) Est Pt Prev Care >65y(58782) Diagnoses Physical exam Z00.00 Cerebrovascular accident (CVA) involving left middle cerebral artery territory I63.512 Multiple sclerosis G35 Atherosclerotic cardiovascular disease I25.10 Morbid obesity E66.01 Simple chronic bronchitis J41.0 COPD type: chronic bronchitis Chronic bronchitis type: simple Additional Codes SCHUYLER-7 Assessment Billing - SCHUYLER-7 Assessment Tool: SCHUYLER-7 Assessment 68912 ([id number]) PHQ-9 - 44717 - PHQ-9 Billing: Yes ([id number]) Vital Signs *Quality* - CPT code: 84519 - 4-10 Minutes ([id number]) Time Spent (min) 38 Assessment & Plan Assessment & Plan (1) Physical exam: Code(s): Z00.00 - Encounter for general adult medical examination without abnormal findings Category: Medical (2) Cerebrovascular accident (CVA) involving left middle cerebral artery territory: Code(s): I63.512 - Cerebral infarction due to unspecified occlusion or stenosis of left middle cerebral artery Category: Medical (3) Multiple sclerosis: Code(s): G35 - Multiple sclerosis Category: Medical (4) Atherosclerotic cardiovascular disease: Comment: (NSTEMI/PCI stents to mid & distal RCA in 2011; NSTEMI in 2013) Code(s): I25.10 - Atherosclerotic heart disease of [place] coronary artery without angina pectoris Category: Medical (5) Morbid obesity: Code(s): E66.01 - Morbid (severe) obesity due to excess calories Category: Medical (6) COPD (chronic obstructive pulmonary disease): Code(s): J44.9 - Chronic obstructive pulmonary disease, unspecified Category: Medical Qualifiers: COPD type: chronic bronchitis Chronic bronchitis type: simple Qualified Code(s): J41.0 - Simple chronic bronchitis Plan The patient's plan includes careful monitoring and management of her hypertension with an emphasis on medication adherence. Continued treatment for her chronic diseases, including COPD, multiple sclerosis, and coronary artery disease, is essential, and specialists in pulmonology and neurology will be involved to address these conditions further. Preventive screenings such as mammograms, bone density tests, and annual lung cancer screening will be conducted as part of her health maintenance regimen. Efforts towards smoking cessation and weight management will be supported as goals for decreasing exacerbations of her medical conditions. Approval and initiation of Zepbound for weight loss will be pursued. The patient will continue using her current medications for cholesterol, MS, hypertension, and heartburn, and ensure her inhaler and supplemental oxygen are used consistently for COPD. Patient was informed and verbally consented to the use of an ambient scribe for clinic note documentation during this visit. During the visit, I discussed with the patient the importance of controlling her blood pressure and adherence to prescribed medications, given her history of cardiovascular events. I emphasized annual follow-up on her lung cancer screening due to a smoking history. The need for resuming mammograms and bone density tests was outlined as they are overdue. I reviewed the potential introduction of Zepbound for weight loss management and its implications. Possible referrals to pulmonology and neurology were mentioned to ensure comprehensive management given her current treatment regimen inadequacies. We discussed her living situation and the impact it might have on her overall health. I stressed the significance of lifestyle changes, particularly smoking cessation, for her cardiovascular and pulmonary health. The patient?s agreement and understanding were sought for each planned intervention. Orders: Orders MM tomosynthesis screening BI Today Z12.31 - Encounter for screening mammogram for malignant neoplasm of breast XR DEXA axial skeleton Today Z78.0 - Asymptomatic menopausal state Lipid Panel Today E78.5 - Hyperlipidemia, unspecified Vitamin B12 and Folate Today E53.8 - Deficiency of other specified B group vitamins Vitamin D 25-OH Total Today E55.9 - Vitamin D deficiency, unspecified Complete Blood Count Auto Diff Today D64.9 - Anemia, unspecified IRON PROFILE Today D64.9 - Anemia, unspecified Thyroid Stimulating Hormone Today E03.9 - Hypothyroidism, unspecified Comprehensive [place]. Panel Fast Today E66.01 - Morbid (severe) obesity due to excess calories Referrals Lung Cancer Screening Referral J41.0 - Simple chronic bronchitis Medications: New tirzepatide (weight loss) (Zepbound) for 4 weeks 2.5 mg (0.5 mL) subcut QWEEK 2 mL 0RF 4 weeks E66.01 - Morbid (severe) obesity due to excess calories, I25.10 - Atherosclerotic heart disease of [place] coronary artery without angina pectoris, I63.512 - Cerebral infarction due to unspecified occlusion or stenosis of left middle cerebral artery Patient Instructions: - Take prescribed blood pressure medication daily - Schedule and attend mammogram and bone density tests - Continue with current medication regimen as prescribed - Use inhaler and oxygen therapy consistently - Consider smoking cessation and seek resources to assist - Follow up with pulmonology and neurology specialists as referred - Await approval for Zepbound for weight management - Report any new symptoms or health concerns immediately
[2024-09-23 08:45] VITALS: BP 148/86; PULSE 65; O2SAT 90; BMI 44.6
--- OUTSIDE RECORDS SUMMARY | 2024-09-23 08:56 | XMS_ITS | Patient Health Record ---
Author Organization [facility] Address [address] [place] [address] Care Team Providers Care Drier Tender Name Role Phone Lay QUIÑONES, Avelina Primary Care Provider Unavail able Venancio Lin Unavailable [phone] Allergies No Known Allergies Reason For Referral No Information Medications Medication SIG (Take, Route, Frequency, Duration) Notes Start Date End Date Status Aspirin 81 MG 1 tablet Orally Once a day Active Atorvastatin Calcium 40 MG 1 tablet Orally Once a day for 30 days Active Albuterol Sulfate (2.5 MG/3ML) 0.083% U 3 ML VIA NEB TID PRN Inhalation for 30 Active Ciclopirox Olamine 0.77 % 1 application Externally Twice a day for 30 days Active Plegridy Active Trelegy Ellipta Acti ve amLODIPine Besylate Not-Taking Vitamin D3 Not-Takin g Breo Ellipta 100-25 MCG/INH INL 1 PUFF PO QD Inhalation for 30 Active levoFLOXacin Active Lisinopril Active Omeprazole Active Social History Tobacco Use: Social History Observation Description Date Details (start date - stop date) Current Smoker NA - NA Tobacco Use/Smoking Question Answer Notes Are you a: current smoker When did you start smoking? 49 years ago How many cigarettes a day do you smoke? 11-20 Alcohol Screen Question Answer Notes Did you have a drink contain ing alcohol in the past year? Yes How often did you have a dri nk containing alcohol in the past year? Monthly or less (1 point) Points 1 Interpretation Negative Tobacco use other than smoking: Question Answer Notes Are you an other tobacco user? No Problems Problem Type SNOMED Code ICD Code Onset Dates Problem Status W/U Status Risk Notes Problem Atherosclerosis of [place] arteries of the extremities (070806941458960) Atherosclerosis of [place] artery of both lower extremities, with unspecified presence of clinical manifestation (I70.203) Active confirmed Plan Of Treatment Pending Test Test Name Order Date [id number] NAIL, 6 OR MORE 10/21/2019 [id number] NAIL, 6 OR MORE 01/27/2020 [id number] NAIL, 6 OR MORE 04/25/2020 [id number] NAIL, 6 OR MORE 02/27/2023 [id number] SKIN LESIONS, OVER 4 02/28/20 23 Insurance Providers Payer Name Payer Address Payer Phone Subscriber Number Group Number Insured Name Patient Relationship to Insured Coverage Start Date Coverage End Date [facility] SCO Claims [address] [place] [id number] Rena Cancino Self - patient is the insured Medical (General) History Medical History History ICD Code Chicken pox Depression Gall bladder problems Headaches/Migraines Heart disease High blood pressure Joint implants/screws Multiple sclerosis Measles Mumps thyroid CAD Surgical History Surgery Date(Month/Year) gall bladder removed 2014 Heart stent 2013
== END 2024-09-23 09:16 | disposition home or self-care (01) ==
LOC: HO.HMCH 08:40
PROVIDERS: PCP Internal Medicine; Visit Provider Internal Medicine
DX: Z00.00 Encounter for general adult medical examination without abnormal findings (principal); I63.512 Cerebral infarction due to unspecified occlusion or stenosis of left middle cerebral artery; G35 Multiple sclerosis; E66.01 Morbid (severe) obesity due to excess calories; Z68.42 Body mass index [BMI] 45.0-49.9, adult; J41.0 Simple chronic bronchitis; I25.10 Atherosclerotic heart disease of native coronary artery without angina pectoris

== ENCOUNTER → 2024-09-23 08:39 | Outpatient (BNVA) | payer OTHER, SELFPAY | PROVIDERS: PCP Internal Medicine; Visit Provider Internal Medicine | DX: Z00.01 Encounter for general adult medical examination with abnormal findings (principal); I10 Essential (primary) hypertension; G35 Multiple sclerosis; I25.10 Atherosclerotic heart disease of native coronary artery without angina pectoris; I25.2 Old myocardial infarction; F17.210 Nicotine dependence, cigarettes, uncomplicated; E66.01 Morbid (severe) obesity due to excess calories; J41.0 Simple chronic bronchitis; Z86.73 Personal history of transient ischemic attack (TIA), and cerebral infarction without residual deficits; Z68.41 Body mass index [BMI] 40.0-44.9, adult; Z78.0 Asymptomatic menopausal state; Z95.828 Presence of other vascular implants and grafts; Z99.81 Dependence on supplemental oxygen | CPT/HCPCS: 96127; 99212; 99397 ==

== ENCOUNTER 2024-11-19 12:37 | Outpatient (REF) | payer OTHER, SELFPAY ==
--- NOTE | ~2024-11-19 | MM_ITS ---
EXAMINATION: DXA BONE DENSITY AXIAL HISTORY: Z78.0 - Asymptomatic menopausal state TECHNIQUE: Nanotecture Dual energy absorptiometry (DEXA) of the lumbar spine, total left hip, and femoral neck was performed. COMPARISON: There are no prior studies for comparison. FINDINGS: The bone mineral density of the lumbar spine is 1.261 g/cm2, corresponding to a T-score of 0.7, and a Z-score of 1.2. This is indicative of normal bone mineral density. The bone mineral density of the left total hip is 0.907 g/cm2, corresponding to a T-score of -0.8, and a Z-score of -0.3. This is indicative of normal bone mineral density. The bone mineral density of the left femoral neck is 0.856 g/cm2, corresponding to a T-score of -1.3, and a Z-score of -0.5. This is indicative of osteopenia. FRACTURE RISK: The FRAX index suggests a risk of major osteoporotic fracture of 7.8%, and of hip fracture 1.3%. MM/XR DEXA axial skeleton IMPRESSION: Based on bone mineral density, and according to World Health Organization (WHO) criteria, the diagnosis is consistent with osteopenia. Statistically, 68% of repeat scans fall within 1 SD (+/- 0.010 g/cm2 for AP spine L1-L4) and 1 SD (+/- 0.012 g/cm2 for femur total) FRAX is a trademark of the [employer] [facility] [employer] [employer], a World Health Organization (WHO) Collaborating Center. Electronically signed by: Brent Ocampo MD 11/19/2024 01:36 PM EDT
--- NOTE | ~2024-11-19 | MM_ITS ---
EXAMINATION: MM SCREENING DIGITAL BREAST TOMOSYNTHESIS, BILATERAL CLINICAL INFORMATION: Screening. Asymptomatic. COMPARISON: Mammography: Comparison is made with available priors TECHNIQUE: Digital breast mammography with tomosynthesis is performed in both the craniocaudal and mediolateral oblique views along with computer-aided detection (CAD). FINDINGS: There are scattered areas of fibroglandular density (ACR BI-RADS breast composition Category b). There are no significant masses, abnormal calcifications, or other abnormalities. MM/MM tomosynthesis screening BI IMPRESSION: No mammographic evidence of malignancy. ASSESSMENT: BI-RADS BI-RADS 1 - Negative RECOMMENDATION: Routine annual mammography screening. 1 year F/U This examination should not preclude the clinical evaluation of a suspicious palpable abnormality. This patient's information was entered into a reminder system with a target due date for their next mammogram. Electronically signed by: Leonor Valenzuela DO 12/01/2024 05:27 PM EDT
--- OUTSIDE RECORDS SUMMARY | 2024-11-19 12:41 | XMS_ITS | Patient Health Record ---
Author Organization [facility] Address [address] [place] [address] Care Team Providers Care Industrial Laborer Name Role Phone Lay QUIÑONES, Avelina Primary Care Provider Unavail able Venancio Lin Unavailable [phone] Allergies No Known Allergies Reason For Referral No Information Medications Medication SIG (Take, Route, Frequency, Duration) Notes Start Date End Date Status Aspirin 81 MG 1 tablet Orally Once a day Active Atorvastatin Calcium 40 MG 1 tablet Orally Once a day; Duration: 30 days Active Albuterol Sulfate (2.5 MG/3ML) 0.083% U 3 ML VIA NEB TID PRN Inhalation; Duration: 30 Active Ciclopirox Olamine 0.77 % 1 application Externally Twice a day; Duration: 30 days Active Plegridy Active Trelegy Ellipta Acti ve amLODIPine Besylate Not-Taking Vitamin D3 Not-Takin g Breo Ellipta 100-25 MCG/INH INL 1 PUFF PO QD Inhalation; Duration: 30 Active levoFLOXacin Active Lisinopril Active Omeprazole [...] Problem Status W/U Status Risk Notes Problem Bilateral atherosclerosis of arteries of lower limbs (disorder) ([id number] ) Atherosclerosis of [place] artery of both lower extremities, with unspecified presence of clinical manifestation (I70.203) Active confirmed Plan Of Treatment Pending Test Test Name Order Date [id number] NAIL, 6 OR MORE 10/21/2019 [id number] NAIL, 6 OR MORE 01/27/2020 [id number] NAIL, 6 OR MORE 04/25/2020 [id number] NAIL, 6 OR MORE 02/27/2023 [id number] SKIN LESIONS, OVER 4 02/28/20 23 Insurance Providers Payer Name Payer Address Payer Phone Subscriber Number Group Number Insured Name Patient Relationship to Insured Coverage Start Date Coverage End Date [facility] [employer] Claims [address] [place] [id number] Rena Cancino Self - patient is the insured Medical (General) History Medical History History ICD Code Chicken pox Depression Gall bladder problems Headaches/Migraines Heart disease High blood pressure Joint implants/screws Multiple sclerosis Measles Mumps thyroid CAD Surgical History Surgery Date(Month/Year) gall bladder removed 2014 Heart stent 2013
== END 2024-11-19 12:38 | disposition home or self-care (01) ==
LOC: HO.MAMMO 12:37
PROVIDERS: PCP Internal Medicine; Visit Provider Internal Medicine
DX: Z12.31 Encounter for screening mammogram for malignant neoplasm of breast (principal); Z13.820 Encounter for screening for osteoporosis; Z78.0 Asymptomatic menopausal state
CPT/HCPCS: 77063; 77067; 77080

== ENCOUNTER → 2024-11-19 13:00 | Outpatient (BNV) | payer OTHER, SELFPAY | PROVIDERS: PCP Internal Medicine; Visit Provider Radiology Diagnostic Radiology | DX: E28.39 Other primary ovarian failure (principal) | CPT/HCPCS: 77080 ==

== ENCOUNTER 2025-01-02 09:38 | Outpatient (REF) | payer OTHER, SELFPAY ==
--- NOTE | ~2025-01-02 | CT_ITS ---
CLINICAL HISTORY: F17.210 - Nicotine dependence, cigarettes, uncomplicated CT lung cancer screening (LDCT) Comparison: CT/REG/[place] - CT LUNG SCREENING - 10/26/22 14:19 EDT Technique: Axial CT images of the chest using low-dose technique. Referring provider counseled the patient on shared decision-making for LDCT screening. Additional counseling was provided on smoking cessation. Effective radiation dose total: DLP 66.2 mGycm, CTDIvol 2 mGy. Findings: Lung: Moderate airspace opacity within the right middle lobe. Coronary artery calcifications: Severe Limited upper abdomen: Unremarkable Other: None Impression: 1. Coronary artery disease. 2. LungRADS 0: Incomplete screening due to right middle lobe opacification suggestive of pneumonia. ##L0## Category 1: Normal; continue annual screening Category 2: Benign appearance or behavior, continue annual screening Category 3: Probably benign, [address] recommended Category 4A: Suspicious, [address] recommended; may consider PET/CT Category 4B: Suspicious, Additional diagnostics and/or tissue sampling recommended Category 4X: Suspicious, Additional diagnostics and/or tissue sampling recommended Category 0: Recalls (incomplete screen due to Incomplete coverage, Noise, Respiratory motion, Expiration, Obscured by acute abnormality) This document has been electronically signed by: Sukhjinder Nunn MD on 01/04/2025 14:46:50
== END 2025-01-02 09:39 | disposition home or self-care (01) ==
LOC: HO.CT 09:38
PROVIDERS: PCP Internal Medicine; Visit Provider Physician Assistant Medical
DX: Z12.2 Encounter for screening for malignant neoplasm of respiratory organs (principal); F17.210 Nicotine dependence, cigarettes, uncomplicated
CPT/HCPCS: 71271

== ENCOUNTER → 2025-01-02 09:39 | Outpatient (BNV) | payer OTHER, SELFPAY | PROVIDERS: PCP Internal Medicine; Visit Provider Radiology Diagnostic Radiology | DX: Z12.2 Encounter for screening for malignant neoplasm of respiratory organs (principal); R91.8 Other nonspecific abnormal finding of lung field; I25.10 Atherosclerotic heart disease of native coronary artery without angina pectoris; Z87.891 Personal history of nicotine dependence | CPT/HCPCS: 71271 ==

== ENCOUNTER 2025-01-14 14:12 | Outpatient (AMB) | payer OTHER, SELFPAY ==
[2025-01-14 14:16] VITALS: BP 138/78; PULSE 85; O2SAT 94; BMI 42.5
--- NOTE | 2025-01-14 14:16 | A.OFFVIS_ITS ---
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 She has had multiple admissions to the hospital. The patient has evidence of respiratory failure currently on oxygen. While in the hospital she did have a CT scan of the abdomen that demonstrated a renal mass. She was evaluated by Oncology and Urology in the hospital. She does have follow-up for this. Patient has been using the oxygen. Oxygen tanks are too heavy. In the office we did have her undergo a 6 minutes walk test with the conserving device and she did well on 2 L pulse. Therefore I will really send a script to her [employer] on the conserving device. The patient also is willing to start the lung cancer screening program. She continues to use her Trelegy inhaler which appears to be effective for her. In addition to that has a short-acting beta agonist. Will continue on her therapy. The patient also has nicotine patches prescribed. She understands she is not smoke on top of the nicotine patches. Although she can use the the great gum or any other nicotine supplements for breakthrough symptoms. 01/25/2022 the patient is here for a pulmonary follow-up visit. Since we last spoke she is doing a little better. She responded well to the Trelegy inhaler. Unfortunate she did not tolerate the Nicotrol inhaler. She did not like the mental. She is still smoking cigarettes. She is smoking almost a pack a day. She is willing to try cutting down to half a pack. The patient understands that she has severe COPD based on her pulmonary function studies. She deferred on her lung cancer screening she did not want after CT scan this time. The patient has been using her oxygen. However she did not get any small portable tanks from her [employer] company,. Therefore we did do another walking test which she again qualify for oxygen with a pulse device. The patient should start 2 L pulse with activity. Also, she should really consider pulmonary rehabilitation. 09/28/2022 the patient is here for pulmonary follow-up visit. Overall she is doing well using the Trelegy inhaler. She has not had to use the rescue inhaler. She could not tolerate the Nicotrol inhaler because of the mental flavor. Although she will try it again. She also has a patch. She is not ready to quit smoking but I will hope that she can cut down some more. She is not participating in the lung cancer screening program which is reassuring. She is using her oxygen with good effect. Will plan to do pulmonary function studies sometime in the fall and hope to set her up with pulmonary rehabilitation. She does have some plan trips this summer. 03/19/2023 the patient is here for pulmonary follow-up visit. She has been doing well at this time. She is tolerating the Trelegy. She has a rescue inhaler that she rarely uses. The patient has been responding well to the oxygen. Unfortunately she continues to smoke cigarettes. She understands that is a health risk to use oxygen smoke as she can cause a fire M hurt herself as well as others. The patient needs to quit altogether. She is participating in the lung cancer screening program. Last CT scan was reassuring. Will follow-up after her next CT scan in October 2022. 10/30/2023 the patient is here for pulmonary follow-up visit. The patient overall okay. She continues to use the Trelegy. She continues to use the oxygen as prescribed. Unfortunately she is still smoking cigarettes. She smoking about a pack a day. Although we did come in agreement that she is going to cut down to half a pack. We did talk about the different ways doing so. She is also participating in the lung cancer screening program. Her last CT scan was back in 10/30/2022 which has rads 1. She has significant calcifications of the coronary arteries likely from her smoking and also has some emphysema. Therefore she is likely to be scheduled for her next CT scan soon. Otherwise will follow-up in 8-12 months. If she has not difficulty she will call for an earlier assessment. 01/14/2025 the patient is here for pulmonary follow-up visit. She does complain of worsening cough with grayish phlegm. Moderate severity. Seems to be getting worse. Denies any fevers or chills. Denies any pleuritic chest pain. She continues her respiratory therapy as prescribed. She did participating in the lung cancer screening program. This was on 01/02/2025. I did personally review the CAT scan demonstrating an opacification of the right middle lobe area. The right middle lobe airway appears to be fairly open except likely some mucus plugging. Therefore, will go ahead and start her on Levaquin and provide her with a Acapella valve to clear mucus out of the airways. In addition to that, will go ahead and repeat her CAT scan again in 2 months. If the areas still abnormal then the patient is agreeable to a bronchoscopy. Otherwise she will go back to the lung cancer screening program. Unfortunately, the patient continues to smoke cigarettes. She is not necessarily ready to quit. Although we talked about the seriousness of the matter as she is getting worse with worsening respiratory symptoms and is only going to continue getting worse. I did send her a nicotine patch in case she changes her mind. [facility] Medical History (Updated 01/14/25 @ 22:03 by William Hall MD) Pneumonia Multiple sclerosis Atherosclerotic cardiovascular disease Abdominal aortic aneurysm Chronic diastolic (congestive) heart failure History of heart attack Essential hypertension Dyslipidemia Chronic respiratory failure COPD (chronic obstructive pulmonary disease) MAXIMO (obstructive sleep apnea) Nicotine dependence, cigarettes, uncomplicated Thyroid nodule Hypothyroidism Adrenal mass Renal mass Fatty liver Morbid obesity Surgical History History of heart artery stent History of cholecystectomy Family History Father CAD (coronary artery disease) Mother No problems noted. Brother CAD (coronary artery disease) Social History Household Members: Other Household Members Other:: lives at friends house Housing: House Alcohol intake: never Patient Tobacco Use Status: Current everyday Tobacco user Tobacco use type: Cigarette Cigarette Packs Per Day: 1 Cigarettes Per Day: 20 Years Smoked: 40 +/- e-Cigarette/Vaping Use: Never Used Second Hand Smoke Exposure: No Substance Use Type: Crack/Cocaine service: No Current occupational status: retired and disabled Cognitive needs: No Hearing needs: No Vision needs: Yes Review of Systems Const Denies chills, Denies fever(s) and Denies headache(s) Eyes Denies change in vision ENT Denies dizziness and Denies headache(s) Card Reports no additional complaints, Denies syncope and Reports dyspnea on exertion Resp Reports change in phlegm color, Reports chest congestion, Reports cough, Reports dyspnea on exertion and Reports wheezing GI Denies abdominal pain and Denies heartburn Skin/Breast Denies rash Neuro Denies Abnormal speech present, Denies dizziness, Denies syncope and Denies headache(s) Aller/Immun Reports wheezing Physical Exam Vital Signs: Last Vital Signs Pulse 85 01/14/25 14:16 BP 138/78 01/14/25 14:16 Pulse Ox 94 01/14/25 14:16 Oxygen Delivery Method Room Air 01/14/25 14:16 BMI result Body Mass Index 42.5 Const General: alert Neck Neck: Yes supple Chest Chest palpation & inspection: normal inspection of the chest Resp Effort & Inspection: normal respiratory effort Auscultation: rhonchi and diminished lung sounds Cardio Rate: regular rate Rhythm: regular rhythm Heart sounds: S1 normal heart sound present and S2 normal heart sound present GI Inspection: Yes normal to inspection Skin General skin exam: no rashes or lesions noted Neuro Speech: No Abnormal speech present Extrem General: Yes normal to inspection Assessment & Plan Assessment & Plan (1) Pneumonia: Code(s): J18.9 - Pneumonia, unspecified organism Category: Medical Qualifiers: Pneumonia type: due to unspecified organism Laterality: right Lung location: middle lobe of lung Qualified Code(s): J18.9 - Pneumonia, unspecified organism (2) Chronic respiratory failure: Code(s): J96.10 - Chronic respiratory failure, unspecified whether with hypoxia or hypercapnia Category: Medical Qualifiers: Respiratory failure complication: hypoxia Qualified Code(s): J96.11 - Chronic respiratory failure with hypoxia (3) COPD (chronic obstructive pulmonary disease): Code(s): J44.9 - Chronic obstructive pulmonary disease, unspecified Category: Medical Qualifiers: COPD type: chronic bronchitis Chronic bronchitis type: simple Qualified Code(s): J41.0 - Simple chronic bronchitis (4) Smoker: Code(s): F17.200 - Nicotine dependence, unspecified, uncomplicated Category: Social Hx (5) Renal mass: Code(s): N28.89 - Other specified disorders of kidney and ureter Category: Medical (6) MAXIMO (obstructive sleep apnea): Comment: non compliant Code(s): G47.33 - Obstructive sleep apnea (adult) (pediatric) Category: Medical (7) Thyroid nodule: Code(s): E04.1 - Nontoxic single thyroid nodule Category: Medical Plan continue Trelegy continue the short-acting beta agonist as needed lung cancer screening program will cut down, sent nicotine patch consider pulmonary rehab Oxygen 2L with sleep and 2L/pulse with small b cylinders with activity Start Levaquin Start CPT with acapella valve repeat CT chest 8 weeks, if no better then will set up for bronchoscopy F/U 4 months Orders: Orders CT chest wo IV con 2 Months J18.9 - Pneumonia, unspecified organism Medications: New levofloxacin 500 mg PO DAILY 10 tabs 0RF 10 days nicotine 1 patch transdermal DAILY 28 ea 3RF 28 days Refilled albuterol sulfate 2.5 mg (3 mL) inhalation TID PRN 270 mL 4RF bronchospasm 30 days Coding Level of Care Code Est Pt Level 4 (76630) Complex EM visit Add On G2211 Diagnoses Pneumonia of right middle lobe due to infectious organism J18.9 Pneumonia type: due to unspecified organism Laterality: right Lung location: middle lobe of lung Chronic respiratory failure with hypoxia J96.11 Respiratory failure complication: hypoxia Simple chronic bronchitis J41.0 COPD type: chronic bronchitis Chronic bronchitis type: simple Smoker F17.200 Renal mass N28.89 MAXIMO (obstructive sleep apnea) G47.33 Thyroid nodule E04.1 Time Spent (min) 17
--- OUTSIDE RECORDS SUMMARY | 2025-01-14 15:32 | XMS_ITS | Patient Health Record ---
Author Organization [facility] Address [address] [place] [address] Care Team Providers Care Systems Admin Name Role Phone Lay QUIÑONES, Avelina Primary Care Provider Unavail able Venancio Lin Unavailable [phone] Allergies No Known Allergies Reason For Referral [...] atherosclerosis of arteries of lower limbs (disorder) ([id number] ) Atherosclerosis of [place] artery of both lower extremities, with unspecified presence of clinical manifestation (I70.203) Active confirmed Plan Of Treatment Pending Test Test Name Order Date [id number] NAIL, 6 OR MORE 10/21/2019 [id number] NAIL, 6 OR MORE 01/27/2020 [id number] NAIL, 6 OR MORE 04/25/2020 [id number] NAIL, 6 OR MORE 02/27/2023 [id number] SKIN LESIONS, OVER 4 02/28/20 23 Insurance Providers Payer Name Payer Address Payer Phone Subscriber Number Group Number Insured Name Patient Relationship to Insured Coverage Start Date Coverage End Date [facility] [employer] Claims [address] [place] [id number] Rena Cancino Self - patient is the insured Medical (General) History Medical History History ICD Code Chicken pox Depression Gall bladder problems Headaches/Migraines Heart disease High blood pressure Joint implants/screws Multiple sclerosis Measles Mumps thyroid CAD Surgical History Surgery Date(Month/Year) gall bladder removed 2014 Heart stent 2013
== END 2025-01-14 14:48 | disposition home or self-care (01) ==
LOC: HO.HPS 14:13
PROVIDERS: PCP Internal Medicine; Visit Provider Hospitalist
DX: J18.9 Pneumonia, unspecified organism (principal); J96.11 Chronic respiratory failure with hypoxia; J41.0 Simple chronic bronchitis; F17.200 Nicotine dependence, unspecified, uncomplicated; N28.89 Other specified disorders of kidney and ureter; G47.33 Obstructive sleep apnea (adult) (pediatric); E04.1 Nontoxic single thyroid nodule
CPT/HCPCS: 99214; G2211

== ENCOUNTER → 2025-01-14 14:12 | Outpatient (BNVA) | payer OTHER, SELFPAY | PROVIDERS: PCP Internal Medicine; Visit Provider Hospitalist | DX: J18.9 Pneumonia, unspecified organism (principal); J96.11 Chronic respiratory failure with hypoxia; J41.0 Simple chronic bronchitis; F17.210 Nicotine dependence, cigarettes, uncomplicated; N28.89 Other specified disorders of kidney and ureter; G47.33 Obstructive sleep apnea (adult) (pediatric); E04.1 Nontoxic single thyroid nodule; Z99.81 Dependence on supplemental oxygen | CPT/HCPCS: 99212 ==

== ENCOUNTER 2025-01-25 08:31 | Outpatient (AMB) | payer OTHER, SELFPAY ==
--- NOTE | 2025-01-25 08:35 | A.OFFPC_ITS ---
Vital Signs 01/25/25 08:37 Height 5 ft 2 in Weight 235 lb BMI 43.0 BP 120/72 Blood Pressure Location Lt brachial Position Sitting Pulse 71 Pulse Source Pulse Oximeter Temp 97.3 F Temp Source Temporal Artery Scan Pulse Oximetry (%) 94 Oxygen Delivery Method Room Air Intake Visit Reasons: 4 mo follow up Intake Note: Patient is here to follow up on MAXIMO, CAD, COPD. 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 Cold Meat Cook: Present Accompanied by: Friend Allergies dimethyl fumarate (Tecfidera) Allergy (Intermediate, Verified 01/25/25 09:05) hives Medication List - Last Reconciled 01/25/25 by Akash Diggs PA-C [adult diapers pull-ups As directed] albuterol sulfate 90 mcg/actuation (Ventolin HFA) 2 puffs inhalation Q6H PRN 30 days albuterol sulfate 2.5 mg (3 mL) inhalation TID PRN 30 days amlodipine 5 mg PO DAILY 90 days aspirin 81 mg PO DAILY atorvastatin 40 mg PO BEDTIME 90 days [Blood pressure cuff As directed] cholecalciferol (vitamin D3) 50 mcg PO DAILY 90 days clotrimazole 1% 1 appl topical BID 4 weeks diclofenac sodium 1% (Arthritis Pain (diclofenac)) 2 grams topical QID PRN 30 days fluocinolone acetonide oil 0.01% (DermOtic Oil) 5 drps otic (ears) BID 7 days mbazuusosal-hdvhadntb-nqfbykig 200-62.5-25 mcg (Trelegy Ellipta) 1 ea PO DAILY gabapentin 400 mg PO TID 30 days incontinence pad, liner, disp BRAND: FIT RIGHT levothyroxine 125 mcg PO DAILY 90 days lisinopril 40 mg PO DAILY 90 days nebulizers As directed nicotine 1 patch transdermal DAILY 28 days nystatin 1 appl topical DAILY PRN 30 days omeprazole 20 mg PO DAILY 90 days Oxygen Home Use As directed peginterferon beta-1a (Plegridy) 125 mcg subcut Q28D [Power lift recliner As directed] tiotropium bromide (Spiriva with HandiHaler) 1 cap inhalation DAILY 30 days tirzepatide (weight loss) (Zepbound) 2.5 mg (0.5 mL) subcut QWEEK 4 weeks underpads (Bed Underpads) As directed [wipes As directed] Tobacco use date assessed: 01/25/25 Fall risk assessment: No Falls in past year Last assessed Fall Risk: 01/25/25 Dental Screening Dental Screen Date: 09/23/24 HPI 4 mo follow up HPI Details Patient is a 69-year-old female here today for follow-up visit. This is the 1st time I am meeting this 69-year-old female with a past medical history significant for coronary artery disease, multiple sclerosis, COPD, tobacco dependency, hypothyroidism. Concern : She reports significant pain in the left knee, which has worsened over time, and has previously received cortisone injections for relief. The patient is considering a referral to an orthopedic surgeon for further management. COPD: The patient also has a history of Chronic Obstructive Pulmonary Disease (COPD) and is currently enrolled in a lung cancer screening program due to her long- term smoking history. She has been smoking since the age of 14 and finds it challenging to quit despite having nicotine patches. The patient is monitored regularly with CT scans as part of her preventative care. [facility] Medical History (Updated 01/25/25 @ 09:14 by Akash Diggs PA-C) Pneumonia Multiple sclerosis Atherosclerotic cardiovascular disease Abdominal aortic aneurysm Chronic diastolic (congestive) heart failure History of heart attack Essential hypertension Dyslipidemia Chronic respiratory failure COPD (chronic obstructive pulmonary disease) MAXIMO (obstructive sleep apnea) Nicotine dependence, cigarettes, uncomplicated Thyroid nodule Hypothyroidism Adrenal mass Renal mass Fatty liver Morbid obesity Surgical History History of heart artery stent History of cholecystectomy Family History Father CAD (coronary artery disease) Mother No problems noted. Brother CAD (coronary artery disease) Social History Household Members: Other Household Members Other:: lives at friends house Housing: House Alcohol intake: never Patient Tobacco Use Status: Current everyday Tobacco user Tobacco use type: Cigarette Cigarette Packs Per Day: 1 Cigarettes Per Day: 20 Years Smoked: 40 +/- e-Cigarette/Vaping Use: Never Used Second Hand Smoke Exposure: Yes Substance Use Type: Crack/Cocaine service: No Current occupational status: retired and disabled Cognitive needs: Yes (Walker, cane) Hearing needs: No Vision needs: Yes Questionnaire Thrive Questionnaire Date Thrive assessed: 09/23/24 I am a: Patient What is your living situation today?: I have a steady place to live Within the past 12 months, did the food you bought not last and you didn't have the money to get more?: Often true Within the past 12 months, did you worry whether your food would run out before you got money to buy more?: Sometimes True Do you have trouble paying for medicines?: Yes Do you have trouble getting transportation to medical appointments?: Yes Do you have trouble paying your heating and electricity bill?: Yes Do you have trouble taking care of your child, family member or friend?: Yes Do you have trouble with day-to-day activities such as bathing, preparing meals, shopping, managing finances, etc.?: Yes Are you currently unemployed and looking for a job?: Yes Are you interested in more education?: No Please select the resources that you would like help with: Housing/Senior Living Currently or been in a relationship where the following occur: I choose not to answer THRIVE Score: 4 SCHUYLER-7 AMB Questionnaire SCHUYLER-7 Date SCHUYLER - 7 assessed: 09/23/24 Source: Developed by Drs. Brent Meade, Nicole Roberts, Dav Giordano and colleagues, with an educational holli from [employer]. Review of Systems Const Denies headache(s) Eyes Denies loss of vision ENT Denies vertigo, Denies dizziness, Denies headache(s) and Denies sore throat Card Denies chest pain, Denies leg edema and Denies lightheadedness Resp Denies cough, Denies hemoptysis and Denies wheezing GI Denies abdominal pain, Denies melena, Denies constipation, Denies diarrhea and Denies vomiting Denies urinary frequency, Denies dysuria and Denies urinary urgency Musc Denies arthralgias, Denies joint swelling, Denies numbness and Denies tingling Neuro Denies Abnormal speech present, Denies behavioral changes, Denies vertigo, Denies dizziness, Denies headache(s), Denies loss of vision, Denies memory loss, Denies numbness and Denies tingling Psych Denies anxiety, Denies behavioral changes, Denies depression, Denies memory loss and Denies panic attacks Gaurav/Lymph Denies easy bleeding and Denies easy bruising Aller/Immun Denies wheezing Physical exam (Primary Care) Vital Signs: Last Vital Signs Temp 97.3 F 01/25/25 08:37 Pulse 71 01/25/25 08:37 BP 120/72 01/25/25 08:37 Pulse Ox 94 01/25/25 08:37 Oxygen Delivery Method Room Air 01/25/25 08:37 BMI result Body Mass Index 43.0 BMI Assessment/Plan discussion: High BMI High, discussed plan: lifestyle, weight reduction and physical activity Tobacco/Smoking Status: Tobacco use Status Tobacco use date assessed 01/25/25 01/25/25 08:43 Patient Tobacco Use Status Current everyday Tobacco 01/25/25 08:43 Tobacco use type Cigarette 01/25/25 08:43 e-Cigarette/Vaping Use Never Used 01/25/25 08:43 Thrive Assessment: Date of Thrive Assessment Date Thrive assessed 09/23/24 01/25/25 08:43 Currently or been in a relationship where the following occur: I choose not to answer Const General: healthy appearing, no acute distress, alert and awake Nutritional Appearance: well nourished Orientation/consciousness: oriented to person, oriented to place and oriented to time HENMT Ears: TM's normal bilaterally General nose exam: Normal nasal mucous membranes and turbinates present Eyes Conjunctivae: conjunctivae normal Sclerae: sclerae normal Pupils: Equal, round and reactive pupils present Neck Neck: Yes no lymphadenopathy and Yes no JVD Thyroid: Thyroid normal Carotids: no bruits Resp Effort & Inspection: normal respiratory effort and not tachypneic Auscultation: no crackles, no rales, no rhonchi and no wheezes Cardio Rate: regular rate Rhythm: regular rhythm Heart sounds: no murmurs and normal S1 and S2 GI Palpation (GI): Soft to palpation, nontender, no hepatomegaly and no splenomegaly Auscultation: normal bowel sounds Skin General skin exam: no rashes or lesions noted and dry skin Neuro General: oriented to person, oriented to place and oriented to time Cranial nerves: Yes Equal, round and reactive pupils present Speech: No Abnormal speech present Gait exam (Neuro): Normal gait present Motor exam (neuro): no tremor noted Extrem Right upper extremity: full ROM Left upper extremity: full ROM Right lower extremity: full ROM; no edema Left lower extremity: full ROM; no edema Psych Mental Status: mental status grossly normal Speech and movement: Normal speech and movement present Affect: normal affect Attitude: cooperative Thought process: Normal thought process present Coding Level of Care Code Est Pt Level 4 (44042) Diagnoses Primary osteoarthritis of left knee M17.12 Osteoarthritis type: primary Simple chronic bronchitis J41.0 COPD type: chronic bronchitis Chronic bronchitis type: simple Tobacco dependence F17.200 Assessment & Plan Assessment & Plan (1) Osteoarthritis of left knee: Code(s): M17.12 - Unilateral primary osteoarthritis, left knee Category: Medical Qualifiers: Osteoarthritis type: primary Qualified Code(s): M17.12 - Unilateral primary osteoarthritis, left knee Plan: The patient will be referred to an orthopedic surgeon for further evaluation and management of her left knee osteoarthritis, which may include consideration for cortisone injections. (2) COPD (chronic obstructive pulmonary disease): Code(s): J44.9 - Chronic obstructive pulmonary disease, unspecified Category: Medical Qualifiers: COPD type: chronic bronchitis Chronic bronchitis type: simple Qualified Code(s): J41.0 - Simple chronic bronchitis Plan: The patient is enrolled in a lung cancer screening program and will continue to undergo annual CT scans to monitor her condition. Continues to follow [facility] pul[facility]. Unfortunately has been very difficult for her to stopped smoking. (3) Tobacco dependence: Code(s): F17.200 - Nicotine dependence, unspecified, uncomplicated Category: Medical Plan: As above Orders: Referrals Orthopedics Referral M17.12 - Unilateral primary osteoarthritis, left knee
[2025-01-25 08:37] VITALS: BP 120/72; PULSE 71; TEMP 36.3; O2SAT 94; BMI 43.0
--- OUTSIDE RECORDS SUMMARY | 2025-01-25 09:38 | XMS_ITS | Patient Health Record ---
Author Organization [facility] Address [address] [place] [address] Care Team Providers Care Inpatient Services Rn Name Role Phone Lay QUIÑONES, Avelina Primary Care Provider Unavail able Venancio Lin Unavailable [phone] Allergies No Known Allergies Reason For Referral [...] atherosclerosis of arteries of lower limbs (disorder) ([id number] ) Atherosclerosis of [place] artery of both lower extremities, with unspecified presence of clinical manifestation (I70.203) Active confirmed Plan Of Treatment Pending Test Test Name Order Date [id number] NAIL, 6 OR MORE 10/21/2019 [id number] NAIL, 6 OR MORE 01/27/2020 [id number] NAIL, 6 OR MORE 04/25/2020 [id number] NAIL, 6 OR MORE 02/27/2023 [id number] SKIN LESIONS, OVER 4 02/28/20 23 Insurance Providers Payer Name Payer Address Payer Phone Subscriber Number Group Number Insured Name Patient Relationship to Insured Coverage Start Date Coverage End Date [facility] CCA SCO Claims [address] [place] [id number] Rena Cancino Self - patient is the insured Medical (General) History Medical History History ICD Code Chicken pox Depression Gall bladder problems Headaches/Migraines Heart disease High blood pressure Joint implants/screws Multiple sclerosis Measles Mumps thyroid CAD Surgical History Surgery Date(Month/Year) gall bladder removed 2014 Heart stent 2013
== END 2025-01-25 09:17 | disposition home or self-care (01) ==
LOC: HO.HMCH 08:32
PROVIDERS: PCP Internal Medicine; Visit Provider Physician Assistant
DX: M17.12 Unilateral primary osteoarthritis, left knee (principal); J41.0 Simple chronic bronchitis; F17.200 Nicotine dependence, unspecified, uncomplicated

== ENCOUNTER → 2025-01-25 08:31 | Outpatient (BNVA) | payer OTHER, SELFPAY | PROVIDERS: PCP Internal Medicine; Visit Provider Physician Assistant | DX: M25.562 Pain in left knee (principal); M17.12 Unilateral primary osteoarthritis, left knee; J41.0 Simple chronic bronchitis; F17.210 Nicotine dependence, cigarettes, uncomplicated | CPT/HCPCS: 99212 ==

== ENCOUNTER 2025-03-16 12:52 | Outpatient (REF) | payer OTHER, SELFPAY ==
--- OUTSIDE RECORDS SUMMARY | 2025-03-17 15:34 | XMS_ITS | Patient Health Record ---
Author Organization [facility] Address [address] [facility] [place] [address] Care Team Providers Care Wood Cut Engraver Name Role Phone Lay QUIÑONES, Avelina Primary Care Provider Unavail able Venancio Lin Unavailable [phone] Allergies No Known Allergies Reason For Referral [...] atherosclerosis of arteries of lower limbs (disorder) ([id number] ) Atherosclerosis of [place] artery of both lower extremities, with unspecified presence of clinical manifestation (I70.203) Active confirmed Plan Of Treatment Pending Test Test Name Order Date [id number] NAIL, 6 OR MORE 10/21/2019 [id number] NAIL, 6 OR MORE 01/27/2020 [id number] NAIL, 6 OR MORE 04/25/2020 [id number] NAIL, 6 OR MORE 02/27/2023 [id number] SKIN LESIONS, OVER 4 02/28/20 23 Insurance Providers Payer Name Payer Address Payer Phone Subscriber Number Group Number Insured Name Patient Relationship to Insured Coverage Start Date Coverage End Date [facility] CCA SCO Claims [address] [place] [address] [id number] Rena Cancino Self - patient is the insured Medical (General) History Medical History History ICD Code Chicken pox Depression Gall bladder problems Headaches/Migraines Heart disease High blood pressure Joint implants/screws Multiple sclerosis Measles Mumps thyroid CAD Surgical History Surgery Date(Month/Year) gall bladder removed 2014 Heart stent 2013
== END 2025-03-16 12:53 | disposition home or self-care (01) ==
LOC: HO.HOSX 12:52
PROVIDERS: Visit Provider Orthopaedic Surgery
DX: Z13.89 Encounter for screening for other disorder (principal)

== ENCOUNTER 2025-03-31 16:09 | Outpatient (REF) | payer OTHER, SELFPAY ==
--- NOTE | ~2025-03-31 | CT_ITS ---
EXAMINATION: CT CHEST WITHOUT CONTRAST CLINICAL INFORMATION: J18.9 - Pneumonia, unspecified organism COMPARISON: CT lung screening on January 02, 2025 and October 26, 2022 TECHNIQUE: Multidetector volumetric CT imaging of the chest was done. Axial MIP volume rendering provided. Sagittal and coronal reformatted images were obtained. This CT examination was performed using dose optimization techniques as appropriate, variously including the following: *Automated exposure control *Adjustment of mA and/or kV according to patient size (this includes techniques or standardized protocols for targeted exams where dose is matched to indication/reason for exam; i.e. extremities or head) *Use of iterative reconstruction technique FINDINGS: CURRENCY COUNTER: No tubes or lines. LUNGS: Bubbly minimal soft tissue density within the trachea likely represents mucous/secretion. There is mild interval loss of the right middle lobe volume, which contains multiple linear coalescent densities that likely reflect combination of residual airspace disease and subsegmental atelectasis. Left lung appears clear. Evaluation for small nodules is limited due to respiratory motion. PLEURA: No pneumothorax or pleural effusion. MEDIASTINUM: Coarse calcifications in the left thyroid gland unchanged from 2022. Heart is normal in size. Severe coronary artery calcifications. No pericardial effusion. Moderate amount of atherosclerotic calcifications along the thoracic aorta. LYMPH NODES: No lymphadenopathy. UPPER ABDOMEN: Vascular calcifications. OSSEOUS STRUCTURES: No acute or suspicious osseous abnormality. CT/CT chest wo IV con IMPRESSION: Mild interval decrease in the overall volume of the right middle lobe compared to prior study in December 2024, containing findings to suggest combination of residual airspace disease and subsegmental atelectasis. Electronically signed by: Jaky Castro MD 03/31/2025 05:26 PM [facility]
--- OUTSIDE RECORDS SUMMARY | 2025-04-01 04:43 | XMS_ITS | Patient Health Record ---
Author Organization [facility] Address [address] [place] [address] Care Team Providers Care Award Machine Operator Name Role Phone Lay QUIÑONES, Avelina Primary Care Provider Unavail able Venancio Lin Unavailable [phone] Allergies No Known Allergies Reason For Referral [...] atherosclerosis of arteries of lower limbs (disorder) ([id number] ) Atherosclerosis of [place] artery of both lower extremities, with unspecified presence of clinical manifestation (I70.203) Active confirmed Plan Of Treatment Pending Test Test Name Order Date [id number] NAIL, 6 OR MORE 10/21/2019 [id number] NAIL, 6 OR MORE 01/27/2020 [id number] NAIL, 6 OR MORE 04/25/2020 [id number] NAIL, 6 OR MORE 02/27/2023 [id number] SKIN LESIONS, OVER 4 02/28/20 23 Insurance Providers Payer Name Payer Address Payer Phone Subscriber Number Group Number Insured Name Patient Relationship to Insured Coverage Start Date Coverage End Date [facility] CCA SCO Claims [address] [place] [id number] Rena Cancino Self - patient is the insured Medical (General) History Medical History History ICD Code Chicken pox Depression Gall bladder problems Headaches/Migraines Heart disease High blood pressure Joint implants/screws Multiple sclerosis Measles Mumps thyroid CAD Surgical History Surgery Date(Month/Year) gall bladder removed 2014 Heart stent 2013
== END 2025-03-31 16:10 | disposition home or self-care (01) ==
LOC: HO.CT 16:09
PROVIDERS: PCP Physician Assistant; Visit Provider Hospitalist
DX: J18.9 Pneumonia, unspecified organism (principal)
CPT/HCPCS: 71250

== ENCOUNTER → 2025-03-31 16:12 | Outpatient (BNV) | payer OTHER, SELFPAY | PROVIDERS: PCP Physician Assistant; Visit Provider Radiology Body Imaging | DX: J18.9 Pneumonia, unspecified organism (principal) | CPT/HCPCS: 71250 ==

== ENCOUNTER 2025-04-14 10:20 | Outpatient (REF) | payer OTHER, SELFPAY ==
--- NOTE | ~2025-04-14 | XR_ITS ---
EXAMINATION: XR KNEE, LEFT CLINICAL INFORMATION: M25.562 - Pain in left knee COMPARISON: March 23, 2022 TECHNIQUE: Three views of the left knee. FINDINGS: Again seen is a focal lucency involving the weightbearing region of the medial femoral condyle with peripheral sclerosis with possible subtle increase in size of lucency since the prior. There is mild narrowing of the medial joint space. There are marginal osteophytes along the medial joint line . Slightly increased since the prior. There are marginal osteophytes involving the lateral femoral condyle and patellofemoral joint. Small volume of joint fluid is visible. Moderate vascular calcifications are evident. XR/XR knee LT 3V IMPRESSION: Stable to slightly increased osteochondral lesion in the medial femoral condyle with mild osteoarthritis and borderline joint effusion. Electronically signed by: Kareem Fajardo MD 04/14/2025 02:18 PM [facility] JOSEPH
--- OUTSIDE RECORDS SUMMARY | 2025-04-15 12:29 | XMS_ITS | Patient Health Record ---
Author Organization [facility] Address [address] [place] [address] Care Team Providers Care Continuous Miner Name Role Phone Lay QUIÑONES, Avelina Primary Care Provider Unavail able Venancio Lin Unavailable [phone] Allergies No Known Allergies Reason For Referral [...] atherosclerosis of arteries of lower limbs (disorder) ([id number] ) Atherosclerosis of [place] artery of both lower extremities, with unspecified presence of clinical manifestation (I70.203) Active confirmed Plan Of Treatment Pending Test Test Name Order Date [id number] NAIL, 6 OR MORE 10/21/2019 [id number] NAIL, 6 OR MORE 01/27/2020 [id number] NAIL, 6 OR MORE 04/25/2020 [id number] NAIL, 6 OR MORE 02/27/2023 [id number] SKIN LESIONS, OVER 4 02/28/20 23 Insurance Providers Payer Name Payer Address Payer Phone Subscriber Number Group Number Insured Name Patient Relationship to Insured Coverage Start Date Coverage End Date [facility] CCA SCO Claims [address] [place] [id number] Rena Cancino Self - patient is the insured Medical (General) History Medical History History ICD Code Chicken pox Depression Gall bladder problems Headaches/Migraines Heart disease High blood pressure Joint implants/screws Multiple sclerosis Measles Mumps thyroid CAD Surgical History Surgery Date(Month/Year) gall bladder removed 2014 Heart stent 2013
== END 2025-04-14 10:21 | disposition home or self-care (01) ==
LOC: HO.HOSX 10:20
PROVIDERS: Visit Provider Orthopaedic Surgery
DX: M17.12 Unilateral primary osteoarthritis, left knee (principal)
CPT/HCPCS: 20610; 73562; 99212; J1010; J2003

== ENCOUNTER 2025-04-14 13:46 | Outpatient (AMB) | payer OTHER, SELFPAY ==
--- NOTE | 2025-04-14 13:59 | A.OFFVIS_ITS ---
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 She describes her pain as sharp in nature. Her pain has gotten worse over the last year in spite of continued non operative treatments. She has tried gabapentin and a home exercise program which gave her mild relief. She did have a cortisone injection given into her left knee several years ago which gave her fairly good relief. Allergies dimethyl fumarate (Tecfidera) Allergy (Intermediate, Verified 04/14/25 14:12) hives Medication List - Last Reconciled 04/14/25 by Gary Ribeiro MD [adult diapers pull-ups As directed] albuterol sulfate 90 mcg/actuation (Ventolin HFA) 2 puffs inhalation Q6H PRN 30 days albuterol sulfate 2.5 mg (3 mL) inhalation TID PRN 30 days amlodipine 5 mg PO DAILY 90 days aspirin 81 mg PO DAILY atorvastatin 40 mg PO BEDTIME 90 days [Blood pressure cuff As directed] cholecalciferol (vitamin D3) 50 mcg PO DAILY 90 days clotrimazole 1% 1 appl topical BID 4 weeks diclofenac sodium 1% (Arthritis Pain (diclofenac)) 2 grams topical QID PRN 30 days fluocinolone acetonide oil 0.01% (DermOtic Oil) 5 drps otic (ears) BID 7 days ujofytmkpxa-gupkopitk-ezbhypdf 200-62.5-25 mcg (Trelegy Ellipta) 1 ea PO DAILY gabapentin 400 mg PO TID 30 days incontinence pad, liner, disp BRAND: FIT RIGHT levothyroxine 125 mcg PO DAILY 90 days lisinopril 40 mg PO DAILY 90 days nebulizers As directed nicotine 1 patch transdermal DAILY 28 days nystatin 1 appl topical DAILY PRN 30 days ofatumumab (Kesimpta Pen) 20 mg (0.4 mL) subcut QMONTH 30 days omeprazole 20 mg PO DAILY 90 days Oxygen Home Use As directed [Power lift recliner As directed] tiotropium bromide (Spiriva with HandiHaler) 1 cap inhalation DAILY 30 days tirzepatide (weight loss) (Zepbound) 2.5 mg (0.5 mL) subcut QWEEK 4 weeks underpads (Bed Underpads) As directed [wipes As directed] [facility] Medical History (Updated 04/14/25 @ 14:29 by Gary Ribeiro MD) Left knee pain Pneumonia Multiple sclerosis Atherosclerotic cardiovascular disease Abdominal aortic aneurysm Chronic diastolic (congestive) heart failure History of heart attack Essential hypertension Dyslipidemia Chronic respiratory failure COPD (chronic obstructive pulmonary disease) MAXIMO (obstructive sleep apnea) Nicotine dependence, cigarettes, uncomplicated Thyroid nodule Hypothyroidism Adrenal mass Renal mass Fatty liver Morbid obesity Surgical History History of heart artery stent History of cholecystectomy Family History Father CAD (coronary artery disease) Mother No problems noted. Brother CAD (coronary artery disease) Social History Household Members: Other Household Members Other:: lives at friends house Housing: House Alcohol intake: never Patient Tobacco Use Status: Current everyday Tobacco user Tobacco use type: Cigarette Cigarette Packs Per Day: 1 Cigarettes Per Day: 20 Years Smoked: 40 +/- e-Cigarette/Vaping Use: Never Used Second Hand Smoke Exposure: Yes Substance Use Type: Crack/Cocaine service: No Current occupational status: retired and disabled Cognitive needs: Yes (Walker, cane) Hearing needs: No Vision needs: Yes Physical Exam Vital Signs: BMI result Body Mass Index 43.0 Extrem Other: Left knee examination shows a minimal effusion, palpable crepitus with range of motion, pain with range of motion, no instability Office Procedures AMB Joint Injection/Aspiration Joint Injection/Aspiration Primary Site: Left Knee Prep: site was prepped using aseptic technique Injected: 40 mg of, DepoMedrol, with 3 mL of and 1% plain Lidocaine Procedure: The patient tolerated the procedure well Coding 89834 - Large joint Procedure code (CPT) selection complete Results Reviewed Results Reviewed: X-rays of the patient's left knee show moderate joint space narrowing, subchondral sclerosis, no acute bony abnormalities Assessment & Plan Assessment & Plan (1) Osteoarthritis of left knee: Code(s): M17.12 - Unilateral primary osteoarthritis, left knee Category: Medical Plan Ms. Cancino presents with left knee pain due to osteoarthritis. The risks and benefits of a left knee cortisone injection were discussed at length with the patient. The patient wished to proceed. She tolerated the injection well. She will continue with her home exercise program. She will contact me prior to her follow-up appointment in 3 months should any questions or concerns arise. Feel free to call me at any time should questions regarding her orthopedic management arise. I spent 22 minutes in reviewing the patient's records and imaging studies, seeing the patient and documenting in the medical record. Orders: Orders XR knee LT 3V Today M25.562 - Pain in left knee AMB Joint Injection/Aspiration Today M17.12 - Unilateral primary osteoarthritis, left knee Coding Level of Care Code Est Pt Level 3 (91937) Complex visit Add On G2211 Diagnoses Osteoarthritis of left knee M17.12 CPT Codes Coding - 39007 Large joint: 40018 - Large joint ([id number])
[2025-04-14 14:12] VITALS: BMI 43.0
== END 2025-04-14 14:24 | disposition home or self-care (01) ==
LOC: HO.HOS 13:47
PROVIDERS: PCP Internal Medicine; Visit Provider Orthopaedic Surgery
DX: M17.12 Unilateral primary osteoarthritis, left knee (principal)
CPT/HCPCS: 20610; 99213

== ENCOUNTER → 2025-04-14 14:02 | Outpatient (BNV) | payer OTHER, SELFPAY | PROVIDERS: Visit Provider Radiology Diagnostic Radiology | DX: M17.12 Unilateral primary osteoarthritis, left knee (principal); M25.562 Pain in left knee | CPT/HCPCS: 73562 ==

== ENCOUNTER 2025-05-11 09:27 | Outpatient (AMB) | payer OTHER, SELFPAY ==
--- NOTE | 2025-05-11 09:47 | A.OFFVIS_ITS ---
Intake Visit Reasons: Follow Up Allergies dimethyl fumarate (Tecfidera) Allergy (Intermediate, Verified 05/11/25 09:55) hives Medication List - Last Reconciled 05/11/25 by Glo Wick CNP [adult diapers pull-ups As directed] albuterol sulfate 90 mcg/actuation (Ventolin HFA) 2 puffs inhalation Q6H PRN 30 days albuterol sulfate 2.5 mg (3 mL) inhalation TID PRN 30 days amlodipine 5 mg PO DAILY 90 days aspirin 81 mg PO DAILY atorvastatin 40 mg PO BEDTIME 90 days [Blood pressure cuff As directed] cholecalciferol (vitamin D3) 50 mcg PO DAILY 90 days clotrimazole 1% 1 appl topical BID 4 weeks diclofenac sodium 1% (Arthritis Pain (diclofenac)) 2 grams topical QID PRN 30 days fluocinolone acetonide oil 0.01% (DermOtic Oil) 5 drps otic (ears) BID 7 days qmpcdqxgwcc-dyhdsnuxu-yckagxnc 200-62.5-25 mcg (Trelegy Ellipta) 1 ea PO DAILY gabapentin 400 mg PO TID 30 days incontinence pad, liner, disp BRAND: FIT RIGHT levothyroxine 125 mcg PO DAILY 90 days lisinopril 40 mg PO DAILY 90 days [Nebulizer machine As directed] nebulizers As directed nicotine 1 patch transdermal DAILY nystatin 1 appl topical DAILY PRN 30 days ofatumumab (Kesimpta Pen) 20 mg (0.4 mL) subcut QMONTH 30 days omeprazole 20 mg PO DAILY 90 days Oxygen Home Use As directed [Power lift recliner As directed] tiotropium bromide (Spiriva with HandiHaler) 1 cap inhalation DAILY 30 days tirzepatide (weight loss) (Zepbound) 2.5 mg (0.5 mL) subcut QWEEK 4 weeks underpads (Bed Underpads) As directed [wipes As directed] HPI Comments Details: She was doing okay with Kesimpta which she started in 07/2024, no medication side effects. MS stable, no new symptoms. Energy level was about the same, some fatigue and naps during the day. Sleep was so-so. Balance was off, walking with walker, no falls. No issues with speech or swallowing. Diplopia on right gaze was unchanged. Daily headache was unchanged. Diffuse aches and pains, recently got cortisone injection to left knee which helps some. She was on Plegridy (which she did well with) from 2018 until 06/2024 as medication no longer covered by insurance. Tried Avonex, but had trouble using and has needle phobia. She presented to on 09/02/14 with a 5-day history of binocular diplopia. She also felt unsteady and dizzy, particularly with her eyes open. Stopped Tecfidera because of side effects because of a bad rash. [facility] Medical History (Updated 04/14/25 @ 14:29 by Gary Ribeiro MD) Left knee pain Pneumonia Multiple sclerosis Atherosclerotic cardiovascular disease Abdominal aortic aneurysm Chronic diastolic (congestive) heart failure History of heart attack Essential hypertension Dyslipidemia Chronic respiratory failure COPD (chronic obstructive pulmonary disease) MAXIMO (obstructive sleep apnea) Nicotine dependence, cigarettes, uncomplicated Thyroid nodule Hypothyroidism Adrenal mass Renal mass Fatty liver Morbid obesity Surgical History History of heart artery stent History of cholecystectomy Family History Father CAD (coronary artery disease) Mother No problems noted. Brother CAD (coronary artery disease) Social History Household Members: Other Household Members Other:: lives at friends house Housing: House Alcohol intake: never Patient Tobacco Use Status: Current everyday Tobacco user Tobacco use type: Cigarette Cigarette Packs Per Day: 1 Cigarettes Per Day: 20 Years Smoked: 40 +/- e-Cigarette/Vaping Use: Never Used Second Hand Smoke Exposure: Yes Substance Use Type: Crack/Cocaine service: No Current occupational status: retired and disabled Cognitive needs: Yes (Walker, cane) Hearing needs: No Vision needs: Yes Review of Systems Const Denies chills, Denies daytime sleepiness, Denies difficulty sleeping, Denies fatigue, Denies fever(s), Denies frequent falls, Reports headache(s), Denies increased appetite, Denies poor appetite, Denies snoring, Denies weakness, Denies weight gain and Denies weight loss Eyes Denies loss of vision ENT Denies vertigo, Denies dizziness, Reports headache(s) and Denies neck pain Card Denies chest pain at rest, Denies chest pain with activity, Denies syncope, Denies leg edema, Denies palpitations, Denies dyspnea and Denies dyspnea on exertion Resp Denies cough, Denies dyspnea, Denies dyspnea on exertion and Denies snoring GI Denies abdominal pain, Denies constipation, Denies heartburn, Denies diarrhea and Denies nausea Denies urinary frequency, Denies urinary incontinence and Denies urinary urgency Musc Reports abnormal gait (balance difficulty), Denies back pain, Denies myalgias, Denies arthralgias, Denies neck pain, Reports numbness and Reports tingling Neuro Reports abnormal gait (balance difficulty), Denies vertigo, Denies dizziness, Denies syncope, Denies frequent falls, Reports headache(s), Denies lack of coordination, Denies loss of vision, Denies memory loss, Reports numbness, Denies Other visual disturbances, Denies restless legs, Denies seizure-like activity, Reports tingling, Denies paresthesias, Denies tremor(s) and Denies weakness Psych Denies anxiety, Denies depression, Denies auditory hallucinations, Denies memory loss and Denies visual hallucinations Endo Denies fatigue and Denies palpitations Physical Exam Const Other: General Appearance:? normal, in no acute distress. Heart:? S1, S2 normal, no murmurs. Lungs:? clear anteriorly and posteriorly. Musculoskeletal:? normal. Extremities:? no edema. Psych:? alert, oriented, cognitive function intact, cooperative with exam. Neuro Other: Abnormal Neurological Findings:?Slight left BETHANY. Walks with walker. Mental Status: alert and oriented X 3. Normal attention, orientation, memory, and affect. Cranial Nerves: Pupils are equal, round, and reactive to light. External ocular muscles with weakness of left gaze and partial BETHANY. Visual pillai are full, no ptosis. Face is symmetrical, no facial weakness or droop. Facial sensations are normal. Tongue protrudes in midline. Palate elevates symmetrically. Shoulder shrugging is normal Motor Examination: Normal muscle tone, bulk and strength. No atrophy or fasciculations. No drift of the extended upper extremities. DTR 2+. Plantars are flexor. Sensory Exam: Normal light touch, temperature, pinprick, vibration, and joint- position sensations. Rhomberg sign is absent. Gait Exam: Mild truncal ataxia on tandem walking, walks with walker. Cerebellar Signs: Ffomep-bs-dfon is okay. Extrapyramidal System: No tremor, rigidity with normal facial expressions. No bradykinesia. No bradyphrenia. Normal arm swing and posture. No propulsion or retropulsion. Speech: Normal. Results Reviewed Results Reviewed: Abnormal JOSEPH on the right. Rest of the DENTAL ASSOCIATE screen was normal. 12/2022 MRI brain: stable white matter lesions. 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 MRI 07/14/19 was stable with no new lesions. Assessment & Plan Assessment & Plan (1) Multiple sclerosis: Code(s): G35 - Multiple sclerosis Category: Medical Plan: Continue Kesimpta Auto-injector 20mg/0.4mL subcutaneous monthly. She did not have labs done that were ordered at last appointment, and labs were requested again. Follow up in 6 months or sooner as needed. Plan Meds tried: Tecfidera (allergic), Plegrity ([id number], worked but not covered by insurance), Avonex (had trouble using and needle phobia) Orders: Orders Liver Panel Today G35 - Multiple sclerosis Complete Blood Count Auto Diff Today G35 - Multiple sclerosis Hepatitis B Profile Today G35 - Multiple sclerosis Coding Level of Care Code Est Pt Level 4 (18486) Diagnoses Multiple sclerosis G35
--- OUTSIDE RECORDS SUMMARY | 2025-05-11 12:05 | XMS_ITS | Patient Health Record ---
Author Organization [facility] Address [address] [place] [address] Care Team Providers Care Inspector Wire Rope Name Role Phone Lay QUIÑONES, Avelina Primary Care Provider Unavail able Venancio Lin Unavailable [phone] Allergies No Known Allergies Reason For Referral [...] atherosclerosis of arteries of lower limbs (disorder) ([id number] ) Atherosclerosis of [place] artery of both lower extremities, with unspecified presence of clinical manifestation (I70.203) Active confirmed Plan Of Treatment Pending Test Test Name Order Date [id number] NAIL, 6 OR MORE 10/21/2019 [id number] NAIL, 6 OR MORE 01/27/2020 [id number] NAIL, 6 OR MORE 04/25/2020 [id number] NAIL, 6 OR MORE 02/27/2023 [id number] SKIN LESIONS, OVER 4 02/28/20 23 Insurance Providers Payer Name Payer Address Payer Phone Subscriber Number Group Number Insured Name Patient Relationship to Insured Coverage Start Date Coverage End Date [facility] CCA SCO Claims [address] [place] [id number] Rena Cancino Self - patient is the insured Medical (General) History Medical History History ICD Code Chicken pox Depression Gall bladder problems Headaches/Migraines Heart disease High blood pressure Joint implants/screws Multiple sclerosis Measles Mumps thyroid CAD Surgical History Surgery Date(Month/Year) gall bladder removed 2014 Heart stent 2013
== END 2025-05-11 10:02 | disposition home or self-care (01) ==
LOC: HO.HSM 09:28
PROVIDERS: PCP Physician Assistant; Visit Provider Registered Nurse
DX: G35.D Multiple sclerosis, unspecified (principal)
CPT/HCPCS: 99214

== ENCOUNTER → 2025-05-11 09:27 | Outpatient (BNVA) | payer OTHER, SELFPAY | PROVIDERS: PCP Physician Assistant; Visit Provider Registered Nurse | DX: G35.D Multiple sclerosis, unspecified (principal) | CPT/HCPCS: 99212 ==

== ENCOUNTER 2025-05-12 10:27 | Outpatient (REF) | payer OTHER, SELFPAY ==
[2025-05-12 10:41] LABS: MANUAL DIFF FLAG NO
[2025-05-12 10:53] LABS: Hematocrit 53.8 % (37.0-47.0); Hemoglobin 17.4 g/dl (12.0-16.0); Imm Gran Abs Auto 0.05 X10*3/uL (0.00-0.03); Imm Gran Pct Auto 0.4 % (0.0-0.4); Lymphocytes Absolute Auto 1.7 X10*3/uL (1.2-4.9); Mean Corpuscular HGB Conc 32.3 g/dl (31.0-35.0); Mean Corpuscular Hemoglobin 28.5 pg (27.0-33.0); Mean Corpuscular Volume 88.2 fL (80.0-98.0); NRBC Abs Auto 0.000 X10*3/uL (0.0-0.012); NRBC Pct Auto 0.0 /100WBC (0.0-0.2); Platelet Count 182 X10*3/uL (160-400); Red Blood Count 6.10 X10*6/uL (4.20-5.50); White Blood Count 11.7 X10*3/uL (4.8-10.8)
[2025-05-12 11:19] LABS: Alanine Aminotransferase 20 U/L (0-31); Albumin Level 4.1 g/dL (3.5-5.0); Alkaline Phosphatase 143 U/L (39-117); Aspartate Amino Transferase 24 U/L (5-31); Total Protein 7.1 g/dL (6.5-8.0)
[2025-05-12 11:39] LABS: HBS Num1 0.45 mIU/mL (0-7.99); HBc Num1 0.06 S/CO (0.00-0.79); HBsAGNum1 0.31 S/CO (0.00-0.99); Hepatitis B Surface Antigen Negative (Negative); ~Hepatitis B Surface Antibody NONREACTIVE (Nonreactive)
--- OUTSIDE RECORDS SUMMARY | 2025-05-12 11:42 | XMS_ITS | Patient Health Record ---
Author Organization [facility] Address [address] [place] [address] Care Team Providers Care Fashion Consultant Name Role Phone Lay QUIÑONES, Avelina Primary Care Provider Unavail able Venancio Lin Unavailable [phone] Allergies No Known Allergies Reason For Referral [...] atherosclerosis of arteries of lower limbs (disorder) ([id number] ) Atherosclerosis of [place] artery of both lower extremities, with unspecified presence of clinical manifestation (I70.203) Active confirmed Plan Of Treatment Pending Test Test Name Order Date [id number] NAIL, 6 OR MORE 10/21/2019 [id number] NAIL, 6 OR MORE 01/27/2020 [id number] NAIL, 6 OR MORE 04/25/2020 [id number] NAIL, 6 OR MORE 02/27/2023 [id number] SKIN LESIONS, OVER 4 02/28/20 23 Insurance Providers Payer Name Payer Address Payer Phone Subscriber Number Group Number Insured Name Patient Relationship to Insured Coverage Start Date Coverage End Date [facility] [employer] Claims [address] [place] [id number] Rena Cancino Self - patient is the insured Medical (General) History Medical History History ICD Code Chicken pox Depression Gall bladder problems Headaches/Migraines Heart disease High blood pressure Joint implants/screws Multiple sclerosis Measles Mumps thyroid CAD Surgical History Surgery Date(Month/Year) gall bladder removed 2014 Heart stent 2013
== END 2025-05-12 10:28 | disposition home or self-care (01) ==
LOC: HO.LAB 10:27
PROVIDERS: PCP Internal Medicine; Visit Provider Registered Nurse
DX: G35.D Multiple sclerosis, unspecified (principal)
CPT/HCPCS: 36415; 80076; 85025; 86704; 86706; 87340